=== PATIENT | male | born 1960 | race Caucasian/White ===

== ENCOUNTER 2018-04-21 05:19 | Inpatient (IN) | payer SELFPAY ==
--- OUTSIDE RECORDS SUMMARY | 2018-04-21 05:20 | XMS REPORT | Clinical Summary ---
:1960 Author Organization [facility] Address [address] [place] [id number] Care Team Providers Name Role Phone Asked, No Pcp Primary Care Provider Unavailable Allergies Active Allergy Reactions Severity Noted Date Comments Codeine Rash Low 11/17/2016 Current Medications Prescription Sig. Disp. Refills Start Date End Date Status aspirin (ECOTRIN) 81 MG Take 81 mg by mouth Active enteric coated tablet every morning. multivitamin (THERAGRAN) Take 1 tablet by Active tablet mouth every morning. garlic capsule Take 1 capsule by Active mouth every morning. Active Problems Problem Noted Date Chest pain 11/17/2016 Social History Tobacco Use Types Packs/Day Years Used Date Never Smoker Sex Assigned at Date Recorded Not on file Last Filed Vital Signs Not on file Plan of Treatment Health Maintenance Due Date Last Done Comments COLON CANCER SCREENING 2009 SHINGRIX VACCINE (#1) 2009 INFLUENZA VACCINE 05/31/2018 Results Not on fileafter 04/20/2017
[2018-04-21 06:15] LABS: Absolute Lymphocytes (CBC) 3.3 K/uL (0.7-4.9); Absolute Monocytes 0.7 K/uL (0.1-1.3); Basophils % 0.8 % (0-1.3); Eosinophils % 2.3 % (0-4.4); Lymphocytes % 40.7 % (15.3-44.8); MCH 29.1 pg (27.0-35.0); MCV 87.5 fL (80-100); MPV 8.5 fL (7.6-11.3); Monocytes % 8.1 % (3.3-12.3); RBC Red Blood Cell Count 5.48 M/uL (4.33-5.43)
[2018-04-21 06:31] LABS: Protime INR 0.93
[2018-04-21 06:33] LABS: Bilirubin Direct 0.2 mg/dL (0-0.2); Magnesium 2.2 mg/dL (1.8-2.4); Potassium 3.9 mmol/L (3.5-5.1)
[2018-04-21 09:52] LABS: CKMB Creatine Kinase MB 10.6 ng/mL (0.3-3.6)
--- NOTE | 2018-04-21 10:04 | RAD REPORT ---
EXAM DESCRIPTION: Cinda Single View04/21/2018 5:52 am CLINICAL HISTORY: Chest pain COMPARISON: 2014 FINDINGS: The lungs appear clear of acute infiltrate. The heart is normal size IMPRESSION: No acute abnormalities displayed
--- NOTE | 2018-04-21 10:21 | EDPHYS ---
Physician Documentation [facility] Name: Panchito Ramirez Age: 57 yrs Sex: Male : 1960 Arrival Date: 04/21/2018 Time: 05:22 Bed 14 Private MD: ED Physician Vasquez Farris HPI: 04/21 06:18 This 57 yrs old Male presents to ER via Ambulatory with complaints of Chest jm pain. 06:18 The patient or guardian reports chest pain that is located primarily in the substernal [facility] area. Onset: gradually, at 5 am. The pain radiates to the left shoulder. The chest pain is described as aching. Duration: The patient or guardian reports a single episode, that is still ongoing. This is a 57 year old male whom denies any chronic medical conditions that presents to the ED with chest pain shich radiates across the left side of his chest beginning this morning. Patient states having multiple episodes of chest pain over the past 8 years with negative results. Most recent stress test was 1.5 years ago at [facility]. Patient denies smoking tobacco, denies recreational drug use. Patient states he has been diagnosed with anxiety in previous ED visits. Patient has a family history of CAD at advanced age. . Historical: - Allergies: 05:32 No Known Allergies; bp - Home Meds: 05:32 None [Active]; bp - PMHx: 05:32 Anxiety; bp - Immunization history:: Adult Immunizations up to date. - Social history:: Smoking status: Patient/guardian denies using tobacco. - Ebola Screening: : Patient negative for fever greater than or equal to 101.5 degrees Fahrenheit, and additional compatible Ebola Virus Disease symptoms Patient denies exposure to infectious person Patient denies travel to an Ebola-affected area in the 21 days before illness onset No symptoms or risks identified at this time. ROS: 06:15 Constitutional: Negative for fever, chills, and weight loss. jmm 06:15 Abdomen/GI: Negative for abdominal pain, nausea, vomiting, diarrhea, and constipation, Back: Negative for injury and pain, : Negative for injury, bleeding, discharge, and swelling. 06:15 Neuro: Negative for headache, weakness, numbness, tingling, and seizure, Psych: Negative for depression, anxiety, suicide ideation, homicidal ideation, and hallucinations. 06:15 Cardiovascular: Positive for chest pain. 06:15 Respiratory: Positive for shortness of breath. 06:15 MS/extremity: Positive for pain. 06:15 All other systems are negative. Exam: 06:15 Head/Face: atraumatic. Chest/axilla: Normal chest wall appearance and motion. jmm Nontender with no deformity. No lesions are appreciated. Cardiovascular: Regular rate and rhythm. No gallops, murmurs, or rubs. Full/Equal distal pulses. Respiratory: Lungs have equal breath sounds bilaterally, clear to auscultation. No rales, rhonchi or wheezes noted. No increased work of breathing, no retractions or nasal flaring. 06:15 Constitutional: The patient appears in no acute distress, alert, awake. 06:15 Back: ROM is normal. 06:15 Musculoskeletal/extremity: Extremities: ROM: intact in all extremities. 06:15 Skin: Appearance: Color: normal in color. 06:15 Neuro: Orientation: is normal, Mentation: is normal, Memory: is normal. 06:15 Psych: Behavior/mood is pleasant, cooperative, anxious. Vital Signs: 05:32 BP 150 / 98; Pulse 77; Resp 20; Temp 98; Pulse Ox 100% ; Weight 81.65 kg; Height 5 ft. bp 10 in. (177.80 cm); 05:35 BP 145 / 100; Pulse 79; Resp 15; Pulse Ox 100% ; bp 06:52 BP 139 / 93; Pulse 74; Resp 17; Pulse Ox 98% on R/A; rv 07:17 BP 125 / 95; Pulse 76; Resp 16; Pulse Ox 98% on R/A; em 08:21 BP 117 / 85; Pulse 71; Resp 16; Pulse Ox 100% on R/A; mh5 05:32 Body Mass Index 25.83 (81.65 kg, 177.80 cm) bp MDM: 05:41 Patient medically screened. gs 10:18 The patient was not given aspirin in the Emergency Department. Patient reports taking [facility] aspirin within the past 24 hours. Data reviewed: vital signs, nurses notes, lab test result(s), EKG, radiologic studies, plain films. Physician consultation: Nasir Payton DO. 04/21 05:33 Order name: Basic Metabolic Panel; Complete Time: 06:37 gs 04/21 05:33 Order name: CBC with Diff; Complete Time: 06:37 04/21 05:33 Order name: LFT's; Complete Time: 06:37 04/21 05:33 Order name: Magnesium; Complete Time: 06:37 04/21 05:33 Order name: PT-INR; Complete Time: 06:37 04/21 05:33 Order name: Troponin (emerg Dept Use Only); Complete Time: 06:37 04/21 05:33 Order name: XRAY Chest (1 view); Complete Time: 10:09 04/21 05:33 Order name: EKG; Complete Time: 05:34 04/21 07:27 Order name: D-Dimer; Complete Time: 08:00 [facility] 04/21 08:49 Order name: Ckmb; Complete Time: 09:54 04/21 08:49 Order name: Creatine Phosphokinase; Complete Time: 09:54 04/21 08:49 Order name: Troponin (emerg Dept Use Only); Complete Time: 09:52 04/21 10:32 Order name: Lipid Profile; Complete Time: 11:14 [facility] 04/21 05:33 Order name: Cardiac monitoring; Complete Time: 05:50 04/21 05:33 Order name: EKG - Nurse/Tech; Complete Time: 05:50 04/21 05:33 Order name: IV Saline Lock; Complete Time: 06:32 04/21 05:33 Order name: Labs collected and sent; Complete Time: 06:32 04/21 05:33 Order name: O2 Per Protocol; Complete Time: 05:50 04/21 05:33 Order name: O2 Sat Monitoring; Complete Time: 05:50 04/21 08:49 Order name: EKG; Complete Time: 08:49 em 04/21 08:49 Order name: EKG - Nurse/Tech; Complete Time: 09:30 em Administered Medications: 11:01 Not Given (Physician Discretion): Aspirin Chewable Tablet 324 mg PO once; 81 mg tablets iw x 4 Disposition: 19:07 Co-signature as Attending Physician, Vasquez Farris MD. Disposition: 04/21/18 10:20 Hospitalization ordered by Nasir Payton for Inpatient Admission. Preliminary diagnosis is Non-ST elevation (NSTEMI) myocardial infarction. - Bed requested for Telemetry/MedSurg (Inpatient). - Status is Inpatient Admission. em - Condition is Stable. - Problem is new. - Symptoms have improved. UTI on Admission? No Signatures: Dispatcher [employer] Sandi Garcia, RN RN Landen Chen PA PA [facility] Livan, Dejon, MANUFACTURING PRODUCTION TECHNICIAN MANUFACTURING PRODUCTION TECHNICIAN em Sandip Chen MD MD rn Starr, Gregory, MD MD Maurisio Hathaway RN RN bp Williams, Irene RN iw Corrections: (The following items were deleted from the chart) 08:23 05:33 Urine Dipstick-Ancillary ordered. em 10:50 10:20 Hospitalization Ordered by Nasir Payton DO for Inpatient Admission. Preliminary diagnosis is Non-ST elevation (NSTEMI) myocardial infarction. Bed requested for Telemetry/MedSurg (Inpatient). Status is Inpatient Admission. Condition is Stable. Problem is new. Symptoms have improved. UTI on Admission? No. [facility] 11:56 10:50 04/21/2018 10:20 Hospitalization Ordered by Nasir Payton DO for Inpatient em Admission. Preliminary diagnosis is Non-ST elevation (NSTEMI) myocardial infarction. Bed requested for Telemetry/MedSurg (Inpatient). Status is Inpatient Admission. Condition is Stable. Problem is new. Symptoms have improved. UTI on Admission? No. dw
--- NOTE | 2018-04-21 10:21 | ER ---
Nurse's Notes [facility] Name: Panchito Ramirez Age: 57 yrs Sex: Male : 1960 Arrival Date: 04/21/2018 Time: : Bed 14 Private MD: Diagnosis: Non-ST elevation (NSTEMI) myocardial infarction Presentation: 04/21 05:31 Presenting complaint: Patient states: I'VE GOT THIS PAIN IN MY CHEST THAT FEELS LIKE bp INDIGESTION. Transition of care: patient was not received from another setting of care. Onset of symptoms was April 21, 2018 at 05:00. Risk Assessment: Do you want to hurt yourself or someone else? Patient reports no desire to harm self or others. Initial Sepsis Screen: Does the patient meet any 2 criteria? No. Patient's initial sepsis screen is negative. Does the patient have a suspected source of infection? No. Patient's initial sepsis screen is negative. Care prior to arrival: Medication(s) given: ASA, 325 mg. 05:31 Method Of Arrival: Ambulatory bp 05:31 Acuity: ION 3 bp Triage Assessment: 05:32 General: Appears in no apparent distress. comfortable, Behavior is cooperative, bp appropriate for age, anxious. Pain: Complains of pain in anterior aspect of left upper chest. EENT: No deficits noted. Neuro: Level of Consciousness is awake, alert, obeys commands, Oriented to person, place, time, situation, Appropriate for age. Cardiovascular: Reports chest pain, since 0500 Rhythm is sinus rhythm. Respiratory: Airway is patent Respiratory effort is even, unlabored, Respiratory pattern is regular, symmetrical. GI: No signs and/or symptoms were reported involving the gastrointestinal system. : No signs and/or symptoms were reported regarding the genitourinary system. Derm: No deficits noted. Musculoskeletal: Circulation, motion, and sensation intact. Range of motion: intact in all extremities. Historical: - Allergies: 05:32 No Known Allergies; bp - Home Meds: 05:32 None [Active]; bp - PMHx: 05:32 Anxiety; bp - Immunization history:: Adult Immunizations up to date. - Social history:: Smoking status: Patient/guardian denies using tobacco. - Ebola Screening: : Patient negative for fever greater than or equal to 101.5 degrees Fahrenheit, and additional compatible Ebola Virus Disease symptoms Patient denies exposure to infectious person Patient denies travel to an Ebola-affected area in the 21 days before illness onset No symptoms or risks identified at this time. Screenin:36 Abuse screen: Denies threats or abuse. Denies injuries from another. Nutritional bp screening: No deficits noted. Tuberculosis screening: No symptoms or risk factors identified. Fall Risk None identified. Assessment: 05:35 Reassessment: PT SEEN FOR SAME ON MX PREVIOUS VISITS, STATES CLEAN MX UNREMARKABLE bp STRESS TESTS AND MX DIAGNOSES OF ANXIETY. 06:53 Reassessment: Patient and/or family updated on plan of care and expected duration. Pain rv level reassessed. Patient is alert, oriented x 3, equal unlabored respirations, skin warm/dry/pink. patient comfortable lying on bed. vitals are within normal limits. pain subsided. 07:02 Reassessment: patient's lab results are normal. report given to next shift. rv 07:10 General: Appears in no apparent distress. comfortable, Behavior is calm, cooperative. em Pain: Complains of pain in anterior aspect of left upper chest Quality of pain is described as "aching pressure" Pain began 0500 this morning. Neuro: Level of Consciousness is awake, alert, obeys commands, Oriented to person, place, time, situation. Cardiovascular: Capillary refill < 3 seconds Patient's skin is warm and dry. Respiratory: Airway is patent Respiratory effort is even, unlabored, Respiratory pattern is regular, symmetrical. GI: Abdomen is flat. : No signs and/or symptoms were reported regarding the genitourinary system. EENT: No signs and/or symptoms were reported regarding the EENT system. Derm: Skin is intact, Skin is pink, warm \\T\\ dry. Musculoskeletal: Range of motion: intact in all extremities. 07:30 Reassessment: Patient appears in no apparent distress at this time. I agree with above iw assessment by Dejon Licona LVN. 08:10 Reassessment: Patient appears in no apparent distress at this time. Patient and/or em family updated on plan of care and expected duration. Pain level reassessed. Patient is alert, oriented x 3, equal unlabored respirations, skin warm/dry/pink. reports pressure, rates pain 3/10. 09:15 Reassessment: repeat EKG and cardiac enzymes sent to lab. em 10:00 Reassessment: Patient appears in no apparent distress at this time. Patient and/or em family updated on plan of care and expected duration. Pain level reassessed. Patient is alert, oriented x 3, equal unlabored respirations, skin warm/dry/pink. chest pain described as "achy, pressure". 11:09 Reassessment: Patient appears in no apparent distress at this time. Patient and/or em family updated on plan of care and expected duration. Pain level reassessed. Patient is alert, oriented x 3, equal unlabored respirations, skin warm/dry/pink. Vital Signs: 05:32 BP 150 / 98; Pulse 77; Resp 20; Temp 98; Pulse Ox 100% ; Weight 81.65 kg; Height 5 ft. bp 10 in. (177.80 cm); 05:35 BP 145 / 100; Pulse 79; Resp 15; Pulse Ox 100% ; bp 06:52 BP 139 / 93; Pulse 74; Resp 17; Pulse Ox 98% on R/A; rv 07:17 BP 125 / 95; Pulse 76; Resp 16; Pulse Ox 98% on R/A; em 08:21 BP 117 / 85; Pulse 71; Resp 16; Pulse Ox 100% on R/A; mh5 05:32 Body Mass Index 25.83 (81.65 kg, 177.80 cm) bp ED Course: 05:22 Patient arrived in ED. bb 05:31 Maurisio Hathaway, RN is Primary Nurse. bp 05:32 Triage completed. bp 05:32 Arm band placed on. bp 05:36 Patient has correct armband on for positive identification. Placed in gown. Bed in low bp position. Call light in reach. Side rails up X2. 05:41 Vasquez Farris MD is Attending Physician. gs 05:46 Missed attempt(s): 20 gauge in right antecubital area. ks6 05:46 Missed attempt(s): 22 gauge in left antecubital area. ks6 05:51 X-ray completed. Portable x-ray completed in exam room. Patient tolerated procedure kw well. 05:52 XRAY Chest (1 view) In Process Unspecified. EDMS 06:03 Landen Ruano PA is PHCP. [facility] 06:03 Vasquez Farris MD is Attending Physician. [facility] 06:12 Inserted saline lock: 20 gauge in right forearm, using aseptic technique. rv 09:05 EKG done, by filter changing technician. reviewed by Landen FERRER Repeat EKG. at1 09:15 No provider procedures requiring assistance completed. Repeat lab(s) drawn. by nh, sent em to lab. 10:20 Nasir Payton DO is Hospitalizing Provider. [facility] 11:55 Patient admitted, IV remains in place. em Administered Medications: 11:01 Not Given (Physician Discretion): Aspirin Chewable Tablet 324 mg PO once; 81 mg tablets iw x 4 Outcome: 10:20 Decision to Hospitalize by Provider. m 11:56 Admitted to Tele accompanied by tech, room 425, Report called to DEIDRE Valera em 11:56 Condition: good 11:56 Instructed on the need for admit. 11:56 Patient left the ED. em Signatures: Dispatcher [employer] EDMS Landen Ruano PA PA [facility] Livan, Dejon, PRECISION GRINDER PRECISION GRINDER em Harper Urbina, RN RN Janki Ca RN RN iw Whitley, Kimberlee kw gonzales, Amanda, alarm installation technician EKG Tat1 Katelynn Garcia mh5 Vasquez Farris MD MD gs Peltier, Brian, RN RN bp Vicente, Ronaldo, RN RN Alex Isbell6
[2018-04-21] MEDS ORDERED: NITROGLYCERIN 0.4 MG/TAB SL PRN (10:41)
[2018-04-21] MEDS ORDERED: MORPHINE 4 MG/ML SYR IV PRN (10:41)
[2018-04-21] MEDS ORDERED: ACETAMINOPHEN 500 MG TAB PO PRN (10:41)
[2018-04-21] MEDS ORDERED: ONDANSETRON 4 MG/2 ML VIAL IV PRN (10:41)
--- NOTE | 2018-04-21 11:11 | EKG ---
Test Date: 2018-04-21 Test Time: 09:00:03 Line Construction Supervisor: MAT MEASUREMENT RESULTS: Intervals: Rate: 72 KS: 136 QRSD: 84 QT: 386 QTc: 422 [place]: P: 51 KS: 136 QRS: 53 T: 62 INTERPRETIVE STATEMENTS: Normal sinus rhythm Nonspecific ST abnormality Abnormal ECG Compared to ECG 04/21/2018 05:24:24 ST (T wave) deviation now present Electronically Signed On 04-21-18 11:10:10 CDT by Elias Ochoa
--- NOTE | 2018-04-21 11:11 | P.HP ---
Certification for Inpatient Patient admitted to: Inpatient With expected LOS: >2 Midnights Patient will require the following post-hospital care: None Practitioner: I am a practitioner with admitting privileges, knowledge of patient current condition, hospital course, and medical plan of care. Services: Services provided to patient in accordance with Admission requirements found in Title 42 Section 412.3 of the Code of Federal Regulations Patient History Date of Service: 04/21/18 Primary Care Provider: Dr. Buenrostro Reason for admission: Chest pain History of Present Illness: 57-year-old male presented emergency room with chest pain. Patient reported chest pain to the substernal region and to the left side. He reported the pain, more of a pressure like sensation. He thought that this was more indigestion. Chest pain started about 5:00 a.m. when he woke up. Patient reports a history of chest pain in the past. He has had multiple stress tests done in the past which were unremarkable. His last stress test was done about 1 -1/2 years ago at [facility]. Patient denied any fever, chills, nausea, vomiting , dizziness or palpitations. Patient came to ER for further evaluation. He did take ASA prior to coming to the ER. In the ER he was evaluated. Initial blood pressure was slightly elevated. Initial cardiac enzymes were within normal range. A 2nd set showed a troponin elevated at 0.68. Elevated CKMB was also elevated. No EKG changes of ST elevation was noted. Patient was admitted for further treatment. In the ER when I evaluated the patient he was without any significant chest pain. Patient reports a history of elevated blood pressure in the past but related this more to white coat syndrome. Patient also reports of history of hyperlipidemia. He does not take any medication at this time except aspirin. Patient denies any alcohol or tobacco use. There is a family history of cardiac disease. Allergies codeine Allergy (Mild, Verified 11/21/14 02:16) Rash Home medications list reviewed: Yes Home Medications: Aspirin [Low Dose Aspirin EC] 1 tab PO DAILY 11/21/14 Multivitamin [Daily Multivitamin] 1 tab PO DAILY 11/21/14 Pantoprazole [Protonix Tab*] 40 mg PO DAILY #30 tab 11/21/14 - Past Medical/Surgical History Diabetic: No -: Elevated blood pressure -: Hyperlipidemia Past Surgical History: Patient denies surgical history Psychosocial/ Personal History: The patient is single. He has no children. He is a computer operations technician - Family History Father -: Heart disease ([place] at 65), Stroke, Other (see notes) Notes: [place] - Social History Smoking Status: Never smoker Alcohol use: No CD- Drugs: No Caffeine use: Yes Place of Residence: Home Review of Systems General: As per HPI Eyes: Unremarkable ENT: Unremarkable Respiratory: Unremarkable Cardiovascular: Chest Pain, As per HPI Gastrointestinal: Unremarkable Genitourinary: Unremarkable Musculoskeletal: Unremarkable Integumentary: Unremarkable Neurological: Unremarkable Lymphatics: Unremarkable Physical Examination - Physical Exam General: Alert, In no apparent distress, Oriented x3, Cooperative HEENT: Atraumatic, Normocephalic, PERRLA, Mucous membr. moist/pink Neck: Supple, No Thyromegaly Respiratory: Clear to auscultation bilaterally, Normal air movement Cardiovascular: Normal pulses, Regular rate/rhythm Gastrointestinal: Normal bowel sounds, Soft and benign, Non-distended, No tenderness, No masses, No rebound, No guarding Musculoskeletal: No contractures, No erythema, No tenderness, No warmth Integumentary: No tenderness/swelling, No erythema, No warmth, No cyanosis Neurological: Normal speech, Normal strength at 5/5 x4 extr, Normal tone, Normal affect Lymphatics: No axilla or inguinal lymphadenopathy - Studies Laboratory Data (last 24 hrs) 04/21/18 06:05: PT 11.0, INR 0.93 04/21/18 06:05: WBC 8.2, Hgb 16.0, Hct 48.0, Plt Count 246 04/21/18 06:05: Sodium 141, Potassium 3.9, BUN 12, Creatinine 1.00, Glucose 119 H, Magnesium 2.2, Total Bilirubin 1.0, AST 19, ALT 36, Alkaline Phosphatase 98 Assessment and Plan - Problems (Diagnosis) (1) NSTEMI (non-ST elevated myocardial infarction) Current Visit: Yes Status: Acute Plan: Patient with initial troponin normal now with elevated troponin. Patient with non ST wave [place]. Patient will be admitted for further treatment. Will start Lovenox, aspirin, Lipitor. Provide medication for chest pain. Blood pressure medication-metoprolol has been started. Will discuss case with cardiology. Patient will need cardiac intervention. (2) Hypertension Current Visit: Yes Status: Acute Plan: Will start metoprolol. Qualifiers: Hypertension type: essential hypertension Qualified Code(s): I10 - Essential (primary) hypertension (3) Hyperlipidemia Current Visit: Yes Status: Chronic Plan: Patient reports a history of hyperlipidemia but does not take any medication. Will start Lipitor. Will check fasting lipid panel. Qualifiers: Hyperlipidemia type: unspecified Qualified Code(s): E78.5 - Hyperlipidemia , unspecified (4) Chest pain Onset Date: 11/21/14 Current Visit: No Status: Acute Plan: Secondary to above. Continue as above. Qualifiers: Chest pain type: chest pain due to myocardial ischemia Ischemic chest pain type: unstable angina pectoris Qualified Code(s): I20.0 - Unstable angina (5) GERD (gastroesophageal reflux disease) Current Visit: Yes Status: Suspected Plan: Will start PPI Qualifiers: Esophagitis presence: esophagitis presence not specified Qualified Code(s) : K21.9 - Gastro-esophageal reflux disease without esophagitis Discharge Plan: Home Plan to discharge in: Greater than 2 days - Advance Directives Does patient have a Living Will: No Does patient have a Durable POA for Healthcare: No - Code Status/Comfort Care Code Status Assessed: Yes Time Spent Managing Pts Care (In Minutes): 55
--- NOTE | 2018-04-21 11:11 | EKG ---
Test Date: 2018-04-21 Test Time: 05:24:24 Furniture Sander: ISABEL MEASUREMENT RESULTS: Intervals: Rate: 78 SC: 138 QRSD: 86 QT: 370 QTc: 421 [place]: P: 57 SC: 138 QRS: 63 T: 19 INTERPRETIVE STATEMENTS: Normal sinus rhythm Normal ECG Compared to ECG 11/21/2014 07:00:35 No significant changes Electronically Signed On 04-21-18 11:11:09 CDT by Elias Ochoa
[2018-04-21] MEDS: NA CHLORIDE 0.9% 1,000 ML IV SCH ×2 (12:37→21:53)
[2018-04-21] MEDS: ENOXAPARIN 80 MG/0.8 ML SQ SCH ×2 (13:23→21:51)
[2018-04-21 13:55] VITALS: BMI 27.3
[2018-04-21] MEDS: METOPROLOL TAR 25 MG TAB PO SCH (17:17)
[2018-04-21 17:34] LABS: Urine Appearance CLEAR; Urine Bilirubin NEGATIVE (NEG); Urine Blood NEGATIVE (NEG); Urine Color YELLOW; Urine Glucose NEGATIVE (NEG); Urine Protein NEGATIVE (NEG); Urine Specific Gravity 1.015 (1.005-1.030); Urine Urobilinogen 0.2 mg/dL (0.2-1.0)
[2018-04-21 17:35] LABS: Urine Microscopic Reflex NO UMIC
[2018-04-21 18:42] LABS: CKMB Creatine Kinase MB 101.2 ng/mL (0.3-3.6)
--- NOTE | 2018-04-21 18:55 | ECHO ---
HEIGHT: 5 ft 8 in WEIGHT: 180 lb 0 oz DATE OF STUDY: 04/21/[address]: Nasir Payton DO 2-DIMENSIONAL: YES M.MODE: YES DOPPLER: YES COLOR FLOW: YES TDS: NO PORTABLE: NO DEFINITY: NO BUBBLE STUDY: NO DIAGNOSIS: NON ST ELEVATION MYOCARDIAL INFARCTION CARDIAC HISTORY: CATHERIZATION: NO SURGERY: NO PROSTHETIC VALVE: NO PACEMAKER: NO MEASUREMENTS (cm) DIASTOLIC (NORMALS) SYSTOLIC (NORMALS) IVSd 1.0 (0.6-1.2) LA Diam 3.8 (1.9-4.0) LVEF 54% LVIDd 4.3 (3.5-5.7) LVIDs 3.1 (2.0-3.5) %FS 27% LVPWd 1.0 (0.6-1.2) Ao Diam 3.3 (2.0-3.7) 2 DIMENSIONAL ASSESSMENT: RIGHT ATRIUM: NORMAL LEFT ATRIUM: NORMAL RIGHT VENTRICLE: NORMAL LEFT VENTRICLE: NORMAL TRICUSPID VALVE: NORMAL MITRAL VALVE: NORMAL PULMONIC VALVE: NORMAL AORTIC VALVE: SCLEROSIS PERICARDIAL EFFUSION: NONE AORTIC ROOT: NORMAL LEFT VENTRICULAR WALL MOTION: MILD ANTERIOR HYPOKINESIS. DOPPLER/COLOR FLOW: MILD TRICUSPID REGURGITATION. COMMENTS: MILD TRICUSPID REGURGITATION. NORMAL RIGHT VENTRICULAR SYSTOLIC PRESSURE. MILD ANTERIOR HYPOKINESIS. NORMAL EFFUSION. AORTIC SCLEROSIS. TECHNOLOGIST: NICOLASA STOVALL
[2018-04-21] MEDS ORDERED: POTASSIUM 25 MEQ EFFERV TAB PO ONE (20:00)
[2018-04-21] MEDS ORDERED: ENOXAPARIN 100 MG/ML SYR SQ SCH (21:00)
[2018-04-21] MEDS: ATORVASTATIN 80 MG TAB PO SCH (21:51)
[2018-04-22 03:12] LABS: CKMB Creatine Kinase MB 96.3 ng/mL (0.3-3.6)
[2018-04-22 05:03] LABS: Absolute Lymphocytes (CBC) 2.1 K/uL (0.7-4.9); Absolute Monocytes 0.9 K/uL (0.1-1.3); Absolute Neutrophil 8.3 K/uL (1.8-8.0); Basophils % 0.5 % (0-1.3); Eosinophils % 0.3 % (0-4.4); Hematocrit 45.5 % (39.6-49.0); Lymphocytes % 18.7 % (15.3-44.8); MCH 28.8 pg (27.0-35.0); MCV 87.4 fL (80-100); MPV 8.6 fL (7.6-11.3); Monocytes % 7.6 % (3.3-12.3); RBC Red Blood Cell Count 5.21 M/uL (4.33-5.43)
[2018-04-22 05:08] LABS: BUN Blood Urea Nitrogen 9 mg/dL (7-18); Bicarbonate 27 mmol/L (21-32); Glucose Level 103 mg/dL (74-106); Magnesium 1.9 mg/dL (1.8-2.4); Potassium 4.1 mmol/L (3.5-5.1); Sodium Level 142 mmol/L (136-145)
[2018-04-22] MEDS: PANTOPRAZOLE 40MG TABLET PO SCH (06:18)
[2018-04-22] MEDS: METOPROLOL TAR 25 MG TAB PO SCH ×2 (06:18→17:11)
[2018-04-22] MEDS: NA CHLORIDE 0.9% 1,000 ML IV SCH ×2 (09:08→17:12)
[2018-04-22] MEDS: ENOXAPARIN 80 MG/0.8 ML SQ SCH ×2 (09:09→20:14)
[2018-04-22] MEDS: ASPIRIN EC 81 MG TAB PO SCH (09:09)
--- NOTE | 2018-04-22 13:00 | CON ---
Reason For Consultation: Non ST-elevation myocardial infarction. History Of Present Illness: Mr. Ramirez is a 57-year-old male with history of anxiety, family history of heart disease, came in with classic symptoms of chest pain with exertion, radiating to the both s houlder. Some nausea and diaphoresis, but no shortness of breath. Normal EKG and chest x-ray. He h ad positive CPK and troponin. Was given aspirin, Lovenox, beta-wenceslao. He has been admitted for ob servation. He is pain-free now. Allergies: CODEINE. Review of Systems: Negative. Social History: Negative. Family History: Positive for heart disease. Medications: At home are none. Physical Examination: Vital Signs: Stable. General: He is in no acute distress. HEENT: Negative. Neck: Supple. No bruit. Chest: Clear to auscultation and percussion. Cardiac: Exam revealed a regular rhythm and rate without any murmurs, gallops, or rubs. Abdomen: Benign. Extremities: Revealed no clubbing, cyanosis, or edema. Diagnostic Data: As stated earlier. Impression And Plan: Non-ST elevation myocardial infarction. We will continue aspirin, Lovenox, met oprolol, nitroglycerin as needed or morphine as needed for chest pain. EKG showed an unremarkable. We will set him up for a heart catheterization on Tuesday morning. He understand the risks and the be nefits and agreed to proceed. ROLANDA/JUDIT Voice ID: [id number] Report ID: [id number]
--- NOTE | 2018-04-22 15:24 | PN ---
Subjective: Currently is lying in bed. He looks comfortable. He had no chest pain. No abdominal p ain. No fever, no chills. No nausea, no vomiting. Objective: Vital Signs: Blood pressure is 128/77, respiratory rate 18, pulse 74, temperature 97.8. General: He is fully alert and oriented x3. Does not look in any distress. HEENT: Atraumatic, normocephalic. PERRLA. Oral mucosa is moist. Neck: Supple. No JVD. No carotid bruits. Chest: Clear to auscultation. Good air entry. Heart: Regular rate and rhythm. S1, S2 normal. No gallop or murmur. Abdomen: Soft, nontender. No masses. No hepatosplenomegaly. Positive bowel sounds. Extremities: No clubbing, cyanosis, or edema. No calf tenderness. Neurologic: Grossly intact. Echocardiogram done yesterday showed mild tricuspid regurgitation, normal right ventricular systolic pressure, mild anterior hypokinesis, mild effusion with aortic sclerosis. Laboratory Data: Labs today. CBC was normal except for white blood cells 11.4. Chemistry was ariel l except for chloride of 109, calcium 8.4. D-dimer within normal. Troponin peaked at 31.2. I will recheck in the morning to make sure it is trending down. Assessment And Plan: 1.Non ST-elevation myocardial infarction. We will continue the patient on full dose of Lovenox, sta tin, aspirin, and beta wenceslao. Cardiology consult appreciated. The patient will have cardiac cath on Tuesday. 2.Chest pain, resolved. We will treat symptomatically with morphine. 3.Hyperlipidemia, on statin. Advised the patient about diet. 4.Avoid exertion. MT/MODL Voice ID: [id number] Report ID: [id number]
[2018-04-22] MEDS: ATORVASTATIN 80 MG TAB PO SCH (20:14)
[2018-04-23] MEDS: NA CHLORIDE 0.9% 1,000 ML IV SCH ×2 (04:08→14:26)
[2018-04-23 04:11] LABS: Absolute Lymphocytes (CBC) 2.9 K/uL (0.7-4.9); Absolute Monocytes 0.8 K/uL (0.1-1.3); Basophils % 0.7 % (0-1.3); Eosinophils % 0.7 % (0-4.4); Hematocrit 44.6 % (39.6-49.0); Lymphocytes % 29.9 % (15.3-44.8); MCH 28.9 pg (27.0-35.0); MPV 8.8 fL (7.6-11.3); Monocytes % 7.7 % (3.3-12.3); RBC Red Blood Cell Count 5.07 M/uL (4.33-5.43)
[2018-04-23 04:32] LABS: Magnesium 2.1 mg/dL (1.8-2.4); Potassium 4.5 mmol/L (3.5-5.1)
[2018-04-23] MEDS: PANTOPRAZOLE 40MG TABLET PO SCH (05:35)
[2018-04-23] MEDS: METOPROLOL TAR 25 MG TAB PO SCH ×2 (05:36→17:02)
[2018-04-23] MEDS: ENOXAPARIN 80 MG/0.8 ML SQ SCH ×2 (07:59→21:19)
[2018-04-23] MEDS: ASPIRIN EC 81 MG TAB PO SCH (07:59)
--- NOTE | 2018-04-23 13:49 | PN ---
Subjective: Currently, the patient is lying in bed. He looks comfortable. He reported some chest s queezing. There was mild nausea. No vomiting. No fever. No chills. No shortness of breath. Physical Examination: Vital Signs: Blood pressure 109/64, respiratory rate 16, pulse 66, temperature 97.9. General: The patient is alert and oriented x3. Does not look in any distress. HEENT: Atraumatic, normocephalic. PERRLA. Oral mucosa is moist. Neck: Supple. No JVD. No carotid bruits. Chest: Clear to auscultation. Good air entry. Heart: Regular rate and rhythm. S1, S2 normal. No gallop or murmur. Abdomen: Soft, nontender. No masses. No hepatosplenomegaly. Positive bowel sounds. Extremities: No clubbing, cyanosis, or edema. No calf tenderness. Neurologic: Grossly intact. Cranial nerve exam 2 through 12 intact. Normal sensation. Normal refl exes. Normal muscle strength. Laboratory Data: Today showed CBC within normal including white blood cells 9.8. CMP within normal. Repeat troponin is pending. Assessment And Plan: 1.Non-ST elevation myocardial infarction. We will continue the patient on full dose of Lovenox for anticoagulation, statin, aspirin, and beta-wenceslao. Cardiac cath Tuesday morning. 2.Chest pain, minimal. The patient is on p.r.n. morphine as needed. 3.Hyperlipidemia. The patient is on statin. 4.Discharge plan. Hopefully tomorrow after catheterization is done and this patient need to be love sferred to [facility]. SILVIA/JUDIT Voice ID: [id number] Report ID: [id number]
[2018-04-23] MEDS: ATORVASTATIN 80 MG TAB PO SCH (21:19)
[2018-04-24] MEDS: NA CHLORIDE 0.9% 1,000 ML IV SCH ×3 (00:25→17:46)
[2018-04-24 04:20] LABS: Absolute Monocytes 0.9 K/uL (0.1-1.3); Basophils % 0.7 % (0-1.3); Eosinophils % 0.9 % (0-4.4); Hematocrit 42.8 % (39.6-49.0); Lymphocytes % 29.6 % (15.3-44.8); MCH 29.2 pg (27.0-35.0); MCV 87.6 fL (80-100); MPV 8.6 fL (7.6-11.3); Monocytes % 8.8 % (3.3-12.3); RBC Red Blood Cell Count 4.89 M/uL (4.33-5.43)
[2018-04-24 04:34] LABS: Potassium 3.9 mmol/L (3.5-5.1)
[2018-04-24] MEDS ORDERED: KCL 20 MEQ/100 mL IVPB 20 MEQ/100 ML BAG IV SCH (05:00)
[2018-04-24] MEDS: METOPROLOL TAR 25 MG TAB PO SCH ×3 (05:47→17:47)
[2018-04-24] MEDS: PANTOPRAZOLE 40MG TABLET PO SCH (05:47)
[2018-04-24] MEDS: ASPIRIN EC 81 MG TAB PO SCH (07:09)
[2018-04-24] MEDS: ENOXAPARIN 80 MG/0.8 ML SQ SCH (08:13)
[2018-04-24] MEDS ORDERED: NA CHLORIDE 0.9% 50 ML ONE (09:17)
[2018-04-24] MEDS ORDERED: HEPARIN 5000 UNIT/ML 1 ML VIAL ONE (09:17)
[2018-04-24] MEDS ORDERED: NICARDIPINE HCL 25 MG/10 ML IV ONE (09:17)
[2018-04-24] MEDS ORDERED: ATROPINE SULF 1 MG/10 ML SYR IV ONE (09:17)
[2018-04-24] MEDS ORDERED: HEPA 1000U/500MLS 1,000 UNIT/500 ML BAG IV ONE ×3 (09:37→11:10)
[2018-04-24] MEDS ORDERED: MIDAZOLAM HCL 2 MG/2 ML INJ ONE ×2 (09:40→10:28)
[2018-04-24] MEDS ORDERED: LIDOCAINE 1% 20 ML MDV ONE (09:40)
[2018-04-24] MEDS ORDERED: FENTANYL CITR 100 MCG/2 ML ONE (09:40)
[2018-04-24] MEDS ORDERED: NA CHLORIDE 0.9% 500 ML ONE (10:00)
--- NOTE | 2018-04-24 10:44 | P.PN ---
Subjective Date of Service: 04/24/18 Primary Care Provider: Dr. Buenrostro Chief Complaint: Chest pain Subjective: Doing well Physical Examination - Vital Signs Temperature: 96.6 F Blood Pressure: 122/75 Pulse: 77 Respirations: 18 Pulse Ox (%): 98 - Physical Exam General: Alert, In no apparent distress, Oriented x3, Cooperative HEENT: Atraumatic Neck: Supple Respiratory: Clear to auscultation bilaterally, Normal air movement Cardiovascular: Normal pulses, Regular rate/rhythm Gastrointestinal: Normal bowel sounds, Soft and benign, Non-distended, No tenderness, No masses, No rebound, No guarding Musculoskeletal: No erythema, No tenderness, No warmth Integumentary: No tenderness/swelling, No erythema, No warmth, No cyanosis Neurological: Normal speech, Normal strength at 5/5 x4 extr, Normal tone, Normal affect - Studies Medications List Reviewed: Yes Assessment & Plan - Problems (Diagnosis) (1) NSTEMI (non-ST elevated myocardial infarction) Onset Date: 04/24/18 Current Visit: Yes Status: Acute Plan: Continue with current medication. Patient have heart catheterization today. Await further recommendations from cardiology. (2) Hypertension Onset Date: 04/24/18 Current Visit: Yes Status: Acute Plan: Continue with medication. Blood pressure controlled. Qualifiers: Hypertension type: essential hypertension Qualified Code(s): I10 - Essential (primary) hypertension (3) Hyperlipidemia Onset Date: 04/24/18 Current Visit: Yes Status: Chronic Plan: Continue with medication Qualifiers: Hyperlipidemia type: unspecified Qualified Code(s): E78.5 - Hyperlipidemia , unspecified (4) Chest pain Onset Date: 04/24/18 Current Visit: Yes Status: Acute Plan: Secondary to above. Continue as above. Qualifiers: Chest pain type: chest pain due to myocardial ischemia Ischemic chest pain type: unstable angina pectoris Qualified Code(s): I20.0 - Unstable angina (5) GERD (gastroesophageal reflux disease) Onset Date: 04/24/18 Current Visit: Yes Status: Suspected Plan: Continue with medication. Qualifiers: Esophagitis presence: esophagitis presence not specified Qualified Code(s) : K21.9 - Gastro-esophageal reflux disease without esophagitis Discharge Plan: Home Plan to discharge in: 24 Hours Time Spent Managing Pts Care (In Minutes): 55
[2018-04-24] MEDS ORDERED: PRASUGREL (EFFIENT) 10 MG TAB ONE (10:48)
[2018-04-24] MEDS ORDERED: NA CHLORIDE 0.9% 100 ML ONE (16:02)
[2018-04-24] MEDS ORDERED: ACETAMINOPHEN 325 MG TABLET PO PRN (17:21)
[2018-04-24] MEDS: ATORVASTATIN 80 MG TAB PO SCH (20:56)
--- NOTE | 2018-04-24 22:53 | OP ---
Surgeon: Elias Ochoa MD Procedures: Left heart catheterization, coronary and left ventricular angiography, percutaneous ne nary intervention of the proximal left anterior descending. A stent was placed for a 95% stenosis. Procedure Findings: The patient had a depressed ejection fraction about 35% to 39%. There is akines is of the apex and anterolateral wall, and there was a proximal 95% stenosis thrombosed, long and irr egular. The right coronary and circumflex were free of any significant disease. After the intervent ion, there was no stenosis. There was KAREN grade 2.5 distal flow. During the procedure, there had b een KAREN 1 flow, treated with intracoronary nitroglycerin. Procedure In Detail: The patient had evidence of a non-ST elevation, non-Q-wave AK. He was brought to the cardiac microbiological lab technician in a fasting state, sedated with Versed and fentanyl, prepared and draped in the usual sterile fashion. Right radial approach was used. The tissues over the right radial artery were anesthetized with lidocaine. A needle was used to enter the artery, a 21-gauge needle. A 0.02 1-inch diameter guidewire was used to cannulate the right radial artery, and then, the modified Seldi nger technique was used to place a 6[facility] sheath. The sheath was flushed and a radial cockt ail was given consisting of nicardipine, heparin, and nitroglycerin. We used a TIG catheter by [employer] and were able to engage right and left coronary and left ventricle using this catheter. After a de cision was made to do a stent in the proximal LAD, an exchange length guidewire was used. We exchang ed the TIG catheter out for an [place] left 3.5 with side holes. We gave Angiomax, demonstrated that t he activated clotting time was over 300 seconds, and we gave 60 mg of Effient. The patient had had a spirin today. We crossed the lesion with a [place] 0.014-inch diameter coronary guidewire. We then p rimarily stented the lesion with a 3.0 x 20 stent. We then postdilated the proximal half of the sten t with a 3.5 x 12 Emerge balloon. There was a low reflow phenomenon. There was never the zero reflo w. After about 600 mg of intracoronary nitroglycerin given in stages over about 15 minutes, the KAREN grade flow was almost up to KAREN 3, and I have listed it as KAREN 2.5 distal flow. No residual steno sis. The guide catheter was then withdrawn away from the ostium. A guidewire was used to straighten out the catheter, and then, the wires were all removed, and the Terumo sheath was flushed, removed, and the arteriotomy closed with a TR band. Complications from the procedure, none. Estimated blood loss, 10 cc. ALETHA/JUDIT Voice ID: [id number] Report ID: [id number]
[2018-04-25] MEDS: METOPROLOL TAR 25 MG TAB PO SCH (05:49)
[2018-04-25] MEDS: PANTOPRAZOLE 40MG TABLET PO SCH (05:50)
[2018-04-25 06:02] LABS: Hematocrit 43.5 % (39.6-49.0); MCV 87.3 fL (80-100); MPV 8.8 fL (7.6-11.3); RBC Red Blood Cell Count 4.98 M/uL (4.33-5.43)
[2018-04-25 06:22] LABS: Magnesium 2.2 mg/dL (1.8-2.4); Potassium 4.4 mmol/L (3.5-5.1)
[2018-04-25] MEDS: NA CHLORIDE 0.9% 1,000 ML IV SCH (08:00)
[2018-04-25 08:16] VITALS: BP 111/65; TEMP 97.7
[2018-04-25] MEDS: ASPIRIN EC 81 MG TAB PO SCH (08:30)
[2018-04-25] MEDS ORDERED: CLOPIDOGREL 75 MG TABLET PO SCH (09:00)
--- NOTE | 2018-04-25 09:36 | P.DS ---
Admission Date: 04/21/18 Discharge Date: 04/25/18 Primary Care Provider: Dr. Buenrostro Disposition: ROUTINE DISCHARGE Discharge Condition: GOOD Reason for Admission: Chest pain Consultations: Cardiology-Dr. Ochoa Procedures: ECHO: Fraction 54%. Mild tricuspid regurgitation. Heart catheterization: Surgeon: Elias Ochoa MD Procedures: Left heart catheterization, coronary and left ventricular angiography, percutaneous coronary intervention of the proximal left anterior descending. A stent was placed for a 95% stenosis. Procedure Findings: The patient had a depressed ejection fraction about 35% to 39%. There is akinesis of the apex and anterolateral wall, and there was a proximal 95% stenosis thrombosed, long and irregular. The right coronary and circumflex were free of any significant disease. After the intervention, there was no stenosis. There was KAREN grade 2.5 distal flow. During the procedure, there had been KAREN 1 flow, treated with intracoronary nitroglycerin. - Problems (1) NSTEMI (non-ST elevated myocardial infarction) Onset Date: 04/24/18 Current Visit: Yes Status: Acute (2) Hypertension Onset Date: 04/24/18 Current Visit: Yes Status: Acute Qualifiers: Hypertension type: essential hypertension Qualified Code(s): I10 - Essential (primary) hypertension (3) Hyperlipidemia Onset Date: 04/24/18 Current Visit: Yes Status: Chronic Qualifiers: Hyperlipidemia type: unspecified Qualified Code(s): E78.5 - Hyperlipidemia , unspecified (4) Chest pain Onset Date: 04/24/18 Current Visit: Yes Status: Acute Qualifiers: Chest pain type: chest pain due to myocardial ischemia Ischemic chest pain type: unstable angina pectoris Qualified Code(s): I20.0 - Unstable angina (5) GERD (gastroesophageal reflux disease) Onset Date: 04/24/18 Current Visit: Yes Status: Suspected Qualifiers: Esophagitis presence: esophagitis presence not specified Qualified Code(s) : K21.9 - Gastro-esophageal reflux disease without esophagitis (6) CHF (congestive heart failure) Current Visit: Yes Status: Acute Qualifiers: Heart failure type: systolic Heart failure chronicity: chronic Qualified Code(s): I50.22 - Chronic systolic (congestive) heart failure Brief History of Present Illness: 57-year-old male presented emergency room with chest pain. Patient reported chest pain to the substernal region and to the left side. He reported the pain, more of a pressure like sensation. He thought that this was more indigestion. Chest pain started about 5:00 a.m. when he woke up. Patient reports a history of chest pain in the past. He has had multiple stress tests done in the past which were unremarkable. His last stress test was done about 1 -1/2 years ago at [facility]. Patient denied any fever, chills, nausea, vomiting , dizziness or palpitations. Patient came to ER for further evaluation. He did take ASA prior to coming to the ER. In the ER he was evaluated. Initial blood pressure was slightly elevated. Initial cardiac enzymes were within normal range. A 2nd set showed a troponin elevated at 0.68. Elevated CKMB was also elevated. No EKG changes of ST elevation was noted. Patient was admitted for further treatment. In the ER when I evaluated the patient he was without any significant chest pain. Patient reports a history of elevated blood pressure in the past but related this more to white coat syndrome. Patient also reports of history of hyperlipidemia. He does not take any medication at this time except aspirin. Patient denies any alcohol or tobacco use. There is a family history of cardiac disease. Hospital Course: Patient presented with chest pain. Patient found to have non ST wave CO. Patient was evaluated by cardiology. Echocardiogram showed ejection fraction of 54%. Mild tricuspid regurgitation noted. Heart catheterization was recommended. Heart catheterization showed stenosis to the proximal left anterior descending artery. 95% stenosis noted. Stent was placed. Heart catheterization showed depressed ejection fraction about 35-39%. Patient may have underlying systolic CHF. No edema or shortness of breath was noted No indication for diuretic therapy was needed at this time. Patient tolerated procedure well. At discharge patient will continue with aspirin 81 mg daily, Plavix 75 mg 1 pill daily. Patient also has been started on Lipitor 80 mg at night and metoprolol 12.5 mg 1 pill twice daily. Recommendation is for the patient follow up with cardiology in 1-2 weeks to monitor his progress. Patient will continue with a 1500 cc per day fluid restriction and low-salt diet. Lifestyle modification education has been provided. Patient has hypertension. As stated above the patient continue with metoprolol 12.5 mg 1 pill twice daily. Recommendation is to maintain blood pressures less 150/80. He may have to hold his medication if blood pressure is less than 120 systolic. Further adjustment can be done by his cardiology or his PCP. Patient has hyperlipidemia. Patient will continue with Lipitor 80 mg daily. Patient may have underlying GERD. Patient will continue with Protonix 40 mg 1 pill once daily. Vital Signs/Physical Exam: Temp Pulse Resp BP Pulse Ox 97.7 F 66 20 111/65 95 04/25/18 08:00 04/25/18 08:00 04/25/18 08:00 04/25/18 08:00 04/25/18 08:00 General: Alert, In no apparent distress, Oriented x3, Cooperative HEENT: Atraumatic Neck: Supple Respiratory: Clear to auscultation bilaterally, Normal air movement Cardiovascular: Normal pulses, Regular rate/rhythm Gastrointestinal: Normal bowel sounds, Soft and benign, Non-distended, No tenderness, No masses, No rebound, No guarding Musculoskeletal: No erythema, No tenderness, No warmth Integumentary: No tenderness/swelling, No erythema, No warmth, No cyanosis Neurological: Normal speech, Normal strength at 5/5 x4 extr, Normal tone, Normal affect Laboratory Data at Discharge: WBC 10.5 K/uL (4.3-10.9) 04/25/18 05:28 Hgb 14.4 g/dL (13.6-17.9) 04/25/18 05:28 Hct 43.5 % (39.6-49.0) 04/25/18 05:28 Plt Count 243 K/uL (152-406) 04/25/18 05:28 PT 11.0 SECONDS (9.5-12.5) 04/21/18 06:05 INR 0.93 04/21/18 06:05 Sodium 142 mmol/L (136-145) 04/25/18 05:28 Potassium 4.4 mmol/L (3.5-5.1) 04/25/18 05:28 BUN 7 mg/dL (7-18) 04/25/18 05:28 Creatinine 0.90 mg/dL (0.55-1.3) 04/25/18 05:28 Glucose 98 mg/dL (74-106) 04/25/18 05:28 Magnesium 2.2 mg/dL (1.8-2.4) 04/25/18 05:28 Total Bilirubin 1.0 mg/dL (0.2-1.0) 04/21/18 06:05 AST 19 U/L (15-37) 04/21/18 06:05 ALT 36 U/L (12-78) 04/21/18 06:05 Alkaline Phosphatase 98 U/L (45-117) 04/21/18 06:05 Troponin I 31.20 ng/mL (0.0-0.045) H* 04/22/18 02:14 Triglycerides 217 mg/dL (<150) H 04/21/18 09:20 Cholesterol 199 mg/dL (<200) 04/21/18 09:20 HDL Cholesterol 46 mg/dL (40-60) 04/21/18 09:20 Cholesterol/HDL Ratio 4.33 04/21/18 09:20 Home Medications: Aspirin [Low Dose Aspirin EC] 1 tab PO DAILY 11/21/14 Atorvastatin Calcium [Lipitor] 80 mg PO BEDTIME #30 tab 04/25/18 Clopidogrel Bisulfate [Plavix*] 75 mg PO DAILY #30 tablet 04/25/18 Metoprolol Tartrate [Lopressor*] 12.5 mg PO BID 6AM 6PM #60 tab 04/25/18 Pantoprazole [Protonix Tab*] 40 mg PO DAILYAC #30 tab 04/25/18 New Medications: Atorvastatin Calcium [Lipitor] 80 mg PO BEDTIME #30 tab Clopidogrel Bisulfate [Plavix*] 75 mg PO DAILY #30 tablet Metoprolol Tartrate [Lopressor*] 12.5 mg PO BID 6AM 6PM #60 tab Pantoprazole [Protonix Tab*] 40 mg PO DAILYAC #30 tab Patient Discharge Instructions: 1. Patient will need a follow up with PCP in 1 week to follow up this hospitalization. 2. Patient presented with chest pain. Patient found to have non ST wave CO. Patient was evaluated by cardiology. Echocardiogram showed ejection fraction of 54%. Heart catheterization was recommended. Heart catheterization showed stenosis to the proximal left anterior descending artery. 95% stenosis noted. Stent was placed. Heart catheterization showed depressed ejection fraction about 35-39%. Patient may have underlying systolic CHF. No indication for diuretic therapy was needed at this time. Patient continue with a 1500 cc per day fluid restriction and low- salt diet. At discharge patient will continue with aspirin 81 mg daily, Plavix 75 mg 1 pill daily. Patient also has been started on Lipitor 80 mg at night and metoprolol 12.5 mg 1 pill twice daily. This will be continued at discharge. Recommendation is for the patient follow up with cardiology in 1-2 weeks to monitor his progress. Lifestyle modification education has been provided. 3. Patient has hypertension. As stated above the patient will continue with metoprolol 12.5 mg 1 pill twice daily. Recommendation is to maintain blood pressures less 150/80. He may have to hold his medication if blood pressure is less than 120 systolic. Further adjustment can be done by his cardiology or his PCP. 4. Patient has hyperlipidemia. Patient will continue with Lipitor 80 mg daily. 5. Patient may have underlying GERD. Patient will continue with Protonix 40 mg 1 pill once daily. Diet: AHA Activity: Ad adam Time spent managing pt's care (in minutes): 55
[2018-04-25 09:46] VITALS: O2SAT 96
--- NOTE | 2018-04-25 11:06 | PN ---
The patient was admitted on 04/21/2018 with a non-ST elevation myocardial infarction. On 04/24/2018, he had a heart catheterization with an LAD stent via the right wrist approach by Dr. Ochoa. The catracho altamirano tolerated the procedure well. He had no complications overnight. His right wrist site is inta ct. He has no telemetry issue. No chest pain. He will be going home today on metoprolol, Lipitor, aspirin, and Plavix, and he will see us in the office in 2 weeks. ROLANDA/JUDIT Voice ID: [id number] Report ID: [id number]
== END 2018-04-25 11:47 | disposition home or self-care (01) | DRG 247 ==
LOC: ER 05:19 → ERHOLD 10:23 → 4TH 11:38
PROVIDERS: ADMIT Family Medicine; ATTEND Family Medicine
PROC: 027034Z Dilation of Coronary Artery, One Artery with Drug-eluting Intraluminal Device, Percutaneous Approach (ICD-10-PCS; principal; 2018-04-24)
PROC: 4A023N7 Measurement of Cardiac Sampling and Pressure, Left Heart, Percutaneous Approach (ICD-10-PCS; 2018-04-24)
PROC: B2111ZZ Fluoroscopy of Multiple Coronary Arteries using Low Osmolar Contrast (ICD-10-PCS; 2018-04-24)
PROC: B2151ZZ Fluoroscopy of Left Heart using Low Osmolar Contrast (ICD-10-PCS; 2018-04-24)
DX: I21.4 Non-ST elevation (NSTEMI) myocardial infarction (principal); I50.22 Chronic systolic (congestive) heart failure; I25.10 Atherosclerotic heart disease of native coronary artery without angina pectoris; I11.0 Hypertensive heart disease with heart failure; K21.9 Gastro-esophageal reflux disease without esophagitis; I07.1 Rheumatic tricuspid insufficiency; E78.5 Hyperlipidemia, unspecified; Z88.5 Allergy status to narcotic agent; F41.9 Anxiety disorder, unspecified
CPT/HCPCS: 36415; 71045; 80048; 80061; 80076; 81003; 82550; 82553; 83735; 84484; 85025; 85027; 85347; 85379; 85610; 92928; 93005; 93306; 93458; 99285; C1725; C1893; J0583; J1644; J1650; J2250; J3010; J7030

== ENCOUNTER 2018-04-27 13:54 | Observation (INO) | payer SELFPAY ==
--- OUTSIDE RECORDS SUMMARY | 2018-04-27 13:56 | XMS REPORT | Clinical Summary ---
:1960 Author Organization [facility] Address [address] [place] [id number] Care Team Providers Name Role Phone Asked, [...] INFLUENZA VACCINE 05/31/2018 Results Not on fileafter 04/26/2017
--- NOTE | 2018-04-27 14:23 | RAD REPORT ---
EXAM DESCRIPTION: Cinda Single View04/27/2018 2:17 pm CLINICAL HISTORY: Abnormal EKG COMPARISON: April 21, 2018 FINDINGS: The lungs appear clear of acute infiltrate. The heart is normal size IMPRESSION: No acute abnormalities displayed
[2018-04-27 14:29] LABS: Absolute Lymphocytes (CBC) 1.5 K/uL (0.7-4.9); Absolute Monocytes 0.7 K/uL (0.1-1.3); Absolute Neutrophil 7.6 K/uL (1.8-8.0); Basophils % 0.5 % (0-1.3); Eosinophils % 0.9 % (0-4.4); Hematocrit 47.3 % (39.6-49.0); Lymphocytes % 15.1 % (15.3-44.8); MCH 29.7 pg (27.0-35.0); MCV 86.8 fL (80-100); Monocytes % 7.3 % (3.3-12.3); RBC Red Blood Cell Count 5.45 M/uL (4.33-5.43)
[2018-04-27 14:32] LABS: Protime INR 1.1
[2018-04-27 14:44] LABS: Albumin 4.2 g/dL (3.4-5.0); Bilirubin Direct 0.4 mg/dL (0-0.2); Bilirubin Total 1.7 mg/dL (0.2-1.0); Magnesium 2.3 mg/dL (1.8-2.4); Potassium 4.1 mmol/L (3.5-5.1); Protein, Total 7.9 g/dL (6.4-8.2)
--- NOTE | 2018-04-27 15:20 | ER ---
Nurse's Notes [facility] Name: Panchito Ramirez Age: 57 yrs Sex: Male : 1960 Arrival Date: 04/27/2018 Time: 13:57 Bed 5 Private MD: Diagnosis: Chest pain, unspecified Presentation: 04/27 14:00 Presenting complaint: Patient states: had recent heart cath with stent placement iw earlier this week, had follow up appt with Dr. Ochoa today, pt c/o left arm pain, mild SOB, and felt sweaty last night after taking his metoprolol, was sent to ER for further evaluation, pt denies chest pain. Transition of care: patient was not received from another setting of care. Onset of symptoms was April 26, 2018. Risk Assessment: Do you want to hurt yourself or someone else? Patient reports no desire to harm self or others. Initial Sepsis Screen: Does the patient meet any 2 criteria? No. Patient's initial sepsis screen is negative. Does the patient have a suspected source of infection? No. Patient's initial sepsis screen is negative. Care prior to arrival: None. 14:00 Method Of Arrival: Wheelchair iw 14:00 Acuity: ION 2 iw Historical: - Allergies: 14:04 NKA; iw - Home Meds: 14:09 atorvastatin 80 mg oral tab 1 tab once daily [Active]; clopidogrel 75 mg oral tab 1 tab iw once daily [Active]; Metoprolol Tartrate 12.5 mg Oral 2 times per day [Active]; pantoprazole 40 mg oral TbEC 1 tab once daily [Active]; - PMHx: 14:04 Anxiety; iw 14:09 NSTEMI; iw - PSHx: 14:04 Heart stents; iw - Ebola Screening: : No symptoms or risks identified at this time. Screenin:05 Abuse screen: Denies threats or abuse. Nutritional screening: No deficits noted. aa5 Tuberculosis screening: No symptoms or risk factors identified. Fall Risk None identified. Assessment: 14:05 General: Appears comfortable, Behavior is calm, cooperative. Pain: Complains of pain in aa5 left lateral anterior chest and left arm Pain does not radiate. Pain currently is 0 out of 10 on a pain scale. Quality of pain is described as aching, Pain began 2-3 days ago. Is intermittent, Alleviated by repositioning. Neuro: Level of Consciousness is awake, alert, obeys commands, Oriented to person, place, time, situation. Cardiovascular: Heart tones S1 S2 present Rhythm is regular. Respiratory: Airway is patent Respiratory effort is even, unlabored, Respiratory pattern is regular, symmetrical, Breath sounds are clear bilaterally. GI: Abdomen is round non-distended, Bowel sounds present X 4 quads. Abd is soft and non tender X 4 quads. : No signs and/or symptoms were reported regarding the genitourinary system. EENT: No signs and/or symptoms were reported regarding the EENT system. Derm: Skin is pink, warm \\T\\ dry. Bruising that is dark purple, green, on right arm and left arm Pt states "the bruising is from all the blood draw sticks when I was in the hospital" . Musculoskeletal: Range of motion: intact in all extremities. 15:00 Reassessment: Patient and/or family updated on plan of care and expected duration. Pain aa5 level reassessed. Patient is alert, oriented x 3, equal unlabored respirations, skin warm/dry/pink. Patient denies pain at this time. 16:00 Reassessment: Patient and/or family updated on plan of care and expected duration. Pain aa5 level reassessed. Patient is alert, oriented x 3, equal unlabored respirations, skin warm/dry/pink. Patient denies pain at this time. 17:00 Reassessment: Patient and/or family updated on plan of care and expected duration. Pain aa5 level reassessed. Patient is alert, oriented x 3, equal unlabored respirations, skin warm/dry/pink. Patient denies pain at this time. Awaiting room assingment. 18:00 Reassessment: Patient is alert, oriented x 3, equal unlabored respirations, skin aa5 warm/dry/pink. Patient denies pain at this time. Pt notified of wait time to be transported to admitting floor, pt verbalized understanding . Vital Signs: 14:10 BP 139 / 98; Pulse 80; Resp 16; Temp 98.2; Pulse Ox 100% on R/A; iw 15:00 BP 135 / 91; Pulse 80; Resp 16 S; Pulse Ox 99% on R/A; aa5 16:00 BP 124 / 80; Pulse 79; Resp 18 S; Pulse Ox 98% on R/A; Pain 0/10; aa5 18:00 BP 138 / 84; Pulse 74; Resp 16 S; Temp 98.0(O); Pulse Ox 99% on R/A; Pain 0/10; aa5 ED Course: 13:57 Patient arrived in ED. iw 13:57 Julio Cesar Sellers PA is PHCP. jr8 13:57 Tommie Villareal MD is Attending Physician. jr8 14:04 Triage completed. iw 14:05 Arm band placed on. aa5 14:05 Patient has correct armband on for positive identification. Placed in gown. Bed in low aa5 position. Call light in reach. Side rails up X2. technology engineer on. Pulse ox on. NIBP on. 14:10 Initial lab(s) drawn, by me, sent to lab. Inserted saline lock: 20 gauge in left aa5 forearm, using aseptic technique. Blood collected. 14:13 Bria Lyons, RN is Primary Nurse. aa5 14:15 X-ray completed. Portable x-ray completed in exam room. Patient tolerated procedure jb2 well. 14:17 XRAY Chest (1 view) In Process Unspecified. EDMS 14:34 No provider procedures requiring assistance completed. aa5 15:20 Issac Escobar MD is Hospitalizing Provider. jr8 18:27 Patient admitted, IV remains in place. aa5 Administered Medications: No medications were administered Outcome: 15:20 Decision to Hospitalize by Provider. jr8 18:25 Admitted to Tele accompanied by tech, via wheelchair, with chart, Report called to aa5 DEIDRE Worthy 18:25 Condition: stable 18:25 Instructed on the need for admit, Demonstrated understanding of instructions. 18:27 Patient left the ED. iw Signatures: Dispatcher [employer] EDMS Salvatore Rea jb2 Janki Lomeli RN RN iw Bria Lyons RN RN aa5 Julio Cesar Sellers PA PA jr8 Corrections: (The following items were deleted from the chart) 14:36 14:05 Derm: Skin is pink, warm \\T\\ dry. aa5 aa5
--- NOTE | 2018-04-27 15:20 | EDPHYS ---
Physician Documentation [facility] Name: Panchito Ramirez Age: 57 yrs Sex: Male : 1960 Arrival Date: 04/27/2018 Time: 13:57 Bed 5 Private MD: ED Physician Tommie Villareal HPI: 04/27 15:12 This 57 yrs old Male presents to ER via Wheelchair with complaints of chest jr8 pain,Arm Pain, Shortness Of Breath. 15:12 The patient or guardian reports chest pain that is located primarily in the substernal jr8 area. Onset: gradually, 2 day(s) ago. The pain radiates to the left arm. Associated signs and symptoms: Pertinent positives: shortness of breath. The chest pain is described as aching. Duration: The patient or guardian reports multiple episodes. Modifying factors: The symptoms are alleviated by nothing. the symptoms are aggravated by nothing. Severity of pain: At its worst the pain was mild in the emergency department the pain is unchanged. The patient has experienced a previous episode. The patient has been recently seen by a physician:. Patient originally came to ED on Tuesday of last week and was admitted for NSTEMI. Was cathed this past Tuesday and had 95% proximal LAD occlusion. Was sent home in stable condition. Over the past day or so had mild shortness of breath and arm aching along with chest aching sensation which he had the first time. Saw Dr. Ochoa and was brought over to ED today for enzyme evaluation and admission or stress test and echo . Historical: - Allergies: 14:04 NKA; iw - Home Meds: 14:09 atorvastatin 80 mg oral tab 1 tab once daily [Active]; clopidogrel 75 mg oral tab 1 tab iw once daily [Active]; Metoprolol Tartrate 12.5 mg Oral 2 times per day [Active]; pantoprazole 40 mg oral TbEC 1 tab once daily [Active]; - PMHx: 14:04 Anxiety; iw 14:09 NSTEMI; iw - PSHx: 14:04 Heart stents; iw - Ebola Screening: : No symptoms or risks identified at this time. ROS: 15:12 Eyes: Negative for injury, pain, redness, and discharge, ENT: Negative for injury, jr8 pain, and discharge, Neck: Negative for injury, pain, and swelling, Abdomen/GI: Negative for abdominal pain, nausea, vomiting, diarrhea, and constipation, Back: Negative for injury and pain, MS/Extremity: Negative for injury and deformity, Skin: Negative for injury, rash, and discoloration, Neuro: Negative for headache, weakness, numbness, tingling, and seizure. 15:12 Cardiovascular: Positive for chest pain, Negative for edema, orthopnea, palpitations, paroxysmal nocturnal dyspnea. 15:12 Respiratory: Positive for shortness of breath. Exam: 15:12 Eyes: Pupils equal round and reactive to light, extra-ocular motions intact. Lids and jr8 lashes normal. Conjunctiva and sclera are non-icteric and not injected. Cornea within normal limits. Periorbital areas with no swelling, redness, or edema. ENT: Nares patent. No nasal discharge, no septal abnormalities noted. Tympanic membranes are normal and external auditory canals are clear. Oropharynx with no redness, swelling, or masses, exudates, or evidence of obstruction, uvula midline. Mucous membranes moist. Neck: Trachea midline, no thyromegaly or masses palpated, and no cervical lymphadenopathy. Supple, full range of motion without nuchal rigidity, or vertebral point tenderness. No Meningismus. Cardiovascular: Regular rate and rhythm with a normal S1 and S2. No gallops, murmurs, or rubs. Normal PMI, no JVD. No pulse deficits. Respiratory: Lungs have equal breath sounds bilaterally, clear to auscultation and percussion. No rales, rhonchi or wheezes noted. No increased work of breathing, no retractions or nasal flaring. Abdomen/GI: Soft, non-tender, with normal bowel sounds. No distension or tympany. No guarding or rebound. No evidence of tenderness throughout. Back: No spinal tenderness. No costovertebral tenderness. Full range of motion. Skin: Warm, dry with normal turgor. Normal color with no rashes, no lesions, and no evidence of cellulitis. MS/ Extremity: Pulses equal, no cyanosis. Neurovascular intact. Full, normal range of motion. Neuro: Awake and alert, GCS 15, oriented to person, place, time, and situation. Cranial nerves II-XII grossly intact. Motor strength 5/5 in all extremities. Sensory grossly intact. Cerebellar exam normal. Normal gait. Vital Signs: 14:10 BP 139 / 98; Pulse 80; Resp 16; Temp 98.2; Pulse Ox 100% on R/A; iw 15:00 BP 135 / 91; Pulse 80; Resp 16 S; Pulse Ox 99% on R/A; aa5 16:00 BP 124 / 80; Pulse 79; Resp 18 S; Pulse Ox 98% on R/A; Pain 0/10; aa5 18:00 BP 138 / 84; Pulse 74; Resp 16 S; Temp 98.0(O); Pulse Ox 99% on R/A; Pain 0/10; aa5 MDM: 13:57 Patient medically screened. 8 15:12 Data reviewed: vital signs, nurses notes, lab test result(s), EKG, radiologic studies, jr8 plain films, and as a result, I will admit patient. Data interpreted: Pulse oximetry: on room air is 100 %. Interpretation: normal. Counseling: I had a detailed discussion with the patient and/or guardian regarding: the historical points, exam findings, and any diagnostic results supporting the discharge/admit diagnosis, lab results, radiology results, the need for further work-up and treatment in the hospital. Physician consultation: Issac Escobar MD was called at 15:19, was contacted at 15:19, regarding admission, to the telemetry unit. consult, patient's condition, and will see patient. 04/27 13:58 Order name: Basic Metabolic Panel; Complete Time: 14:04/27 13:58 Order name: CBC with Diff; Complete Time: 14:04/27 13:58 Order name: LFT's; Complete Time: 14:04/27 13:58 Order name: Magnesium; Complete Time: 14:55 04/27 13:58 Order name: NT PRO-BNP; Complete Time: 14:55 04/27 13:58 Order name: PT-INR; Complete Time: 14:55 04/27 13:58 Order name: Ptt, Activated; Complete Time: 14:55 04/27 13:58 Order name: Troponin (emerg Dept Use Only); Complete Time: 14:55 04/27 13:58 Order name: XRAY Chest (1 view); Complete Time: 14:24 04/27 13:58 Order name: EKG; Complete Time: 13:58 [facility] 04/27 15:12 Order name: Echo w/ Doppler [facility] 04/27 15:25 Order name: CONS Physician Consult [facility] 04/27 16:14 Order name: Urine Dipstick--Ancillary (enter results) ag 04/27 16:36 Order name: Urine Dipstick-Ancillary; Complete Time: 16:48 [facility] 04/27 13:58 Order name: Cardiac monitoring; Complete Time: 14:14 [facility] 04/27 13:58 Order name: EKG - Nurse/Tech; Complete Time: 14:14 [facility] 04/27 13:58 Order name: IV Saline Lock; Complete Time: 14:14 [facility] 04/27 13:58 Order name: Labs collected and sent; Complete Time: 14:14 [facility] 04/27 13:58 Order name: O2 Per Protocol; Complete Time: 14:13 [facility] 04/27 13:58 Order name: O2 Sat Monitoring; Complete Time: 14:13 [facility] 04/27 13:58 Order name: Urine Dipstick-Ancillary (obtain specimen); Complete Time: 16:10 [facility] Administered Medications: No medications were administered Disposition: 04/27/18 15:20 Hospitalization ordered by Issac Escobar for Observation. Preliminary diagnosis is Chest pain, unspecified. - Bed requested for Telemetry/MedSurg (observation). - Status is Observation. iw - Condition is Stable. - Problem is new. - Symptoms have improved. UTI on Admission? No Addendum: 05/04/2018 11:27 Co-signature as Attending Physician, Tommie Villareal MD I agree with the assessment and k dr plan of care. Signatures: Dispatcher [employer] [facility] Tommie Villareal MD MD [facility] Janki Lomeli, RN RN iw Bria Lyons, RN RN aa5 Julio Cesar Sellers PA PA jr8 Karime Da Silva Corrections: (The following items were deleted from the chart) 04/27 17:35 15:20 Hospitalization Ordered by Issac Escobar MD for Observation. Preliminary diagnosis ag is Chest pain, unspecified. Bed requested for Telemetry/MedSurg (observation). Status is Observation. Condition is Stable. Problem is new. Symptoms have improved. UTI on Admission? No. jr8 18:27 17:35 04/27/2018 15:20 Hospitalization Ordered by Issac Escobar MD for Observation. iw Preliminary diagnosis is Chest pain, unspecified. Bed requested for Telemetry/MedSurg (observation). Status is Observation. Condition is Stable. Problem is new. Symptoms have improved. UTI on Admission? No. ag
[2018-04-27] MEDS ORDERED: MORPHINE 4 MG/ML SYR IV PRN (15:38)
[2018-04-27] MEDS ORDERED: ACETAMINOPHEN 500 MG TAB PO PRN (15:38)
[2018-04-27] MEDS ORDERED: NITROGLYCERIN 0.4 MG/TAB SL PRN (15:57)
[2018-04-27] MEDS: METOPROLOL TAR 25 MG TAB PO SCH ×2 (16:00→21:00)
[2018-04-27] MEDS ORDERED: ENOXAPARIN 40 MG/0.4 ML SQ SCH (16:00)
[2018-04-27 16:36] LABS: Urine Blood 1+ (NEG); Urine Glucose NEGATIVE (NEG); Urine Protein NEGATIVE (NEG)
[2018-04-27 18:42] VITALS: BMI 25.9
[2018-04-27] MEDS ORDERED: ATORVASTATIN 80 MG TAB PO SCH (21:00)
[2018-04-27] MEDS ORDERED: ENOXAPARIN 100 MG/ML SYR SQ SCH (21:45)
[2018-04-27] MEDS ORDERED: ENOXAPARIN 40 MG/0.4 ML SQ ONE (21:49)
--- NOTE | 2018-04-28 02:41 | HP ---
Date of Admission: 04/27/2018 Chief Complaint: Chest pain and left arm pain. Case Worker: Dr. Ochoa, Cardiology. Primary Care Physician: Dr. Buenrostro. History Of Present Illness: The patient is a 57-year-old male, who was recently discharged from the hospital on 04/25/2018, had come in with chest pain, had NSTEMI and received a stent in the LAD. The patient was doing well since his discharge. He was compliant with his medications including aspirin and Plavix; however, he still continued to have some achiness on his chest, which was substernal and in his left arm, which woke him up this morning. He also developed some diaphoresis and some nausea . The patient therefore became concerned and came into Dr. Ochoa' office for further evaluation. E KG was done and was different than his initial EKG, therefore he was sent to the ER for further evalu ation. Upon arrival, his vital signs showed normal blood pressure. He was afebrile. His workup rev ealed a troponin of 1.71, which is trending down from initial troponin level, which was as high as 31 at previous visit. The patient was then referred for admission. When seen in the ER, he was awake, alert, oriented x3, in some mild distress. Past Medical History: Hypertension, hyperlipidemia, gastroesophageal reflux disease, coronary artery disease status post stent, recently. Past Surgical History: The patient did have cardiac stent placement. Allergies: TO CODEINE, WHICH CAUSES RASH. Medications: Were reviewed. Social History: The patient denies any tobacco use, alcohol use, or illicit drug use. The patient i s currently employed and lives at home, independent in his activities of daily living. Family History: Father had CA at age 65, stroke. Review of Systems: An 11-point system reviewed, negative except as per HPI. Physical Examination: Vital Signs: Blood pressure 139/98, pulse 80, respirations 16, temperature 98.2, O2 100% on room air . General: Awake, alert, oriented x3, in some mild distress due to chest discomfort. HEENT: Normocephalic, atraumatic. PERRLA. EOMI. Moist mucous membranes. Oropharynx is clear. No rmal dentition. Conjunctivae anicteric. Neck: Supple. No JVD. Trachea midline. CV: S1, S2. Regular rate and rhythm. Peripheral pulses present. No murmurs. Gastrointestinal: Abdomen is soft, nontender, nondistended. Positive bowel sounds. No guarding or rigidity. Respiratory: Clear to auscultation bilaterally. No wheezing. No stridor. No use of accessory musc les. Extremities: No clubbing, cyanosis or edema. No calf tenderness. Neurologic: Cranial nerves 2 through 12 intact grossly. No focal neurological deficit. Speech is n ormal. Strength is 5/5 bilateral upper and lower extremities. Skin: No rashes. Normal skin turgor. Psych: Mood is okay. Affect is full. Insight and judgment are good. Laboratory Data: Sodium 139, potassium 4.1, chloride 106, CO2 29, BUN 12, creatinine 1, glucose 102, calcium 9.2, magnesium 2.3, total bilirubin 1.7, AST 51, ALT 89, alkaline phosphatase 104, troponin 1.71. BNP 690, albumin 4.2, INR 1.1. WBC 10, H and H 16.2, 47.3, platelets 284. UA is pending. Chest x-ray shows no acute abnormalities. Assessment: 1.Chest pain, unstable angina. There is a possibility of restenosis of the stent. Dr. Ochoa has b carleen consulted. Troponin level is elevated at 1.7, however, trending down from his previous admission . We will continue his aspirin, Plavix, metoprolol and statin. We will recheck troponin level q.8 h ours x2. EKG p.r.n. Nitroglycerin and morphine for pain. Tentative plan is for stress test in a.m. We will place on cardiac telemetry. 2.Essential hypertension. Resume home medications. 3.Hyperlipidemia. We will continue statin. 4.Gastroesophageal reflux disease. Continue PPI. 5.Gastrointestinal, deep venous thrombosis prophylaxis with PPI and Lovenox. Plan: Admit the patient to Med-Surg. Place as observation. /JUDIT Voice ID: [id number]
[2018-04-28 05:21] VITALS: O2SAT 99
[2018-04-28 06:24] LABS: Absolute Lymphocytes (CBC) 2.4 K/uL (0.7-4.9); Absolute Monocytes 0.7 K/uL (0.1-1.3); Absolute Neutrophil 5.7 K/uL (1.8-8.0); Basophils % 0.7 % (0-1.3); Eosinophils % 1.8 % (0-4.4); Hematocrit 47.6 % (39.6-49.0); Lymphocytes % 26.7 % (15.3-44.8); MCV 87.4 fL (80-100); Monocytes % 7.5 % (3.3-12.3); RBC Red Blood Cell Count 5.44 M/uL (4.33-5.43)
--- NOTE | 2018-04-28 06:26 | EKG ---
Test Date: 2018-04-27 Test Time: 13:57:28 Ribbon Hand: YARI MEASUREMENT RESULTS: Intervals: Rate: 81 MN: 130 QRSD: 84 QT: 392 QTc: 455 Crivitz: P: 55 MN: 130 QRS: 65 T: 99 INTERPRETIVE STATEMENTS: Normal sinus rhythm T wave abnormality, consider anterolateral ischemia Abnormal ECG Compared to ECG 04/21/2018 09:00:03 T-wave abnormality now present Possible ischemia now present ST (T wave) deviation no longer present Electronically Signed On 04-28-18 06:25:24 CDT by Elias Ochoa
[2018-04-28 06:46] LABS: Potassium 4.4 mmol/L (3.5-5.1)
--- NOTE | 2018-04-28 07:37 | ECHO ---
HEIGHT: 5 ft 9 in WEIGHT: 176 lb 0 oz DATE OF STUDY: 04/27/[address]: Aftab Sellers 2-DIMENSIONAL: YES M.MODE: YES DOPPLER: YES COLOR FLOW: YES TDS: NO PORTABLE: NO DEFINITY: NO BUBBLE STUDY: NO DIAGNOSIS: ELEVATED TROPONIN CARDIAC HISTORY: CATHERIZATION: YES SURGERY: NO PROSTHETIC VALVE: NO PACEMAKER: NO MEASUREMENTS (cm) DIASTOLIC (NORMALS) SYSTOLIC (NORMALS) IVSd 1.1 (0.6-1.2) LA Diam 3.3 (1.9-4.0) LVEF 63% LVIDd 3.6 (3.5-5.7) LVIDs 2.4 (2.0-3.5) %FS 33% LVPWd 1.1 (0.6-1.2) Ao Diam 3.7 (2.0-3.7) 2 DIMENSIONAL ASSESSMENT: RIGHT ATRIUM: NORMAL LEFT ATRIUM: NORMAL RIGHT VENTRICLE: NORMAL LEFT VENTRICLE: NORMAL TRICUSPID VALVE: NORMAL MITRAL VALVE: NORMAL PULMONIC VALVE: NORMAL AORTIC VALVE: NORMAL PERICARDIAL EFFUSION: NONE AORTIC ROOT: NORMAL LEFT VENTRICULAR WALL MOTION: MILD APICAL HYPOKINESIS. DOPPLER/COLOR FLOW: NORMAL. COMMENTS: NORMAL LEFT VENTRICULAR EJECTION FRACTION. MILD APICAL HYPOKINESIS. TECHNOLOGIST: NICOLASA ARANGO
[2018-04-28] MEDS ORDERED: ASPIRIN EC 81 MG TAB PO SCH (09:00)
[2018-04-28] MEDS ORDERED: CLOPIDOGREL 75 MG TABLET PO SCH (09:00)
[2018-04-28] MEDS ORDERED: ENOXAPARIN 80 MG/0.8 ML SQ SCH (09:00)
[2018-04-28] MEDS ORDERED: REGADENOSON 0.4 MG/5 ML SYR IV ONE (09:25)
[2018-04-28] MEDS: METOPROLOL TAR 25 MG TAB PO SCH (09:37)
--- NOTE | 2018-04-28 12:46 | RAD REPORT ---
EXAM DESCRIPTION: NM - Rest Stress Cardiac Imaging - 04/28/2018 12:40 pm CLINICAL HISTORY: CHEST PAIN Chest pain. COMPARISON: No comparisons TECHNIQUE: The patient was administered approximately 10mCi of Tc 99m Sestamibi prior to resting SPE CT imaging of the heart. The patient was then administered approximately 30 mCi of Tc 99m Sestamibi f ollowing exercise or pharmacologic stress. Multiplanar SPECT images were reviewed. FINDINGS: No stress induced ischemic defect is seen to suggest stress induced ischemia. Areas of fix ed defects seen in the LV apex as well as the anterior wall most compatible with scarring related to previous infarct. The end diastolic volume is 79 ml, the end systolic volume is 40 ml, and the ejection fraction is 49 %. IMPRESSION: No stress induced ischemia. Areas of scarring are present involving the LV apex and anterior wall.
[2018-04-28 12:59] VITALS: BP 120/80; TEMP 98.6
--- NOTE | 2018-04-28 13:00 | CON ---
History Of Present Illness: Mr. Ramirez came to my office yesterday. He had atypical chest pain and EKG consistent with a recent CT, and I had him come to the ER. He has been here overnight. Mr. Lisseth jnekins last week had a large anterior CT. There was a very large anterolateral, anterior apical wall mot ion abnormality. He had a stent on Tuesday 4 days before his repeat hospitalization. An echocardiogr am done last night shows that wall motion abnormality has almost completely resolved. His troponins are abnormal, but they are low, markedly down from their levels last week. Over the weekend, he had a troponin level of 31.2. It came down to 16 by Tuesday and then was 1.79 yesterday. The patient is not having symptoms like when he came in. It is mostly a pinch or uncomfortable feeling under his le ft pectoral muscle. Outpatient Medications: Aspirin, Plavix, Lipitor, metoprolol, and Protonix. Physical Examination: Vital signs: He is 5 feet 9 inches, 176 pounds. General: Appears to be alert, oriented, pleasant, not in distress. Lungs: Clear. Heart exam: Within normal limits. Extremities: Normal. I think he needs to do a pharmacologic nuclear stress test. I think it will show an area of scar wit hout ischemia. If that looks okay, I will recommend he be discharged. I think looking at the echoca rdiogram and the way his troponins are heading, this is not a stent reocclusion. It is perhaps an at ypical pericarditis, maybe it is the fact that sensory nerves within the myocardium are waking up after being damaged by the heart attack, so I do not think this is an acute stent occlusion. ALETHA/JUDIT Voice ID: [id number] Report ID: [id number]
--- NOTE | 2018-04-28 13:12 | TREADPHA ---
DX: CHEST PAIN Date of Study: 04/28/2018 Ht: 5 9 Wt: 176 lb 0 oz Consulting Physician: IFEOMA MEDICATIONS: TYLENOL, ASPIRIN, LIPITOR, PLAVIX, LOVENOX, LOPRESSOR, NITROSTAT, PROTONIX HISTORY: 57 YEAR OLD MALE WITH COMPLAINTS OF CHEST PAIN. HISTORY OF HYPERTENSION, DYSLIPIDEMIA, CORNARY ARTERY DISEASE AND CARDIAC STENTS. PHYSICIAL EXAMINATION: RESTING B.P.: 125/95 RESTING H.R.: 71 RESTING EKG: ANTERIOR MYOCARDIAL INFARCTION PROTOCOL: LEXISCAN EXERCISE TIME: 3:30 B.P. AT PEAK STRESS: 108/70 IMPRESSION: LEXISCAN INJECTED, CARDIOLITE INJECTED PER PROTOCOL. SEE NUCLEAR MEDICINE REPORT. NO SUPRAVENTRICULAR TACHYCARDIA. NO VENTRICULAR TACHYCARDIA. NO PREMATURE VENTRICULAR COMPLEXES. DENIED CHEST PAIN. NON-DIAGNOSTIC ELECTROCARDIOGRAM WITH LEXISCAN STRESS.
[2018-04-29] MEDS ORDERED: PANTOPRAZOLE 40MG TABLET PO SCH (06:30)
--- NOTE | 2018-04-29 11:16 | DS ---
Date of Discharge: 04/28/2018 Production Metal Sprayer: Dr. Ochoa with Cardiology. Procedures: Cardiac stress test on 04/28/2018. No stress-induced ischemia. Admitting Diagnoses: 1.Chest pain, unstable angina. 2.Essential hypertension. 3.Hyperlipidemia. 4.Gastroesophageal reflux disease without esophagitis. Discharge Diagnoses: 1.Atypical angina. No restenosis of the stent. Cardiac stress test negative. 2.Essential hypertension, stable. 3.Hyperlipidemia. 4.Continue statin. 5.Gastroesophageal reflux disease. Continue PPI. Hospital Course: The patient is a 57-year-old male who recently had a stent placed on 04/26/2018, wa s found to have 95% blockage in the LAD. The patient did well from that hospitalization; however, si nce being discharged home, had some chest tightness and left arm achiness that he describes. The vikki ent went to the drapery and upholstery estimator's office, had some changes on EKG and was referred to the ER. The patie nt was found to have elevated troponin level of 1.71; however, is trending down from his previous tro ponin level on last admission a couple of days ago. The patient was then admitted to the hospital, s tarted on chest pain guidelines, has been on Lovenox. He was seen by Cardiology, Dr. Ochoa. Echoca rdiogram was repeated, which showed EF of 63%, which was significantly improved from his last echocar diogram showed some mild apical hypokinesis. Stress test was then ordered by Dr. Ochoa and did not show any stress-induced ischemia. There are areas of scarring along the LV apex in the anterior wall . The patient was likely felt to have possible pericarditis or pain post CA; however, was not in any acute distress. The patient was not felt to have stent reocclusion. Therefore, the patient was the n cleared for discharge from Cardiology standpoint. The patient then sent home in stable condition. Activity: As tolerated. No strenuous activity. Medications: As per medication reconciliation list. Condition: Fair. Followup: Follow up with primary care physician in 2 to 3 days. Followup with drapery and upholstery estimator, Dr. Mike toledo in 2 weeks. Return to ER for worsening condition. Diet: Heart healthy. Physical Examination: General: Awake, alert, oriented, no acute distress. CV: S1 and S2. No murmurs. Respiratory: Moving air bilaterally. Abdomen: Soft, nontender, nondistended. Positive bowel sounds. Extremities: No clubbing, cyanosis, edema. Neurologic: Nonfocal. SA/MODL Voice ID: [id number] Report ID: [id number]
== END 2018-04-28 16:10 | disposition home or self-care (01) ==
LOC: ER 13:54 → ERHOLD 15:24 → 2ND 18:24
PROVIDERS: ADMIT Family Medicine; ATTEND Family Medicine
DX: I25.118 Atherosclerotic heart disease of native coronary artery with other forms of angina pectoris (principal); Z95.5 Presence of coronary angioplasty implant and graft; I10 Essential (primary) hypertension; E78.5 Hyperlipidemia, unspecified; K21.9 Gastro-esophageal reflux disease without esophagitis; I25.2 Old myocardial infarction; Z79.02 Long term (current) use of antithrombotics/antiplatelets; Z79.82 Long term (current) use of aspirin
CPT/HCPCS: 36415; 71045; 78452; 80048; 80076; 81003; 83735; 83880; 84484; 85025; 85610; 85730; 93005; 93017; 93306; 94760; 99285; A9500; G0378; J1650; J2785

== ENCOUNTER 2020-02-13 12:43 | Emergency (ER) | payer SELFPAY ==
--- OUTSIDE RECORDS SUMMARY | 2020-02-13 12:56 | XMS REPORT ---
:1960 Author Organization [facility] t Address [address] [place] [address] Dr. Flowers [address] [place] [id number] Care Team Providers Name Role Phone Unavailable Unavailable Unavailable Problems This patient has no known problems. Allergies, Adverse Reactions, Alerts This patient has no known allergies or adverse reactions. Medications This patient has no known medications. Encounters Start End Encounter Admission Attending Care Care Encounter Date/Time Date/Time Type Type Clinicians Facility Department ID 2020-01-06 2020-01-06 Outpatient E [facility] CAR [id number] 14:19:00 14:19:00
[2020-02-13] MEDS ORDERED: FENTANYL CITR 100 MCG/2 ML ONE (13:09)
[2020-02-13] MEDS ORDERED: ONDANSETRON 4 MG/2 ML VIAL ONE (13:09)
[2020-02-13 13:12] LABS: Absolute Lymphocytes (CBC) 1.1 K/uL (0.7-4.9); Basophils % 0.3 % (0-1.3); Hematocrit 46.1 % (39.6-49.0); Lymphocytes % 9.8 % (15.3-44.8); MPV 8.3 fL (7.6-11.3); RBC Red Blood Cell Count 5.21 M/uL (4.33-5.43)
[2020-02-13 13:32] LABS: Albumin 4.1 g/dL (3.4-5.0); Bilirubin Direct 0.4 mg/dL (0-0.2); Bilirubin Total 1.9 mg/dL (0.2-1.0); Potassium 3.8 mmol/L (3.5-5.1); Protein, Total 7.2 g/dL (6.4-8.2)
[2020-02-13] MEDS ORDERED: HYDROMORPHONE HCL 0.5 MG/0.5 ML INJ ONE (13:44)
[2020-02-13 13:55] LABS: Urine White Blood Cell Casts OK
[2020-02-13 13:56] LABS: Blood Morphology Comment NOT SEEN (NOT SEEN); Platelet Estimate ADEQ
[2020-02-13 14:27] LABS: Urine Blood 3+ (NEG); Urine Glucose NEGATIVE (NEG); Urine Protein 2+ (NEG); Urine Specific Gravity >1.030 (1.005-1.030); Urine pH 5.5 (5.0-7.0)
--- NOTE | 2020-02-13 14:59 | RAD REPORT ---
EXAM DESCRIPTION: CTAbdomen Pelvis W Contrast - 02/13/2020 1:57 pm CLINICAL HISTORY: Abdominal pain. left sided abdominal pain COMPARISON: No comparisons TECHNIQUE: Biphasic CT imaging of the abdomen and pelvis was performed with 100 ml non-ionic IV cont rast. All CT scans are performed using dose optimization technique as appropriate and may include automated exposure control or mA/KV adjustment according to patient size. FINDINGS: The lung bases are clear. The liver, spleen, pancreas, adrenal glands and right kidney are within normal limits. Punctate 1 mm calculus is present at the left UVJ resulting mild left hydronephrosis and hydroureter. No bowel obstruction, free air, free fluid or abscess. The appendix is normal. No evidence of signi ficant lymphadenopathy. No suspicious bony findings. IMPRESSION: 1 mm calculus left UVJ resulting mild left hydronephrosis and hydroureter.
[2020-02-13] MEDS ORDERED: TAMSULOSIN 0.4 MG SR CAP ONE (15:15)
[2020-02-13] MEDS ORDERED: KETOROLAC 30 MG/ML INJ ONE (15:15)
[2020-02-13] MEDS ORDERED: NA CHLORIDE 0.9% 1,000 ML ONE (15:37)
--- NOTE | 2020-02-13 16:41 | EDPHYS ---
Physician Documentation [facility] Name: Panchito Ramirez Age: 59 yrs Sex: Male : 1960 Arrival Date: 02/13/2020 Time: 12:46 Bed 5 Private MD: ED Physician Koby Flores HPI: 02/12 12:59 This 59 yrs old Male presents to ER via Ambulatory with complaints of jmm Abdominal Pain. 12:59 The patient presents with abdominal pain in the left lower quadrant. Onset: The jmm symptoms/episode began/occurred gradually, this morning. The symptoms do not radiate. Associated signs and symptoms: Pertinent positives: nausea and vomiting, Pertinent negatives: diarrhea. The symptoms are described as achy, sharp. Modifying factors: The symptoms are alleviated by nothing, the symptoms are aggravated by nothing. This is a 59 year old male with a history of anxiety, CAD, HLP that presents to the ED with complaints of left lower abdominal pain beginning this morning. Denies diarrhea but states having one episode of vomiting. . Historical: - Allergies: 12:56 NKA; ll1 - PMHx: 12:56 Anxiety; NSTEMI; Hypertension; High Cholesterol; ll1 - PSHx: 12:56 Heart stents; ll1 - Immunization history:: Flu vaccine is not up to date. - Social history:: Patient/guardian denies using alcohol, street drugs, tobacco products. ROS: 12:59 Constitutional: Negative for fever, chills, and weight loss. jmm 12:59 Cardiovascular: Negative for chest pain, palpitations, and edema, Respiratory: Negative for shortness of breath, cough, wheezing, and pleuritic chest pain. 12:59 Cardiovascular: 12:59 Abdomen/GI: Positive for abdominal pain. 12:59 All other systems are negative. Exam: 12:59 Constitutional: This is a well developed, well nourished patient who is awake, alert, jmm and in no acute distress. Head/Face: atraumatic. Eyes: EOMI, no conjunctival erythema appreciated ENT: Moist Mucus Membranes Neck: Trachea midline, Supple Chest/axilla: Normal chest wall appearance and motion. Cardiovascular: Regular rate and rhythm. No edema appreciated Respiratory: Normal respirations, no respiratory distress appreciated 12:59 Back: Normal ROM Skin: General appearance color normal MS/ Extremity: Moves all extremities, no obvious deformities appreciated, no edema noted to the lower extremities Neuro: Awake and alert, normal gait Psych: Behavior is normal, Mood is normal, Patient is cooperative and pleasant 12:59 Abdomen/GI: Inspection: abdomen appears normal, Bowel sounds: normal, Palpation: soft, mild abdominal tenderness, in the left lower quadrant. Vital Signs: 12:54 BP 161 / 93; Pulse 65; Resp 17; Temp 97.8; Pulse Ox 99% ; Pain 9/10; ll1 14:07 BP 154 / 102; Pulse 80; Resp 18; Pulse Ox 98% on R/A; Pain 8/10; em 14:49 BP 148 / 83; Pulse 62; Resp 16; Pulse Ox 94% on R/A; Pain 3/10; em 17:18 BP 116 / 73; Pulse 75; Resp 18; Pulse Ox 96% on R/A; Pain 3/10; em MDM: 12:59 Patient medically screened. [facility] 16:35 Data reviewed: vital signs, nurses notes. Counseling: I had a detailed discussion with alida the patient and/or guardian regarding: the historical points, exam findings, and any diagnostic results supporting the discharge/admit diagnosis, lab results, radiology results, the need for outpatient follow up, to return to the emergency department if symptoms worsen or persist or if there are any questions or concerns that arise at home. ED course: Decreased pain in the ED. Patient advised to follow up with urology for further evaluation. Patient understood and agrees with the plan of care. . 02/12 13:00 Order name: Basic Metabolic Panel; Complete Time: 13:37 [facility] 02/12 13:00 Order name: CBC with Diff; Complete Time: 13:58 [facility] 02/12 13:00 Order name: Creatinine for Radiology; Complete Time: 13:37 [facility] 02/12 13:00 Order name: Hepatic Function; Complete Time: 13:37 [facility] 02/12 13:00 Order name: Lipase; Complete Time: 13:37 [facility] 02/12 13:55 Order name: CBC Smear Scan; Complete Time: 13:58 [facility] 02/12 13:00 Order name: CT Abd/Pelvis - IV Contrast Only; Complete Time: 15:03 [facility] 02/12 14:04 Order name: Urine Dipstick--Ancillary (enter results); Complete Time: 14:33 em1 02/12 13:00 Order name: IV Saline Lock; Complete Time: 13:10 [facility] 02/12 13:00 Order name: Labs collected and sent; Complete Time: 13:10 [facility] Administered Medications: 13:07 Drug: Zofran (Ondansetron) 4 mg Route: IVP; Site: right antecubital; em 13:23 Follow up: Response: No adverse reaction; Marked relief of symptoms; Nausea is decreasedem 13:09 Drug: fentaNYL (PF) 50 mcg Route: IVP; Site: right antecubital; em 13:23 Follow up: Response: No adverse reaction; Pain is unchanged, physician notified em 14:06 Drug: Dilaudid 0.5 mg Route: IVP; Site: right antecubital; em 14:21 Follow up: Response: No adverse reaction; Marked relief of symptoms; Pain is decreased em 15:15 Drug: Ketorolac 30 mg Route: IVP; Site: right antecubital; em 17:17 Follow up: Response: No adverse reaction; Marked relief of symptoms em 15:15 Drug: Flomax 0.4 mg Route: PO; em 17:17 Follow up: Response: No adverse reaction em 15:34 Drug: NS 0.9% 1000 ml Route: IV; Rate: 1 bolus; Site: right antecubital; em 17:17 Follow up: IV Status: Completed infusion; IV Intake: 1000ml em Disposition: 02/13 07:18 Co-signature as Attending Physician, Koby Flores MD Available for consultation . ps1 Disposition: 02/13/20 16:40 Discharged to Home. Impression: Calculus of ureter. - Condition is Stable. - Discharge Instructions: Kidney Stones. - Prescriptions for Zofran ODT 4 mg Oral tablet,disintegrating - place 1 tablet by TRANSLINGUAL route every 4-6 hours; 20 tablet. Flomax 0.4 mg Oral Capsule, Sust. Release 24 hr - take 1 capsule by ORAL route once daily 1/2 hour following the same meal each day; 30 capsule. Ultracet 37.5- 325 mg Oral Tablet - take 1 tablet by ORAL route every 6 hours - for up to 5 days; do not exceed 8 tablets per day.; 12 tablet. - Medication Reconciliation Form, Thank You Letter, Antibiotic Education, Prescription Opioid Use form. - Follow up: Private Physician; When: 2 - 3 days; Reason: Recheck today's complaints, Continuance of care, Re-evaluation by your physician. Signatures: Dispatcher [employer] Landen Dorsey PA PA jmm Munoz, Edgar, RN RN Koby Whelan MD MD ps1 Lisa Fletcher RN RN ll1 Corrections: (The following items were deleted from the chart) 02/12 17:19 16:40 02/13/2020 16:40 Discharged to Home. Impression: Calculus of ureter. Condition is em Stable. Forms are Medication Reconciliation Form, Thank You Letter, Antibiotic Education, Prescription Opioid Use. Follow up: Private Physician; When: 2 - 3 days; Reason: Recheck today's complaints, Continuance of care, Re-evaluation by your physician. alida
--- NOTE | 2020-02-13 16:41 | ER ---
Nurse's Notes [facility] Name: Panchito Ramirez Age: 59 yrs Sex: Male : 1960 Arrival Date: 02/13/2020 Time: 12:46 Bed 5 Private MD: Diagnosis: Calculus of ureter Presentation: 02/12 12:54 Chief complaint: Patient states: Left sided abd pain with N/V and constipation since ll1 0900 today. No fever. Coronavirus screen: Proceed with normal triage. Patient denies a cough. Patient denies shortness of breath or difficulty breathing. Patient denies measured and/or subjective temperature greater than 100.4F prior to today's visit. Patient denies travel on a cruise ship or to a country the [facility] currently lists as an affected area. Patient denies contact with known and/or suspected case of COVID-19. Ebola Screen: Patient denies travel to an Ebola-affected area in the 21 days before illness onset. Initial Sepsis Screen: Does the patient meet any 2 criteria? No. Patient's initial sepsis screen is negative. Risk Assessment: Do you want to hurt yourself or someone else? Patient reports no desire to harm self or others. Onset of symptoms was February 13, 2020. 12:54 Method Of Arrival: Ambulatory ll1 12:54 Acuity: ION 3 ll1 Historical: - Allergies: 12:56 NKA; ll1 - PMHx: 12:56 Anxiety; NSTEMI; Hypertension; High Cholesterol; ll1 - PSHx: 12:56 Heart stents; ll1 - Immunization history:: Flu vaccine is not up to date. - Social history:: Patient/guardian denies using alcohol, street drugs, tobacco products. Screenin:57 Abuse screen: Denies threats or abuse. Nutritional screening: No deficits noted. em Tuberculosis screening: No symptoms or risk factors identified. Fall Risk None identified. Assessment: 13:05 General: Appears in no apparent distress. uncomfortable, well groomed, well developed, em well nourished, Behavior is calm, cooperative, appropriate for age, Denies fever. Pain: Complains of pain in left lower quadrant Pain currently is 9 out of 10 on a pain scale. Pain began 0900 today. Neuro: Level of Consciousness is awake, alert, obeys commands, Oriented to person, place, time, situation, Appropriate for age. Cardiovascular: Denies chest pain, Capillary refill < 3 seconds Patient's skin is warm and dry. Respiratory: Airway is patent Respiratory effort is even, unlabored, Respiratory pattern is regular, symmetrical, Denies cough. GI: Abdomen is flat, Bowel sounds present X 4 quads. Abd is soft X 4 quads Abdomen is tender to palpation in left lower quadrant Reports constipation, nausea, Patient currently denies diarrhea. Derm: Skin is intact, is healthy with good turgor, Skin is pink, warm \\T\\ dry. Musculoskeletal: Capillary refill < 3 seconds, Range of motion: intact in all extremities. 13:23 Reassessment: reports pain 8/10, reports slight relief from pain medication, provider em notified. 13:50 Reassessment: pt wheeled to CT. em 14:22 Reassessment: Patient appears in no apparent distress at this time. Patient and/or em family updated on plan of care and expected duration. Pain level reassessed. Patient is alert, oriented x 3, equal unlabored respirations, skin warm/dry/pink. rates pain "tolerable" rates pain 7/10 Patient states feeling better. 15:00 Reassessment: Patient appears in no apparent distress at this time. Patient and/or em family updated on plan of care and expected duration. Pain level reassessed. Patient is alert, oriented x 3, equal unlabored respirations, skin warm/dry/pink. Patient states feeling better. Patient states symptoms have improved. 17:18 Reassessment: Patient appears in no apparent distress at this time. Patient and/or em family updated on plan of care and expected duration. Pain level reassessed. Patient is alert, oriented x 3, equal unlabored respirations, skin warm/dry/pink. rates pain 3/10 Patient states feeling better. Patient states symptoms have improved. Vital Signs: 12:54 BP 161 / 93; Pulse 65; Resp 17; Temp 97.8; Pulse Ox 99% ; Pain 9/10; ll1 14:07 BP 154 / 102; Pulse 80; Resp 18; Pulse Ox 98% on R/A; Pain 8/10; em 14:49 BP 148 / 83; Pulse 62; Resp 16; Pulse Ox 94% on R/A; Pain 3/10; em 17:18 BP 116 / 73; Pulse 75; Resp 18; Pulse Ox 96% on R/A; Pain 3/10; em ED Course: 12:46 Patient arrived in ED. mr 12:54 Dejon Licona, RN is Primary Nurse. em 12:55 Landen Ruano PA is PHCP. m 12:55 Koby Flores MD is Attending Physician. m 12:55 Triage completed. ll1 12:56 Arm band placed on Patient placed in an exam room, on a stretcher. ll1 12:57 Patient has correct armband on for positive identification. Bed in low position. Call em light in reach. Side rails up X2. Pulse ox on. NIBP on. 13:04 Initial lab(s) drawn, by me, sent to lab. Inserted saline lock: 20 gauge in right jp3 antecubital area, using aseptic technique. Blood collected. Patient maintains SpO2 saturation greater than 95% on room air. 13:08 Placed in gown. Warm blanket given. Verbal reassurance given. jp3 13:57 CT Abd/Pelvis - IV Contrast Only In Process Unspecified. EDMS 17:10 No provider procedures requiring assistance completed. IV discontinued, intact, em bleeding controlled, No redness/swelling at site. Pressure dressing applied. Administered Medications: 13:07 Drug: Zofran (Ondansetron) 4 mg Route: IVP; Site: right antecubital; em 13:23 Follow up: Response: No adverse reaction; Marked relief of symptoms; Nausea is decreasedem 13:09 Drug: fentaNYL (PF) 50 mcg Route: IVP; Site: right antecubital; em 13:23 Follow up: Response: No adverse reaction; Pain is unchanged, physician notified em 14:06 Drug: Dilaudid 0.5 mg Route: IVP; Site: right antecubital; em 14:21 Follow up: Response: No adverse reaction; Marked relief of symptoms; Pain is decreased em 15:15 Drug: Ketorolac 30 mg Route: IVP; Site: right antecubital; em 17:17 Follow up: Response: No adverse reaction; Marked relief of symptoms em 15:15 Drug: Flomax 0.4 mg Route: PO; em 17:17 Follow up: Response: No adverse reaction em 15:34 Drug: NS 0.9% 1000 ml Route: IV; Rate: 1 bolus; Site: right antecubital; em 17:17 Follow up: IV Status: Completed infusion; IV Intake: 1000ml em Intake: 17:17 IV: 1000ml; Total: 1000ml. em Outcome: 16:40 Discharge ordered by . alida 17:16 Discharged to home ambulatory. em 17:16 Condition: good 17:16 Discharge instructions given to patient, Instructed on discharge instructions, follow up and referral plans. medication usage, Demonstrated understanding of instructions, follow-up care, medications, Prescriptions given X 3. 17:19 Patient left the ED. em Signatures: Dispatcher [employer] EDLanden Blair PA PA jmm Rivera, Mary mr Munoz, Edgar, RN RN em Kojo Frost Lynsay, RN RN ll1
[2020-02-13 17:26] VITALS: TEMP 97.8
[2020-02-13 17:30] VITALS: BP 116/73; O2SAT 96
== END 2020-02-13 17:19 | disposition home or self-care (01) ==
LOC: ER 12:43
DX: N13.2 Hydronephrosis with renal and ureteral calculous obstruction (principal); N13.4 Hydroureter; I25.2 Old myocardial infarction; I25.10 Atherosclerotic heart disease of native coronary artery without angina pectoris; E78.5 Hyperlipidemia, unspecified; F41.9 Anxiety disorder, unspecified; Z95.5 Presence of coronary angioplasty implant and graft
CPT/HCPCS: 36415; 74177; 80048; 80076; 81003; 83690; 85025; 96361; 96374; 96375; 99284; J1170; J2405; J3010; J7030; Q9967

== ENCOUNTER 2022-07-13 00:14 | Emergency (ER) | payer SELFPAY ==
--- OUTSIDE RECORDS SUMMARY | 2022-07-13 00:17 | XMS REPORT | Continuity of Care Document ---
:1960 Author Organization [facility] t Address [address] [place] [address] Care Team Providers Name Role Phone Asked, No Pcp Primary Care Physician Unavailable KELSEY SAALZAR Attending Clinician Unavailable NATA BRUMFIELD Attending Clinician Unavailable ANAMARIA CORDERO Attending Clinician Unavailable NENITA OWENS Attending Clinician Unavailable NATA BRUMFIELD Admitting Clinician Unavailable ANAMARIA CORDERO Admitting Clinician Unavailable NENITA OWENS Admitting Clinician Unavailable Problems Condition Condition Condition Status Onset Resolution Last Treating Co mments Source Name Details Category Date Date Treatment Clinician Date Exertional Exertional Disease Active M ethodi chest pain chest pain [facility] 00[facility]: [facility] l Chest pain Chest pain Disease Active [address] 00:00: [facility]ospita 00 l Allergies, Adverse Reactions, Alerts Allergy Allergy Status Severity Reaction(s) Onset Inactive Treating Comm ents Source Name Type Date Date Clinician Codeine Propensi Active Rash 0 Methodi ty to [address] adverse 00:00: Hospita reaction 00 l s to drug Social History Social Habit Start Date Stop Date Quantity Comments Source History [facility] Drinks History [facility] Alcohol intake 2019-06-20 2019-06-20 Lifetime [facility] 00:00:00 00:00:00 non-drinker Hospital (finding) History [facility] 2019-06-20 2019-06-20 1 [facility] Alcohol Frequency 00:00:00 00:00:00 Hospita l Tobacco use and 2019-06-19 2019-06-19 Smokeless tobacco [facility] exposure 00:00:00 00:00:00 non-user Hospital Sex Assigned At [birth year] [facility] 00:00:00 00:00:00 Hospital Smoking Status Start Date Stop Date Source Never smoked tobacco [facility] Medications Ordered Filled Start Stop Current Ordering Indication Dosage Frequency Signature Comments Components Source Medication Medication Date Date Medication? Clinician (SIG) Name Name aspirin Yes 81mg QD Take 81 mg Meth irina (ECOTRIN) 06-[address] 81 MG 16:11: every Hospita enteric 02 morning. l coated tablet multivitami Yes 1{tbl} QD Take 1 Me thodi n - tablet by st (THERAGRAN) 16:11: mouth Hospi ta tablet 02 every l morning. garlic Yes 1{capsu QD Take 1 Method i capsule 06-21 le} capsule by st 16:11: mouth Hospita 02 every l morning. metoprolol Yes 25mg Q.5D Take 25 mg M ethodi tartrate 06-[address] (LOPRESSOR) 16:11: (two) Hospi ta 25 mg 02 times a l tablet day. Take 1/2 table 2 times daily Procedures This patient has no known procedures. Plan of Care Planned Activity Planned Date Details Comments Source Future Scheduled 2022-07-08 HEPATITIS B VACCINES Met [facility] Test 08:08:31 (1 of 3 - 3-dose series) [code = HEPATITIS B VACCINES (1 of 3 - 3-dose series)] Future Scheduled 2022-07-08 COVID-19 VACCINE (#1) [facility] Test 08:08:31 [code = COVID-19 VACCINE (#1)] Future Scheduled 2022-07-08 COLONOSCOPY SCREENING [facility] Test 08:08:31 [code = COLONOSCOPY SCREENING] Future Scheduled 2022-07-08 SHINGLES VACCINES (1 Met [facility] Test 08:08:31 of 2) [code = SHINGLES VACCINES (1 of 2)] Future Scheduled 2022-07-08 INFLUENZA VACCINE Method [facility] Test 08:08:31 [code = INFLUENZA VACCINE] Encounters Start End Encounter Admission Attending Care Care Encounter Source Date/Time Date/Time Type Type Clinicians Facility Department ID 2022-06-07 Outpatient [facility] [id number] [place] 12:25:14 [id number] [facility] 2022-10-05 2022-10-05 Outpatient MARIE, [facility] [id number] [place] 13:00:00 13:00:00 [facility] 2020-07-21 2020-07-22 Outpatient E BRISSA, [facility] MED [id number] [facility] 16:47:00 17:14:00 NATA 2020-03-12 2020-03-12 Outpatient E CONSUELO, [facility] CAR [id number] [facility] 04:22:00 16:15:00 ANAMARIA 2020-01-06 2020-01-07 Outpatient E ROMAN, [facility] CAR [id number] [facility] 14:19:00 20:05:00 NENITA Results This patient has no known results.
[2022-07-13 01:07] LABS: Absolute Lymphocytes (CBC) 2.3 K/uL (0.7-4.9); Hematocrit 46.4 % (39.6-49.0); Lymphocytes % 27.9 % (15.3-44.8); MCV 86.7 fL (80-100); RBC Red Blood Cell Count 5.35 M/uL (4.33-5.43)
[2022-07-13 01:15] LABS: Potassium 3.7 mmol/L (3.5-5.1); Troponin High Sensitivity 5.3 pg/mL (<58.9)
--- NOTE | 2022-07-13 05:06 | ER ---
Nurse's Notes [facility] Name: Panchito Ramirez Age: 61 yrs Sex: Male : 1960 Arrival Date: 07/13/2022 Time: 00:17 Bed 14 Private MD: Diagnosis: Chest pain on breathing Presentation: 07/13 00:22 Chief complaint: Patient states: I usually have a bp of 120's over 70's. Maybe high aa9 130/80. My latest bp was I have been having aches in my left arm and right arm. I just my metoprolol an hour ago. Coronavirus screen: Vaccine status: Patient reports being unvaccinated. Ebola Screen: No symptoms or risks identified at this time. Initial Sepsis Screen: Does the patient meet any 2 criteria? No. Patient's initial sepsis screen is negative. Does the patient have a suspected source of infection? No. Patient's initial sepsis screen is negative. Risk Assessment: Do you want to hurt yourself or someone else? Patient reports no desire to harm self or others. Onset of symptoms was July 12, 2022 at 12:00. 00:22 Method Of Arrival: Ambulatory aa9 00:22 Acuity: ION 3 aa9 00:28 Care prior to arrival: Medication(s) given: metoprolol. aa9 Triage Assessment: 00:26 General: Appears uncomfortable, Behavior is cooperative, anxious. Pain: Denies pain. aa9 Cardiovascular: Reports shortness of breath, since all day. Respiratory: Airway is patent Respiratory effort is even, unlabored. Historical: - Allergies: 00:25 Codeine; aa9 - Home Meds: 00:25 atorvastatin 80 mg Oral tab 1 tab once daily [Active]; clopidogrel 75 mg Oral tab 1 tab aa9 once daily [Active]; Metoprolol Tartrate 12.5 MG Oral 2 times per day [Active]; pantoprazole 40 mg Oral TbEC 1 tab once daily [Active]; - PMHx: 00:25 High Cholesterol; Hypertension; Anxiety; NSTEMI; aa9 - Immunization history:: Client reports having NOT received the Covid vaccine. - Social history:: Smoking status: Patient denies any tobacco usage or history of. Screenin:27 Abuse screen: Denies threats or abuse. Denies injuries from another. Nutritional aa9 screening: No deficits noted. Tuberculosis screening: No symptoms or risk factors identified. Fall Risk None identified. Assessment: 01:00 General: Appears uncomfortable. Pain: Denies pain. Pain Pain began suddenly. ja4 Cardiovascular: Reports chest pain, pt report shooting pain that happened 4 yrs ago and had to get a stent. wanted to make sure it wasn't the same thing. Respiratory: No deficits noted. Vital Signs: 00:22 BP 179 / 106; Pulse 65; Resp 19 S; Temp 97.0(O); Pulse Ox 100% on R/A; Weight 88.45 kg aa9 (R); Height 5 ft. 10 in. (177.80 cm) (R); Pain 0/10; 01:27 BP 129 / 80; Pulse 66; Resp 20; Pulse Ox 99% on R/A; ja4 02:20 BP 126 / 75; Pulse 60; Resp 18; Pulse Ox 98% on R/A; ja4 04:56 BP 133 / 83; Pulse 62; Resp 13; Pulse Ox 100% on R/A; ja4 00:22 Body Mass Index 27.98 (88.45 kg, 177.80 cm) aa9 ED Course: 00:17 Patient arrived in ED. bp1 00:19 Tommie Villareal MD is Attending Physician. kdr 00:25 Triage completed. aa9 00:27 Arm band placed on. aa9 00:27 Patient has correct armband on for positive identification. aa9 00:38 Inserted saline lock: 20 gauge in right antecubital area, using aseptic technique. aa9 Blood collected. 00:40 Basic Metabolic Panel Sent. aa9 00:40 CBC with Diff Sent. aa9 00:40 Troponin HS Sent. aa9 00:48 XRAY Chest (1 view) In Process Unspecified. EDMS 00:52 Kingsley Fry, DEIDRE is Primary Nurse. ja4 01:00 Client placed on continuous cardiac and pulse oximetry monitoring. NIBP monitoring ja4 applied. 01:00 No provider procedures requiring assistance completed. ja4 05:13 IV discontinued, intact, bleeding controlled, No redness/swelling at site. Pressure ja4 dressing applied. Administered Medications: No medications were administered Outcome: 05:05 Discharge ordered by . kdr 05:13 Discharged to home ambulatory. ja4 05:13 Condition: good 05:13 Discharge instructions given to patient, Instructed on discharge instructions, follow up and referral plans. Demonstrated understanding of instructions, follow-up care. 05:14 Patient left the ED. ja4 Signatures: Dispatcher [employer] EDTommie Ley MD MD kdr Paniauga, Brittany bp1 Avalos, Aylin RN RN aa9 Kingsley Fry RN RN ja4 Corrections: (The following items were deleted from the chart) 00:26 00:25 Allergies: NKA; aa9 aa9
--- NOTE | 2022-07-13 05:06 | EDPHYS ---
Physician Documentation [facility] Name: Panchito Ramirez Age: 61 yrs Sex: Male : 1960 Arrival Date: 07/13/2022 Time: 00:17 Bed 14 Private MD: ED Physician Tommie Villareal HPI: 07/13 03:09 This 61 yrs old Male presents to ER via Ambulatory with complaints of High Blood kdr Pressure, Chest Pain > 30 y/o. 03:11 Patient states that earlier today, he felt chest pain lateral thorax pain shoulder pain kdr and upper extremity pain. He also just had a general uneasy feeling. All of the symptoms are constellation of similar symptoms to when he had prior heart cath and stenting. He states that initially the testing did not reveal any abnormality or need for intervention but after 4 or 5 presentations to the ED. Onset: The symptoms/episode began/occurred this morning. Severity of symptoms: At their worst the symptoms were mild moderate just prior to arrival, in the emergency department the symptoms are unchanged. The patient has experienced similar episodes in the past, a few times. The patient has not recently seen a physician. Historical: - Allergies: 00:25 Codeine; aa9 - Home Meds: 00:25 atorvastatin 80 mg Oral tab 1 tab once daily [Active]; clopidogrel 75 mg Oral tab 1 tab aa9 once daily [Active]; Metoprolol Tartrate 12.5 MG Oral 2 times per day [Active]; pantoprazole 40 mg Oral TbEC 1 tab once daily [Active]; - PMHx: 00:25 High Cholesterol; Hypertension; Anxiety; NSTEMI; aa9 - Immunization history:: Client reports having NOT received the Covid vaccine. - Social history:: Smoking status: Patient denies any tobacco usage or history of. ROS: 03:11 Constitutional: Negative for fever, chills, and weight loss, Eyes: Negative for injury, kdr pain, redness, and discharge, ENT: Negative for injury, pain, and discharge, Neck: Negative for injury, pain, and swelling, Respiratory: Negative for shortness of breath, cough, wheezing, and pleuritic chest pain, Abdomen/GI: Negative for abdominal pain, nausea, vomiting, diarrhea, and constipation, Back: Negative for injury and pain, : Negative for injury, bleeding, discharge, and swelling, MS/Extremity: Negative for injury and deformity, Skin: Negative for injury, rash, and discoloration, Neuro: Negative for headache, weakness, numbness, tingling, and seizure activity. Psych: Negative for depression, anxiety, suicide ideation, homicidal ideation, and hallucinations, Allergy/Immunology: Negative for hives, rash, and allergies, Endocrine: Negative for neck swelling, polydipsia, polyuria, polyphagia, and marked weight changes, Hematologic/Lymphatic: Negative for swollen nodes, abnormal bleeding, and unusual bruising. 03:11 Cardiovascular: Positive for chest pain, Negative for edema, orthopnea, palpitations, paroxysmal nocturnal dyspnea, acute changes. Exam: 03:11 Constitutional: This is a well developed, well nourished patient who is awake, alert, kdr and in no acute distress. Head/Face: Normocephalic, atraumatic. Eyes: Pupils equal round and reactive to light, extra-ocular motions intact. Lids and lashes normal. Conjunctiva and sclera are non-icteric and not injected. Cornea within normal limits. Periorbital areas with no swelling, redness, or edema. Neck: Trachea midline, no thyromegaly or masses palpated, and no cervical lymphadenopathy. Supple, full range of motion without nuchal rigidity, or vertebral point tenderness. No Meningismus. Chest/axilla: Normal chest wall appearance and motion. Nontender with no deformity. No lesions are appreciated. Cardiovascular: Regular rate and rhythm with a normal S1 and S2. No gallops, murmurs, or rubs. Normal PMI, no JVD. No pulse deficits. Respiratory: Lungs have equal breath sounds bilaterally, clear to auscultation and percussion. No rales, rhonchi or wheezes noted. No increased work of breathing, no retractions or nasal flaring. Abdomen/GI: Soft, non-tender, with normal bowel sounds. No distension or tympany. No guarding or rebound. No evidence of tenderness throughout. Back: No spinal tenderness. No costovertebral tenderness. Full range of motion. Skin: Warm, dry with normal turgor. Normal color with no rashes, no lesions, and no evidence of cellulitis. MS/ Extremity: Pulses equal, no cyanosis. Neurovascular intact. Full, normal range of motion. Neuro: Awake and alert, GCS 15, oriented to person, place, time, and situation. Cranial nerves II-XII grossly intact. Motor strength 5/5 in all extremities. Sensory grossly intact. Cerebellar exam normal. Normal gait. Psych: Awake, alert, with orientation to person, place and time. Behavior, mood, and affect are within normal limits. 04:45 ECG was reviewed by the Attending Physician. kdr Vital Signs: 00:22 BP 179 / 106; Pulse 65; Resp 19 S; Temp 97.0(O); Pulse Ox 100% on R/A; Weight 88.45 kg aa9 (R); Height 5 ft. 10 in. (177.80 cm) (R); Pain 0/10; 01:27 BP 129 / 80; Pulse 66; Resp 20; Pulse Ox 99% on R/A; ja4 02:20 BP 126 / 75; Pulse 60; Resp 18; Pulse Ox 98% on R/A; ja4 04:56 BP 133 / 83; Pulse 62; Resp 13; Pulse Ox 100% on R/A; ja4 00:22 Body Mass Index 27.98 (88.45 kg, 177.80 cm) aa9 MDM: 05:05 Patient medically screened. kdr 05:53 Data reviewed: vital signs, nurses notes, lab test result(s). Counseling: I had a kdr detailed discussion with the patient and/or guardian regarding: the historical points, exam findings, and any diagnostic results supporting the discharge/admit diagnosis, lab results, radiology results, the need for outpatient follow up. 07/13 00:24 Order name: Basic Metabolic Panel; Complete Time: 02:43 [facility] 07/13 00:24 Order name: CBC with Diff; Complete Time: 02:43 [facility] 07/13 00:24 Order name: Troponin HS; Complete Time: 02:43 [facility] 07/13 00:24 Order name: XRAY Chest (1 view) [facility] 07/13 00:24 Order name: EKG; Complete Time: 00:31 kdr 07/13 02:44 Order name: Troponin High Sensitivity; Complete Time: 04:36 kdr 07/13 00:24 Order name: Cardiac monitoring; Complete Time: 00:40 [facility] 07/13 00:24 Order name: EKG - Nurse/Tech; Complete Time: 00:39 kdr 07/13 00:24 Order name: IV Saline Lock; Complete Time: 00:39 [facility] 07/13 00:24 Order name: Labs collected and sent; Complete Time: 00:39 kdr 07/13 00:24 Order name: O2 Per Protocol; Complete Time: 00:40 kdr 07/13 00:24 Order name: O2 Sat Monitoring; Complete Time: 00:40 kdr EC:45 Rate is 81 beats/min. Rhythm is regular, Sinus Rhythm with No ectopy. QRS [place] is kdr Normal. [place] interval is normal. QRS interval is normal. QT interval is normal. Clinical impression: NSR w/ Non-specific ST/T Changes. Administered Medications: No medications were administered Disposition Summary: 07/13/22 05:05 Discharge Ordered Location: Home kdr Problem: an acute exacerbation kdr Symptoms: are resolved kdr Condition: Stable kdr Diagnosis - Chest pain on breathing kdr Followup: kdr - With: Private Physician - When: 2 - 3 days - Reason: If symptoms return, Further diagnostic work-up, Recheck today's complaints, Continuance of care, Re-evaluation by your physician Discharge Instructions: - Discharge Summary Sheet kdr - Chest Wall Pain kdr - Nonspecific Chest Pain, Adult, [id number] kdr Forms: - Medication Reconciliation Form kdr - Thank You Letter kdr Signatures: Dispatcher [employer] Tommie Celeste MD MD kdr Qing Garcia RN RN aa9 Corrections: (The following items were deleted from the chart) 00:26 00:25 Allergies: NKA; aa9 aa9
[2022-07-13 05:27] VITALS: TEMP 97
[2022-07-13 05:57] VITALS: BP 133/83; O2SAT 100
--- NOTE | 2022-07-13 16:21 | RAD REPORT ---
EXAM DESCRIPTION: RAD - Chest Single View - 07/13/2022 12:47 am CLINICAL HISTORY: 1 years Male, CHEST PAIN COMPARISON: None IMPRESSION: Chronic lung changes. No focal consolidation. No pleural effusion. No pneumothorax. Cardiomediastinal silhouette is within normal limits. No acute osseous abnormality. Electronically signed by: Partha Mackey DO 07/13/2022 1:03 AM CDT Due to temporary technical issues with the PACS/Fluency reporting system, reports are being signed by the in house radiologists without review as a courtesy to insure prompt reporting. The interpreting radiologist is fully responsible for the content of the report.
--- NOTE | 2022-07-14 17:14 | EKG ---
Test Date: 2022-07-13 Test Time: 00:32:28 [employer]earoom Hostess: JENNIFER MEASUREMENT RESULTS: Intervals: Rate: 61 WI: 144 QRSD: 88 QT: 398 QTc: 400 [place]: P: 46 WI: 144 QRS: 52 T: 40 INTERPRETIVE STATEMENTS: Normal sinus rhythm Possible Left atrial enlargement Possible Anterior infarct, age undetermined Abnormal ECG Compared to ECG 04/27/2018 13:57:28 Myocardial infarct finding now present T-wave abnormality no longer present Possible ischemia no longer present Electronically Signed On 07-14-22 17:07:14 CDT by Elie Judge
== END 2022-07-13 05:14 | disposition home or self-care (01) ==
LOC: ER 00:14
DX: R07.1 Chest pain on breathing (principal); I10 Essential (primary) hypertension; I25.2 Old myocardial infarction; Z88.5 Allergy status to narcotic agent
CPT/HCPCS: 36415; 71045; 80048; 84484; 85025; 93005; 99284

== ENCOUNTER 2023-02-24 22:05 | Observation (INO) | payer SELFPAY ==
--- OUTSIDE RECORDS SUMMARY | 2023-02-24 22:08 | XMS REPORT | Continuity of Care Document ---
:[address] [facility] t Address [address] [place] [address] Care Team Providers Name Role Phone BebeCelio wilkersonlacy Davis Primary Care Physician Anibal Huynh MD Attending Clinician NATA BRUMFIELD Attending Clinician Unavailable ANAMARIA CORDERO Attending Clinician Unavailable NENITA OWENS Attending Clinician Unavailable NATA BRUMFIELD Admitting Clinician Unavailable ANAMARIA CORDERO Admitting Clinician Unavailable NENITA OWENS Admitting Clinician Unavailable Problems Condition Condition Condition Status Onset Resolution Last Treating Co mments Source Name Details Category Date Date Treatment Clinician Date Essential Essential Disease Active 2021-10 [facility] hypertensi hypertensi 2-06 He alth on on 00:00: 00 Coronary Coronary Disease Active 2021-10 [facility] artery artery 206 Health disease disease 00:00: involving involving 00 [facility] heart without without angina angina pectoris pectoris Mixed Mixed Disease Active 2021-10 [facility] hyperlipid hyperlipid 206 He alth emia emia 00:00: 00 Exertional Exertional Disease Active 0 M ethodi chest pain chest pain 8 st 00:00: Hospita 00 l Chest pain Chest pain Disease Active M ethodi [facility] 00:00: Hospita 00 l Allergies, Adverse Reactions, Alerts Allergy Allergy Status Severity Reaction(s) Onset Inactive Treating Comm ents Source Name Type Date Date Clinician Codeine Propensi Active Rash Methodi ty to 11-17 st adverse 00:00: Hospita reaction 00 l s to drug Codeine Allergy Active Rash 2016- [facility] to 11-17 Health substanc 00:00: e 00 Social History Social Habit Start Date Stop Date Quantity Comments Source [facility] Std Dr[facility] Hospit al History [facility] Exposure to 2022-09-25 2022-10-05 Not sure [facility] SARS-CoV-2 (event) 00:00:00 12:32:00 History SDOH 2019-06-20 2019-06-20 1 [facility] Frequency 00:00:00 00:00:00 Hospita l Alcohol intake 2019-06-20 2019-06-20 Lifetime [facility] 00:00:00 00:00:00 non-drinker Hospital (finding) Tobacco use and 2019-06-19 2019-06-19 Smokeless [facility] exposure 00:00:00 00:00:00 tobacco non-user Hospital Sex Assigned At [birth year] [facility] 00[facility]00 [facility] Smoking Status Start Date Stop Date Source Tobacco smoking consumption unknown [facility] Never smoked tobacco [facility] Medications Ordered Filled Start Stop Current Ordering Indication Dosage Frequency Signature Comments Components Source Medication Medication Date Date Medication? Clinician (SIG) Name Name aspirin 81 2021-10 Yes [id number] 81mg QD Take 81 mg [facility] MG EC 12-06 by mouth 1 Health tablet 12:53: (one) time 18 each day. amLODIPine 2021-10- No [id number] 5mg QD Take 1 [facility] (Norvasc) 5 12-06 tablet (5 He alth MG tablet 00:00: 05:59 mg total) 00 :00 by mouth 1 (one) time each day. losartan 2021-10- No [id number] 25mg QD Take 1 [facility] (Cozaar) 25 12-06 tablet (25 H ealth MG tablet 00:00: 05:59 mg total) 00 :00 by mouth 1 (one) time each day. atorvastati 2021-10- No [id number] 80mg QD Take 1 UT n (Lipitor) 12-06 tablet (80 H ealth 80 MG 00:00: 05:59 mg total) tablet 00 :00 by mouth 1 (one) time each day. atorvastati 2021-10- No [id number] TAKE 1 UT n (Lipitor) - 12-06 TABLET BY He alth 80 MG 00:00: 00:00 MOUTH 1 tablet 00 :00 TIME EACH DAY. metoprolol Yes [id number] TAKE 1/2 UT tartrate 2-07 TABLET BY Health (Lopressor) 00:00: MOUTH 25 MG 00 TWICE A tablet DAY clopidogrel Yes [id number] TAKE 1 UT (Plavix) 75 2-07 TABLET BY Hea lth MG tablet 00:00: MOUTH 00 EVERY DAY metoprolol Yes 25mg Q.5D Take 25 mg M ethodi tartrate 8-[address] (LOPRESSOR) 16:11: (two) Hospi ta 25 mg 02 times a l tablet day. Take 1/2 table 2 times daily aspirin Yes 81mg QD Take 81 mg Meth irina (ECOTRIN) 8-[address] 81 MG 16:11: every Hospita enteric 02 morning. l coated tablet multivitami Yes 1{tbl} QD Take 1 Me thodi n 8-[address] (THERAGRAN) 16:11: mouth Hospi ta tablet 02 every l morning. garlic Yes 1{capsu QD Take 1 Method i capsule 8-22 le} capsule by st 16:11: mouth Hospita 02 every l morning. metoprolol Yes 25mg Q.5D Take 25 mg M ethodi tartrate 8-[address] (LOPRESSOR) 16:11: (two) Hospi ta 25 mg 02 times a l tablet day. Take 1/2 table 2 times daily aspirin Yes 81mg QD Take 81 mg Meth irina (ECOTRIN) 8-[address] 81 MG 16:11: every Hospita enteric 02 morning. l coated tablet multivitami 2018-0 Yes 1{tbl} QD Take 1 Me thodi n 8-[address] (THERAGRAN) 16:11: mouth Hospi ta tablet 02 every l morning. garlic 2018- Yes 1{capsu QD Take 1 Method i capsule 8-22 le} capsule by st 16:11: mouth Hospita 02 every l morning. metoprolol 2019 Yes 25mg Q.5D Take 25 mg M ethodi tartrate 8-[address] (LOPRESSOR) 16:11: (two) Hospi ta 25 mg 02 times a l tablet day. Take 1/2 table 2 times daily aspirin Yes 81mg QD Take 81 mg Meth irina (ECOTRIN) 8-[address] 81 MG 16:11: every Hospita enteric 02 morning. l coated tablet multivitami Yes 1{tbl} QD Take 1 Me thodi n 8-[address] (THERAGRAN) 16:11: mouth Hospi ta tablet 02 every l morning. garlic Yes 1{capsu QD Take 1 Method i capsule 8-22 le} capsule by st 16:11: mouth Hospita 02 every l morning. metoprolol Yes 25mg Q.5D Take 25 mg M ethodi tartrate 8-[address] (LOPRESSOR) 16:11: (two) Hospi ta 25 mg 02 times a l tablet day. Take 1/2 table 2 times daily aspirin Yes 81mg QD Take 81 mg Meth irina (ECOTRIN) 8-[address] 81 MG 16:11: every Hospita enteric 02 morning. l coated tablet multivitami 0 Yes 1{tbl} QD Take 1 Me thodi n 8-[address] (THERAGRAN) 16:11: mouth Hospi ta tablet 02 every l morning. garlic Yes 1{capsu QD Take 1 Method i capsule 8-22 le} capsule by st 16:11: mouth Hospita 02 every l morning. Vital Signs Vital Name Observation Time Observation Value Comments Source BMI 2022-10-05 18:53:00 29.89 kg/m2 [facility] Oxygen saturation in 2022-10-05 18:53:00 98 /min [facility] Arterial blood by Pulse oximetry Systolic blood pressure 2022-10-05 18:53:00 134 mm[Hg] [facility] Diastolic blood pressure 2022-10-05 18:53:00 85 mm[Hg] [facility] Heart rate 2022-10-05 18:53:00 69 /min [facility] Respiratory rate 2022-10-05 18:53:00 16 /min [facility] Body height 2022-10-05 18:53:00 175.3 cm [facility] Body weight 2022-10-05 18:53:00 91.808 kg [facility] Procedures Procedure Date / Time Performed Performing Clinician [facility] e ECG 12-LEAD 2022-10-05 21:17:38 [facility] Planned Activity Planned Date Details Comments Source Future Scheduled 2023-02-03 COVID-19 VACCINE (#1) [facility] Test 17:52:15 [code = COVID-19 VACCINE (#1)] Future Scheduled 2023-02-03 COLONOSCOPY SCREENING [facility] Test 17:52:15 [code = COLONOSCOPY SCREENING] Future Scheduled 2023-02-03 SHINGLES VACCINES (1 Met [facility] Test 17:52:15 of 2) [code = SHINGLES VACCINES (1 of 2)] Future Scheduled 2023-02-03 INFLUENZA VACCINE [facility] Test 17:52:15 [code = INFLUENZA VACCINE] Future Scheduled 2022-09-02 HEPATITIS B VACCINES Met [facility] Test 17:55:15 (1 of 3 - 3-dose series) [code = HEPATITIS B VACCINES (1 of 3 - 3-dose series)] Future Scheduled 2022-09-02 COVID-19 VACCINE (#1) [facility] Test 17:55:15 [code = COVID-19 VACCINE (#1)] Future Scheduled 2022-09-02 COLONOSCOPY SCREENING [facility] Test 17:55:15 [code = COLONOSCOPY SCREENING] Future Scheduled 2022-09-02 SHINGLES VACCINES (1 Met [facility] Test 17:55:15 of 2) [code = SHINGLES VACCINES (1 of 2)] Future Scheduled 2022-09-02 INFLUENZA VACCINE [facility] Test 17:55:15 [code = INFLUENZA VACCINE] Future Scheduled 2022-09-02 HEPATITIS B VACCINES Met [facility] Test 17:55:15 (1 of 3 - 3-dose series) [code = HEPATITIS B VACCINES (1 of 3 - 3-dose series)] Future Scheduled 2022-09-02 COVID-19 VACCINE (#1) [facility] Test 17:55:15 [code = COVID-19 VACCINE (#1)] Future Scheduled 2022-09-02 COLONOSCOPY SCREENING [facility] Test 17:55:15 [code = COLONOSCOPY SCREENING] Future Scheduled 2022-09-02 SHINGLES VACCINES (1 Met [facility] Test 17:55:15 of 2) [code = SHINGLES VACCINES (1 of 2)] Future Scheduled 2022-09-02 INFLUENZA VACCINE Method [facility] Test 17:55:15 [code = INFLUENZA VACCINE] Future Scheduled 2022-07-08 HEPATITIS B VACCINES Met [facility] Test 08:08:31 (1 of 3 - 3-dose series) [code = HEPATITIS B VACCINES (1 of 3 - 3-dose series)] Future Scheduled 2022-07-08 COVID-19 VACCINE (#1) [facility] Test 08:08:31 [code = COVID-19 VACCINE (#1)] Future Scheduled 2022-07-08 COLONOSCOPY SCREENING [facility] Test 08:08:31 [code = COLONOSCOPY SCREENING] Future Scheduled 2022-07-08 SHINGLES VACCINES (1 Met [facility] Test 08:08:31 of 2) [code = SHINGLES VACCINES (1 of 2)] Future Scheduled 2022-07-08 INFLUENZA VACCINE Method [facility] Test 08:08:31 [code = INFLUENZA VACCINE] Encounters Start End Encounter Admission Attending Care Care Encounter Source Date/Time Date/Time Type Type Clinicians Facility Department ID 2022-10-05 Outpatient [facility] [id number] [place] 12:57:23 [id number] [facility] 2022-10-04 Outpatient [facility] [id number] [place] 14:25:53 [id number] [facility] 2022-09-21 Outpatient [facility] [id number] [place] 08:45:43 [id number] [facility] 2022-06-07 Outpatient [facility] [id number] [place] 12:25:14 [id number] [facility] 2022-10-05 2022-10-05 Office KEYLA Huynh 6410 [id number] [facility] 13:00:00 15:24:41 Visit Anibal WARREN [id number] [facility] [id number] 2020-07-21 2020-07-22 Outpatient Amber BRUMFIELD [facility] [id number] [facility] 16:47:00 17:14:00 NATA 2020-03-12 2020-03-12 Outpatient E CONSUELO, [facility] [id number] [facility] 04:22:00 16:15:00 ANAMARIA 2020-01-06 2020-01-07 Outpatient E ROMAN, [facility] [id number] [facility] 14:19:00 20:05:00 [facility] Results This patient has no known results.
[2023-02-24] MEDS ORDERED: ASPIRIN 81 MG CHEWABLE TABLET ONE (22:41)
[2023-02-24 22:53] LABS: Absolute Lymphocytes (CBC) 1.9 K/uL (0.7-4.9); Hematocrit 46.3 % (39.6-49.0); Lymphocytes % 24.6 % (15.3-44.8); MCV 87.5 fL (80-100); MPV 8.3 fL (7.6-11.3); RBC Red Blood Cell Count 5.29 M/uL (4.33-5.43)
[2023-02-24 22:54] LABS: Protime INR 0.99
[2023-02-24 23:04] LABS: Potassium 3.6 mEq/L (3.5-5.1); Troponin High Sensitivity 6.6 pg/mL (<58.9)
[2023-02-24 23:09] LABS: Albumin 4.2 g/dL (3.4-5.0); Bilirubin Direct 0.4 mg/dL (0-0.2); Bilirubin Total 2.1 mg/dL (0.2-1.0); Protein, Total 7.2 g/dL (6.4-8.2)
--- NOTE | 2023-02-24 23:59 | EDPHYS ---
Physician Documentation [facility] Name: Panchito Ramirez Age: 62 yrs Sex: Male : 1960 Arrival Date: 02/24/2023 Time: 22:05 Bed 15 Private MD: ED Physician Kev Cat HPI: 02/24 23:53 This 62 yrs old Male presents to ER via Ambulatory with complaints of High zaria Blood Pressure, Chest Pain, Arm Pain, Itching, Eye Problem, Leg Pain. 23:53 The patient has elevated blood pressure and discovered this at home, with a home zaria device. Onset: The symptoms/episode began/occurred 3 day(s) ago. Modifying factors: The symptoms are aggravated by activity, The symptoms are alleviated by remaining still. Associated signs and symptoms: The patient has no apparent associated signs or symptoms. Severity of symptoms: At its worst the blood pressure was mild, in the emergency department the blood pressure is unchanged. The patient has not experienced similar symptoms in the past. The patient has experienced similar episodes in the past, multiple times. Historical: - Allergies: 22:16 Codeine; mb9 - Home Meds: 22:16 atorvastatin 80 mg Oral tab 1 tab once daily [Active]; clopidogrel 75 mg Oral tab 1 tab mb9 once daily [Active]; Metoprolol Tartrate 12.5 MG Oral 2 times per day [Active]; losartan 25 mg oral tablet once [Active]; - PMHx: 22:16 Anxiety; High Cholesterol; Hypertension; NSTEMI; mb9 - PSHx: 22:16 Stented artery; mb9 - Immunization history:: Adult Immunizations up to date. - Social history:: Smoking status: Patient denies any tobacco usage or history of. ROS: 23:55 Constitutional: Negative for fever, chills, and weight loss, Eyes: Negative for injury, zaria pain, redness, and discharge, ENT: Negative for injury, pain, and discharge, Neck: Negative for injury, pain, and swelling, Respiratory: Negative for shortness of breath, cough, wheezing, and pleuritic chest pain, Abdomen/GI: Negative for abdominal pain, nausea, vomiting, diarrhea, and constipation, Back: Negative for injury and pain, : Negative for injury, bleeding, discharge, and swelling, MS/Extremity: Negative for injury and deformity, Skin: Negative for injury, rash, and discoloration, Neuro: Negative for headache, weakness, numbness, tingling, and seizure, Psych: Negative for depression, anxiety, suicide ideation, homicidal ideation, and hallucinations, Allergy/Immunology: Negative for hives, rash, and allergies, Endocrine: Negative for neck swelling, polydipsia, polyuria, polyphagia, and marked weight changes, Hematologic/Lymphatic: Negative for swollen nodes, abnormal bleeding, and unusual bruising. 23:55 Cardiovascular: Positive for chest pain, of the chest. Exam: 23:55 Constitutional: This is a well developed, well nourished patient who is awake, alert, zaria and in no acute distress. Head/Face: Normocephalic, atraumatic. Eyes: Pupils equal round and reactive to light, extra-ocular motions intact. Lids and lashes normal. Conjunctiva and sclera are non-icteric and not injected. Cornea within normal limits. Periorbital areas with no swelling, redness, or edema. ENT: Nares patent. No nasal discharge, no septal abnormalities noted. Tympanic membranes are normal and external auditory canals are clear. Oropharynx with no redness, swelling, or masses, exudates, or evidence of obstruction, uvula midline. Mucous membranes moist. Neck: Trachea midline, no thyromegaly or masses palpated, and no cervical lymphadenopathy. Supple, full range of motion without nuchal rigidity, or vertebral point tenderness. No Meningismus. Chest/axilla: Normal chest wall appearance and motion. Nontender with no deformity. No lesions are appreciated. Cardiovascular: Regular rate and rhythm with a normal S1 and S2. No gallops, murmurs, or rubs. Normal PMI, no JVD. No pulse deficits. Respiratory: Lungs have equal breath sounds bilaterally, clear to auscultation and percussion. No rales, rhonchi or wheezes noted. No increased work of breathing, no retractions or nasal flaring. Abdomen/GI: Soft, non-tender, with normal bowel sounds. No distension or tympany. No guarding or rebound. No evidence of tenderness throughout. Back: No spinal tenderness. No costovertebral tenderness. Full range of motion. Male : Normal genitalia with no discharge or lesions. Skin: Warm, dry with normal turgor. Normal color with no rashes, no lesions, and no evidence of cellulitis. MS/ Extremity: Pulses equal, no cyanosis. Neurovascular intact. Full, normal range of motion. Neuro: Awake and alert, GCS 15, oriented to person, place, time, and situation. Cranial nerves II-XII grossly intact. Motor strength 5/5 in all extremities. Sensory grossly intact. Cerebellar exam normal. Normal gait. Psych: Awake, alert, with orientation to person, place and time. Behavior, mood, and affect are within normal limits. 23:55 ECG was reviewed by the Attending Physician. Vital Signs: 22:11 Pulse 92; Resp 18; Temp 98.1; Pulse Ox 100% on R/A; Weight 88.45 kg; Height 5 ft. 10 mb9 in. ; 22:11 BP 175 / 97; mb9 22:24 BP 139 / 98; Pulse 79; Resp 16; Temp 98.5(O); Pulse Ox 98% on R/A; aa9 02/25 00:46 BP 143 / 86; Pulse 72; Resp 17; Pulse Ox 98% on R/A; aa9 02/24 22:11 Body Mass Index 27.98 (88.45 kg, 177.8 cm) mb9 MDM: 02/24 22:27 Patient medically screened. zaria 23:56 Differential diagnosis: abnormal EKG, acute myocardial infarction, acute pericarditis, zaria anxiety, coronary artery disease chest wall pain, congestive heart failure hypertensive crisis, Malignant HTN. HEART Score: History: Slightly Suspicious (0), ECG: Non specific repolarization disturbance / LBTB / PM (1), Age: > 45 and < 65 years (1), Risk Factors: > or = 3 Risk factors for atherosclerotic disease (2), [Hypercholesterolemia] [Hypertension] [+ Family HX] Troponin: < or = 1 x Normal Limit (0). The patient was given aspirin in the Emergency Department. KAREN Risk Score: 1 - Three or more CAD risk factors, 1- Known CAD, 1 - ASA use in past 7 days. Data reviewed: vital signs, nurses notes, lab test result(s), EKG, radiologic studies, plain films. Consideration of Admission/Observation Escalation of care including admission/observation considered. Test considered but Not performed: CT: CT CHEST. 02/24 22:20 Order name: Basic Metabolic Panel; Complete Time: 23:52 kl 02/24 22:20 Order name: CBC with Diff; Complete Time: 23:52 02/24 22:20 Order name: Troponin HS; Complete Time: 23:52 02/24 22:21 Order name: LFT's; Complete Time: 23:52 [facility] 02/24 22:21 Order name: BNP; Complete Time: 23:52 [facility] 02/24 22:21 Order name: Lipase; Complete Time: 23:52 [facility] 02/24 22:21 Order name: PT-INR; Complete Time: 23:52 [facility] 02/24 22:21 Order name: Ptt, Activated; Complete Time: 23:52 [facility] 02/25 03:45 Order name: CBC with Automated Diff; Complete Time: 05:14 [facility] 02/25 03:57 Order name: Basic Metabolic Panel; Complete Time: 05:14 [facility] 02/25 03:57 Order name: Troponin High Sensitivity; Complete Time: 05:14 [facility] 02/25 04:04 Order name: Lipid Profile; Complete Time: 05:14 [facility] 02/25 08:57 Order name: Troponin High Sensitivity [facility] 02/24 22:20 Order name: XRAY Chest (1 view) 02/25 07:57 Order name: US [facility] 02/25 12:55 Order name: [facility] 02/24 22:20 Order name: EKG; Complete Time: 22: 02/24 22:20 Order name: Cardiac monitoring; Complete Time: : 02/24 22:20 Order name: EKG - Nurse/Tech; Complete Time: :34 02/24 22:20 Order name: IV Saline Lock; Complete Time: : 02/24 22:20 Order name: Labs collected and sent; Complete Time: : 02/24 22:20 Order name: O2 Per Protocol; Complete Time: : 02/24 22:20 Order name: O2 Sat Monitoring; Complete Time: :34 EC:55 Rate is 72 beats/min. Rhythm is regular. QRS [place] is Normal. RI interval is normal. QRS zaria interval is normal. QT interval is normal. No Q waves. T waves are Normal. No ST changes noted. Clinical impression: NSR w/ Non-specific ST/T Changes and No evidence of ischemia. Interpreted by me. Reviewed by me. Administered Medications: 22:37 Drug: Aspirin PO Chewable Tablet 162 mg Route: PO; 23:04 Follow up: Response: No adverse reaction 02/25 00:40 Drug: Metoprolol PO 50 mg Route: PO; 00:40 Drug: LORazepam PO 1 mg Route: PO; 00:40 Not Given (Patient Refused): Enoxaparin Sub-Q 1 mg/kg Sub-Q once aa9 Disposition Summary: 02/24/23 23:59 Hospitalization Ordered Hospitalization Status: Observation zaria Condition: Stable zaria Problem: new zaria Symptoms: have improved zaria Bed/Room Type: Standard zaria Provider: Abdi Chen(02/25/23 00:01) alfredo Location: [facility] ER HOLD(02/25/23 00:05) Room Assignment: ERHOLD-(02/25/23 00:05) Diagnosis - Essential (primary) hypertension zaria - Chest pain, unspecified zaria - Anxiety disorder, unspecified zaria Forms: - Medication Reconciliation Form zaria - SBAR form zaria Signatures: Dispatcher [employer] EDAndressa Edward RN RN kl Anderson, Corey, MD MD cha Attema, Lee, PHLEBOTOMIST LAB ASSISTANT-C PHLEBOTOMIST LAB ASSISTANT-Cla1 Xenia Smith RN RN cg Avalos, Aylin, RN RN [email or web address] Jessica Vincent RN RN mb9 Corrections: (The following items were deleted from the chart) 00:01 02/24 23:59 Panchito Neff cha la1 02/25 00:05 02/24 23:59 Telemetry/MedSurg (observation) [facility] 02/25 00:05 02/24 23:59 [facility]
--- NOTE | 2023-02-24 23:59 | ER ---
Nurse's Notes [facility] Name: Panchito Ramirez Age: 62 yrs Sex: Male : 1960 Arrival Date: 02/24/2023 Time: 22:05 Bed 15 Private MD: Diagnosis: Essential (primary) hypertension;Chest pain, unspecified;Anxiety disorder, unspecified Presentation: 02/24 22:11 Chief complaint: Patient states: "I had a heart attack 3-4 years ago and I'm edwardo mb9 having symptoms similar to when I had one. 4 days ago I started getting numb/tingling in the head, my ears hot, chest pain on the left side, and SOB. I took my BP medicine, Losartan 25mg, 45 minutes ago.". Coronavirus screen: At this time, the client does not indicate any symptoms associated with coronavirus-19. Ebola Screen: No symptoms or risks identified at this time. Initial Sepsis Screen: Does the patient meet any 2 criteria? No. Patient's initial sepsis screen is negative. Does the patient have a suspected source of infection? No. Patient's initial sepsis screen is negative. Risk Assessment: Do you want to hurt yourself or someone else? Patient reports no desire to harm self or others. Onset of symptoms was February 21, 2023. 22:11 Method Of Arrival: Ambulatory 9 22:11 Acuity: ION 3 mb9 Triage Assessment: 22:17 General: Appears in no apparent distress. Behavior is cooperative. General: Appears mb9 Behavior is anxious. Pain:. Neuro: Level of Consciousness is awake, alert, obeys commands, Oriented to person, place, time, situation, Appropriate for age. Cardiovascular: Reports chest pain, shortness of breath. Respiratory: Airway is patent Respiratory effort is even, unlabored, Respiratory pattern is regular, symmetrical. Derm: Skin is pink, warm \\T\\ dry. Musculoskeletal: Range of motion: intact in all extremities. Historical: - Allergies: 22:16 Codeine; mb9 - Home Meds: 22:16 atorvastatin 80 mg Oral tab 1 tab once daily [Active]; clopidogrel 75 mg Oral tab 1 tab mb9 once daily [Active]; Metoprolol Tartrate 12.5 MG Oral 2 times per day [Active]; losartan 25 mg oral tablet once [Active]; - PMHx: 22:16 Anxiety; High Cholesterol; Hypertension; NSTEMI; mb9 - PSHx: 22:16 Stented artery; mb9 - Immunization history:: Adult Immunizations up to date. - Social history:: Smoking status: Patient denies any tobacco usage or history of. Screenin/28 00:44 [facility] ED Fall Risk Assessment (Adult) History of falling in the last 3 months, aa9 including since admission No falls in past 3 months (0 pts) Confusion or Disorientation No (0 pts) Intoxicated or Sedated No (0 pts) Impaired Gait No (0 pts) Mobility Assist Device Used No (0 pt) Altered Elimination No (0 pt) Score/Fall Risk Level 0 - 2 = Low Risk Oriented to surroundings, Maintained a safe environment, Educated pt \\T\\ family on fall prevention, incl call for assistance when getting out of bed. Abuse screen: Denies threats or abuse. Denies injuries from another. Nutritional screening: No deficits noted. Tuberculosis screening: No symptoms or risk factors identified. Assessment: 02/24 22:25 General: Appears comfortable, well groomed, Behavior is cooperative, anxious. Pain: aa9 Denies pain. Neuro: Level of Consciousness is awake, alert, obeys commands, Oriented to person, place, time, situation. Respiratory: Airway is patent Respiratory effort is even, unlabored. 02/25 00:46 Pain: Pain does not radiate. aa9 00:46 Pain: Pain began 1 day ago. aa9 00:49 Reassessment: Patient appears in no apparent distress at this time. Patient and/or aa9 family updated on plan of care and expected duration. Pain level reassessed. Patient is alert, oriented x 3, equal unlabored respirations, skin warm/dry/pink. Vital Signs: 02/24 22:11 Pulse 92; Resp 18; Temp 98.1; Pulse Ox 100% on R/A; Weight 88.45 kg; Height 5 ft. 10 mb9 in. ; 22:11 BP 175 / 97; mb9 22:24 BP 139 / 98; Pulse 79; Resp 16; Temp 98.5(O); Pulse Ox 98% on R/A; aa9 02/25 00:46 BP 143 / 86; Pulse 72; Resp 17; Pulse Ox 98% on R/A; aa9 02/24 22:11 Body Mass Index 27.98 (88.45 kg, 177.8 cm) mb9 ED Course: 02/24 22:08 Patient arrived in ED. ja2 22:11 Arm band placed on. mb9 22:16 Triage completed. mb9 22:20 EKG done, by ED staff, reviewed by Kev Cat MD. Inserted saline lock: 20 gauge in mb9 left antecubital area, using aseptic technique. 22:24 Qing Garcia, DEIDRE is Primary Nurse. aa9 22:27 Kev Cat MD is Attending Physician. zraia 22:34 Ptt, Activated Sent. mb9 22:34 Basic Metabolic Panel Sent. mb9 22:34 CBC with Diff Sent. mb9 22:34 Troponin HS Sent. mb9 22:34 LFT's Sent. mb9 22:34 PT-INR Sent. mb9 22:34 Lipase Sent. mb9 22:34 BNP Sent. mb9 22:51 XRAY Chest (1 view) In Process Unspecified. EDNE 23:58 Panchito Neff MD is Hospitalizing Provider. [facility] 02/25 00:01 Abdi Chen MD is Hospitalizing Provider. la1 00:45 Patient has correct armband on for positive identification. Bed in low position. Side aa9 rails up X2. Pulse ox on. NIBP on. 00:45 No provider procedures requiring assistance completed. Patient maintains SpO2 aa9 saturation greater than 95% on room air. 00:46 Patient admitted, IV remains in place. aa9 Administered Medications: 02/24 22:37 Drug: Aspirin PO Chewable Tablet 162 mg Route: PO; mb9 23:04 Follow up: Response: No adverse reaction 9 02/25 00:40 Drug: Metoprolol PO 50 mg Route: PO; aa9 00:40 Drug: LORazepam PO 1 mg Route: PO; aa9 00:40 Not Given (Patient Refused): Enoxaparin Sub-Q 1 mg/kg Sub-Q once aa9 Medication: 02/24 22:17 VIS not applicable for this client. mb9 Outcome: 23:59 Decision to Hospitalize by Provider. [facility] 02/25 00:45 Admitted to ER Hold. Please see [facility] for further documentation. aa9 Condition: stable Instructed on the need for admit. 14:58 Patient left the ED. hb Signatures: Dispatcher [employer] EDMS Kev Cat MD MD zaria Attema, Elliott, PROPERTY APPRAISER-C PROPERTY APPRAISER-Cla1 June Crawford, RN RN Amy Roberson Aylin, RN RN aa9 Jessica Vincent RN RN mb9 Corrections: (The following items were deleted from the chart) 02/24 23:30 22:11 Acuity: ION 2 mb9 mb9
[2023-02-25] MEDS ORDERED: METOPROLOL TAR 50 MG TAB ONE (00:34)
[2023-02-25] MEDS ORDERED: ENOXAPARIN 80 MG/0.8 ML SQ ONE (00:35)
[2023-02-25] MEDS ORDERED: LORAZEPAM 1 MG TABLET ONE (00:35)
--- NOTE | 2023-02-25 00:52 | P.HP ---
Certification for Inpatient Patient admitted to: Observation With expected LOS: <2 Midnights Patient will require the following post-hospital care: None Practitioner: I am a practitioner with admitting privileges, knowledge of patient current condition, hospital course, and medical plan of care. Services: Services provided to patient in accordance with Admission requirements found in Title 42 Section 412.3 of the Code of Federal Regulations Patient History Date of Service: 02/25/23 Reason for admission: Chest pain History of Present Illness: 62-year-old male with history of hypertension, hyperlipidemia, CAD, anxiety presents to the emergency department with chief complaint of chest pain, hypertension. He reports over the course last 2 days he has had intermittent chest pain described as tightness radiating to the left arm/left neck not exacerbated or relieved by anything particular. He had a heart catheterization with stent placement in 2018, has had multiple stress test since the last one about a year ago. Initial high-sensitivity troponin negative EKG without STEMI criteria present chest x-ray unremarkable, ED provider wishes to admit under observation for ACS rule out. Allergies No Known Allergies Allergy (Unverified 04/28/18 08:49) Home Medications: Atorvastatin Calcium [Lipitor] 80 mg PO BEDTIME #30 tab 04/25/18 Clopidogrel Bisulfate [Plavix*] 75 mg PO DAILY #30 tablet 04/25/18 Metoprolol Tartrate [Lopressor*] 12.5 mg PO BID 6AM 6PM #60 tab 04/25/18 Pantoprazole [Protonix Tab*] 40 mg PO DAILYAC #30 tab 04/25/18 Aspirin [Aspirin EC 81 MG] 81 mg PO DAILY #30 tablet.dr 04/28/18 Nitroglycerin 0.4 mg SL Q5MX3, Q15MX1, Q30M PRN #30 tab.subl 04/28/18 - Past Medical/Surgical History Diabetic: No -: Hypertension -: Hyperlipidemia -: CAD -: Anxiety -: None Psychosocial/ Personal History: The patient is single. He has no children. He currently is self-employed, cares for his mother at home. - Family History Brother -: Heart disease, Hypertension Father -: Heart disease, Stroke, Other (see notes) Notes: [place] - Social History Smoking Status: Never smoker Alcohol use: No CD- Drugs: No Caffeine use: No Place of Residence: Home Review of Systems 10-point ROS is otherwise unremarkable Cardiovascular: Chest Pain Physical Examination - Physical Exam General: Alert, In no apparent distress, Oriented x3 HEENT: Atraumatic, PERRLA, Mucous membr. moist/pink, EOMI, Sclerae nonicteric Neck: Supple, 2+ carotid pulse no bruit, No LAD, Without JVD or thyroid a bnormality Respiratory: Clear to auscultation bilaterally, Normal air movement Cardiovascular: Regular rate/rhythm, Normal S1 S2 Gastrointestinal: Normal bowel sounds, No tenderness Musculoskeletal: No tenderness Integumentary: No rashes Neurological: Normal gait, Normal speech, Normal strength at 5/5 x4 extr, Normal tone, Normal affect Lymphatics: No axilla or inguinal lymphadenopathy - Studies Laboratory Data (last 24 hrs) 02/24/23 22:32: PT 10.9, INR 0.99, APTT 31.6 02/24/23 22:32: Total Bilirubin 2.1 H, AST 41 H, ALT 61, Alkaline Phosphatase 117, Lipase 36 02/24/23 22:32: WBC 7.80, Hgb 15.3, Hct 46.3, Plt Count 249 02/24/23 22:32: Sodium 137, Potassium 3.6, BUN 10, Creatinine 0.94, Glucose 106 Assessment and Plan - Plan Assessment: Chest pain rule out ACShistory of CAD Hypertension Hyperlipidemia Plan: Chest pain rule out ACShistory of CAD Trend troponin, monitor on telemetry, cardiology consult. Continue aspirin, Plavix, statin, beta-wenceslao. As needed nitro/morphine. Hypertension Continue metoprolol Hyperlipidemia Continue atorvastatin. DVT PPX: Lovenox Code status: Full Discharge Plan: Home Plan to discharge in: 24 Hours - Advance Directives Does patient have a Living Will: No Does patient have a Durable POA for Healthcare: No - Code Status/Comfort Care Code Status Assessed: Yes (Full code) Critical Care: No Time Spent Managing Pts Care (In Minutes): 55
[2023-02-25] MEDS ORDERED: ONDANSETRON 4 MG/2 ML VIAL IV PRN (01:01)
[2023-02-25] MEDS ORDERED: MORPHINE 2 MG/ML SYR IV PRN (01:01)
[2023-02-25] MEDS ORDERED: NITROGLYCERIN 0.4 MG/TAB SL PRN (01:01)
[2023-02-25 01:11] VITALS: BMI 27.8
[2023-02-25 03:39] LABS: Absolute Lymphocytes (CBC) 2.1 K/uL (0.7-4.9); Hematocrit 46.9 % (39.6-49.0); MCV 87.1 fL (80-100); MPV 8.5 fL (7.6-11.3); RBC Red Blood Cell Count 5.38 M/uL (4.33-5.43)
[2023-02-25 03:57] LABS: Potassium 3.6 mEq/L (3.5-5.1); Troponin High Sensitivity 6.5 pg/mL (<58.9)
[2023-02-25] MEDS ORDERED: METOPROLOL TAR 25 MG TAB PO SCH (06:00)
[2023-02-25] MEDS ORDERED: METOPROLOL TAR 25 MG TAB ONE ×2 (06:43→08:48)
--- NOTE | 2023-02-25 07:00 | EKG ---
Test Date: 2023-02-24 Test Time: 22:33:14 Plasma Processor: LOUIE MEASUREMENT RESULTS: Intervals: Rate: 72 ME: 136 QRSD: 90 QT: 396 QTc: 433 [place]: P: 56 ME: 136 QRS: 64 T: 26 INTERPRETIVE STATEMENTS: Normal sinus rhythm ST abnormality, possible digitalis effect Abnormal ECG Compared to ECG 07/13/2022 00:32:28 ST (T wave) deviation now present Myocardial infarct finding no longer present Electronically Signed On 02-25-23 06:59:41 CDT by Elie Judge
--- NOTE | 2023-02-25 07:57 | RAD REPORT ---
EXAM DESCRIPTION: US - Liver Only - 02/25/2023 1:51 am CLINICAL HISTORY: Elevated LFT COMPARISON: No comparisons TECHNIQUE: Sonographic grayscale and color flow images of the liver and spleen were obtained. FINDINGS: The gallbladder demonstrates no gallstones. No pericholecystic fluid or gallbladder wall t hickening. The common bile duct is normal measuring 4 mm. The liver demonstrates diffuse increased parenchymal echogenicity, with slightly heterogeneous parenc hyma. No surface nodularity. No appreciable focal lesions although evaluation is limited by poor pene tration. No findings of intrahepatic biliary dilatation. Visualization of the midline structures including the pancreas is limited by over shadowing bowel gas . Spleen is normal in appearance, measuring 10 centimeter in long axis. No focal lesions. IMPRESSION: Diffuse hepatic parenchymal hyperechogenicity suggesting steatosis nor medical hepatocel lular disease. No other acute findings.
[2023-02-25] MEDS ORDERED: ASPIRIN EC 81 MG TAB PO ONE (08:48)
[2023-02-25] MEDS ORDERED: ENOXAPARIN 40 MG/0.4 ML SQ ONE (08:48)
[2023-02-25] MEDS ORDERED: CLOPIDOGREL 75 MG TABLET ONE (08:48)
[2023-02-25] MEDS ORDERED: ENOXAPARIN 40 MG/0.4 ML SQ SCH (09:00)
[2023-02-25] MEDS ORDERED: ASPIRIN EC 81 MG TAB PO SCH (09:00)
[2023-02-25] MEDS ORDERED: CLOPIDOGREL 75 MG TABLET PO SCH (09:00)
[2023-02-25] MEDS ORDERED: REGADENOSON 0.4 MG/5 ML SYR IV ONE (09:40)
[2023-02-25 12:31] VITALS: BP 124/78; TEMP 98.1
--- NOTE | 2023-02-25 12:55 | RAD REPORT ---
EXAM DESCRIPTION: NM - Rest Stress Cardiac Imaging - 02/25/2023 12:40 pm CLINICAL HISTORY: CP Chest pain. COMPARISON: Rest Stress Cardiac Imaging dated 04/28/2018 TECHNIQUE: The patient was administered approximately 10.4 mCi of Tc 99m Sestamibi prior to resting SPECT imaging of the heart. The patient was then administered approximately 29.7 mCi of Tc 99m Sestam ibi following exercise or pharmacologic stress. Multiplanar SPECT images were reviewed. FINDINGS: No stress induced ischemic defect is seen to suggest stress induced ischemia. Moderate fix ed defect involving the anterior wall mid to apical segments, extending along the junction with the s eptum, more pronounced on the rest compared to the stress images, could be artifactual or related to a region of prior infarct. The end diastolic volume is 56 ml, the end systolic volume is 20 ml, and the ejection fraction is 64 %. IMPRESSION: No scintigraphic evidence of stress induced ischemia. Moderate fixed defect of the anterior wall as above, could be artifactual given reduced end-diastolic and end systolic volumes, alternatively this could be related to a region of prior infarct. Normal left ventricular ejection fraction.
[2023-02-25 15:08] VITALS: O2SAT 98
[2023-02-25] MEDS ORDERED: ATORVASTATIN 40 MG TAB PO SCH (21:00)
[2023-02-25] MEDS ORDERED: ATORVASTATIN 80 MG TAB PO SCH (21:00)
--- NOTE | 2023-02-25 23:46 | CON ---
Date of Consultation: 02/25/2023 Reason For Consultation: Atypical chest pain. History Of Present Illness: Mr. Ramirez is a patient of Dr. Adeel Huynh in [place]. Has a strong f amily history of heart disease. Has a history of CAD, status post PCIs in the past. He has a histor y of hypertension, dyslipidemia. Came in with basically left arm pain, atypical pain, severe hyperte nsion, diaphoresis. No nausea or vomiting. Denied PND, orthopnea, or pedal edema. He denied any pa lpitations or syncope. Denied any fever or chills. [place] has been ruled out. He is asymptomatic now. Allergies: NONE. Review of Systems: Negative. Social History: Negative. Family History: Positive for heart disease in his brother. Medications: Include metoprolol, Protonix, aspirin, Lipitor, Plavix. Physical Examination: Vital Signs: Stable. Afebrile. HEENT: Negative. Neck: Supple with no bruit. Chest: Clear to auscultation and percussion. Cardiac: Revealed a regular rhythm and rate. No murmurs, gallops, or rubs. Abdomen: Benign. Extremities: Revealed no clubbing, cyanosis, or edema. Diagnostic Data: Normal. Impression And Plan: Patient with the history of coronary artery disease, ruled out for myocardial i nfarction. EKG is unremarkable. Asymptomatic now. Negative troponin. Negative BNP. Has a family history of heart disease, hypertension, dyslipidemia. He had coronary artery disease. He has had st ents before. I think Mr. Ramirez needs to have a stress test done today before we decide his course. He understands the plan. We will continue to follow him. No change in medical therapy for now. Wh en he goes home, we may have to go up on his beta-wenceslao dose because his blood pressure was very po surinder controlled. NB/MODL Voice ID: [id number] Report ID: [id number]
--- NOTE | 2023-02-26 07:00 | P.DS ---
Admission Date: 02/25/23 Discharge Date: 02/25/23 Disposition: ROUTINE DISCHARGE Discharge Condition: GOOD Reason for Admission: Chest pain Consultations: Cardiology - Dr. Judge Brief History of Present Illness: 62-year-old male with history of hypertension, hyperlipidemia, CAD, anxiety presents to the emergency department with chief complaint of chest pain, hypertension. He reports over the course last 2 days he has had intermittent chest pain described as tightness radiating to the left arm/left neck not exacerbated or relieved by anything particular. He had a heart catheterization with stent placement in 2018, has had multiple stress test since the last one about a year ago. Initial high-sensitivity troponin negative EKG without STEMI criteria present chest x-ray unremarkable, ED provider wishes to admit under observation for ACS rule out. Hospital Course: Problem List: Chest pain rule out ACShistory of CAD Hypertension Hyperlipidemia Patient presented with chest pain and reported episodes of hypertension at home. EKG, troponins were negative. Dr. Judge recommended stress testing which was negative for stress induced ischemia. Blood pressure remained normal 110s-130/60-70s throughout hospitalization. Follow up with PCP within 1 week Cardiology in a few weeks Continue home meds as prescribed, no changes. Physical Exam General: Alert, In no apparent distress, Oriented x3 HEENT: Atraumatic, PERRLA, Mucous membr. moist/pink, EOMI, Sclerae nonicteric Neck: Supple, 2+ carotid pulse no bruit, No LAD, Without JVD or thyroid abnormality Respiratory: Clear to auscultation bilaterally, Normal air movement Cardiovascular: Regular rate/rhythm, Normal S1 S2 Gastrointestinal: Normal bowel sounds, No tenderness Musculoskeletal: No tenderness Integumentary: No rashes Neurological: Normal gait, Normal speech, Normal strength at 5/5 x4 extr, Normal tone, Normal affect Lymphatics: No axilla or inguinal lymphadenopathy Vital Signs/Physical Exam: Temp Pulse Resp BP Pulse Ox 98.1 F 62 16 124/78 98 02/25/23 12:00 02/25/23 12:00 02/25/23 12:00 02/25/23 12:00 02/25/23 12:00 Laboratory Data at Discharge: WBC 8.90 thou/uL (4.3-10.9) 02/25/23 01:51 Hgb 15.7 g/dL (13.6-17.9) 02/25/23 01:51 Hct 46.9 % (39.6-49.0) 02/25/23 01:51 Plt Count 259 thou/uL (152-406) 02/25/23 01:51 PT 10.9 SECONDS (9.5-12.5) 02/24/23 22:32 INR 0.99 02/24/23 22:32 APTT 31.6 SECONDS (24.3-36.9) 02/24/23 22:32 Sodium 139 mEq/L (136-145) 02/25/23 01:51 Potassium 3.6 mEq/L (3.5-5.1) 02/25/23 01:51 BUN 9 mg/dL (7-18) 02/25/23 01:51 Creatinine 0.82 mg/dL (0.70-1.30) 02/25/23 01:51 Glucose 96 mg/dL (74-106) 02/25/23 01:51 Total Bilirubin 2.1 mg/dL (0.2-1.0) H 02/24/23 22:32 AST 41 U/L (15-37) H 02/24/23 22:32 ALT 61 U/L (16-61) 02/24/23 22:32 Alkaline Phosphatase 117 U/L (45-117) 02/24/23 22:32 Triglycerides 97 mg/dL (<150) 02/25/23 01:51 Cholesterol 103 mg/dL (<200) 02/25/23 01:51 HDL Cholesterol 50 mg/dL (40-60) 02/25/23 01:51 Cholesterol/HDL Ratio 2.06 02/25/23 01:51 Lipase 36 U/L (13-75) 02/24/23 22:32 Home Medications: Atorvastatin Calcium [Lipitor] 80 mg PO BEDTIME #30 tab 04/25/18 Clopidogrel Bisulfate [Plavix*] 75 mg PO DAILY #30 tablet 04/25/18 Metoprolol Tartrate [Lopressor*] 12.5 mg PO BID 6AM 6PM #60 tab 04/25/18 Pantoprazole [Protonix Tab*] 40 mg PO DAILYAC #30 tab 04/25/18 Aspirin [Aspirin EC 81 MG] 81 mg PO DAILY #30 tablet. 04/28/18 Nitroglycerin 0.4 mg SL Q5MX3, Q15MX1, Q30M PRN #30 tab.subl 04/28/18 Physician Discharge Instructions: Patient presented with chest pain and reported episodes of hypertension at home. EKG, troponins were negative. Dr. Judge recommended stress testing which was negative for stress induced ischemia. Blood pressure remained normal 110s-130/60-70s throughout hospitalization. Follow up with PCP within 1 week Cardiology in a few weeks Continue home meds as prescribed, no changes. Followup: NONE,NONE [Primary Care Provider] -
--- NOTE | 2023-02-26 14:21 | RAD REPORT ---
EXAM DESCRIPTION: RAD - Chest Single View - 02/24/2023 10:49 pm CLINICAL HISTORY: CHEST PAIN. COMPARISON: Chest radiograph from July 13, 2022. TECHNIQUE: Single view AP chest radiograph(s). FINDINGS: No pulmonary infiltrate identified. No pleural effusion. No pneumothorax. Nonenlarged card iomediastinal silhouette. No significant osseous abnormality. IMPRESSION: No acute cardiopulmonary abnormality identified by radiograph. Electronically signed by: Bea Turner MD 02/24/2023 11:06 PM CDT Due to temporary technical issues with the PACS/Fluency reporting system, reports are being signed by the in house radiologists without review as a courtesy to insure prompt reporting. The interpreting radiologist is fully responsible for the content of the report.
--- NOTE | 2023-02-28 07:20 | TREADPHA ---
DX: CHEST PAIN Date of Study: 02/25/2023 Ht: 5' 10 " Wt: 195 lb 0 oz Consulting Physician: RAVI MEDICATIONS: ASPIRIN, LIPITOR, PLAVIX, LOVENOX, LOPRESSOR, NITROSTAT HISTORY: 62 YEAR OLD MALE WITH COMPLAINTS OF CHEST PAIN AND HYPERTENSION. HISTORY OF CONGESTIVE HEART FAILURE, HYPERTENSION, CORONARY ARTERY DISEASE AND ANXIETY. PATIENT DENIES ALLERGIES. PHYSICIAL EXAMINATION: RESTING B.P.: 143/91 RESTING H.R.: 70 RESTING EKG: NORMAL SINUS RHYTHM WITH ST DEPRESSION, INFERIOR LEAD. PROTOCOL: LEXISCAN EXERCISE TIME: 3:30 B.P. AT PEAK STRESS: 116/72 IMPRESSION: LEXISCAN INJECTED. CARDIOLITE INJECTED. SEE NUCLEAR MEDICINE REPORT. NO SUPRAVENTRICULAR OF VENTRICULAR TACHYCARDIA. NO PREMATURE VENTRICULAR COMPLEXES. NO PREMATURE ATRIAL COMPLEXES. PATIENT DENIES CHEST PAIN. PATIENT STATES SLIGHT HEADACHE. NO EKG CHANGES OF ISCHEMIA WITH LEXISCAN.
== END 2023-02-25 14:58 | disposition home or self-care (01) ==
LOC: ER 22:05 → ERHOLD 02-25 00:03
PROVIDERS: ADMIT Hospitalist; ATTEND Hospitalist
DX: R07.9 Chest pain, unspecified (principal); I25.10 Atherosclerotic heart disease of native coronary artery without angina pectoris; I10 Essential (primary) hypertension; E78.5 Hyperlipidemia, unspecified; F41.9 Anxiety disorder, unspecified; Z82.49 Family history of ischemic heart disease and other diseases of the circulatory system
CPT/HCPCS: 36415; 71045; 76705; 78452; 80048; 80061; 80076; 83690; 83880; 84484; 85025; 85610; 85730; 93005; 93017; A9500; G0378; J1650; J2785

== ENCOUNTER 2024-02-20 18:36 | Emergency (ER) | payer SELFPAY ==
--- NOTE | 2024-02-20 19:21 | EDPHYS ---
Physician Documentation [facility] Name: Panchito Ramirez Age: 63 yrs Sex: Male : 1960 Arrival Date: 02/20/2024 Time: 18:36 Bed IW1 Private MD: ED Physician Sandip Chen HPI: 02/19 19:13 This 63 yrs old Male presents to ER via Ambulatory with complaints of Chest pain. rn 19:13 The patient or guardian reports chest pain that is located primarily in the anterior rn chest wall, left. Onset: 3 day(s) ago. The pain does not radiate. The chest pain is described as aching. Duration: The patient or guardian reports multiple episodes, that are intermittent. Modifying factors: The symptoms are alleviated by nothing. the symptoms are aggravated by nothing. Severity of pain: At its worst the pain was mild in the emergency department the pain has improved. The patient has experienced a previous episode. Patient reports 2 to 3 days of intermittent left-sided chest pain, nonradiating, not associated with diaphoresis or nausea. Patient reports associated with left eye twitching, tingling of the lower extremities, aching of bilateral upper extremities. Denies trauma. Patient reports this feels different from a few years ago when needed a cardiac stent. He has had multiple cardiac workups including stress tests and heart cath in the past. [facility] sees computer systems design analyst at [facility].. Historical: - Allergies: 18:49 Codeine; ko1 - Home Meds: 18:49 atorvastatin 80 mg Oral tab 1 tab once daily [Active]; clopidogrel 75 mg Oral tab 1 tab ko1 once daily [Active]; Metoprolol Tartrate 12.5 MG Oral 2 times per day [Active]; - PMHx: 18:49 Anxiety; High Cholesterol; Hypertension; NSTEMI; ko1 - PSHx: 18:49 Stented artery; ko1 - Immunization history:: Adult Immunizations up to date. - Infectious Disease History:: Denies. - Social history:: Smoking status: Patient denies any tobacco usage or history of. - Family history:: not pertinent. - Hospitalizations: : No recent hospitalization is reported. ROS: 19:13 Constitutional: Negative for fever, chills, and weight loss, Cardiovascular: Positive rn for chest pain Respiratory: Positive for intermittent shortness of breath Abdomen/GI: Negative for abdominal pain, nausea, vomiting, diarrhea, and constipation, MS/Extremity: Negative for injury and deformity, Skin: Negative for injury, rash, and discoloration, Neuro: Positive for tingling to all extremities. Exam: 19:13 Constitutional: This is a well developed, well nourished patient who is awake, alert, rn and in no acute distress. Cardiovascular: Regular rate and rhythm. No pulse deficits. Respiratory: Speaking full sentences, unlabored. No increased work of breathing, no retractions or nasal flaring. Abdomen/GI: Soft, non-tender MS/ Extremity: Pulses equal, no cyanosis. Neurovascular intact. Full, normal range of motion. Equal circumference. Neuro: Awake and alert, GCS 15, oriented to person, place, time, and situation. Vital Signs: 18:45 BP 158 / 90; Pulse 78; Resp 18; Temp 97.7; Pulse Ox 100% on R/A; ko1 MDM: 18:43 Patient medically screened. rn 19:13 ED course: After evaluating patient I recommended cardiac workup including EKG, chest rn x-ray, blood work and possible admission. Did speak to patient regarding our [employer] being down and inability to do stress tests without nuclear medicine available at this time. Also told him that at the end of the evaluation if we feel like this is cardiac in nature, due to inability to perform interventional catheterization at this hospital at this time, may require transfer. Patient states needs a moment to discuss all of this with family. He returned and notified triage nurse that he does not want to be seen and will wait to see if symptoms change or worsen. He did not notify whether he is going somewhere else or coming back later. Patient understands risks of not undergoing further evaluation here especially with cardiac history. Patient chose to leave on his own free will.. Administered Medications: No medications were administered Disposition Summary: 02/20/24 19:21 Eloped Notes: Disposition: after being seen by provider rn Problem: new rn Symptoms: have improved rn Reason: unknown rn Condition: Stable rn Diagnosis - Chest pain, unspecified rn Followup: rn - With: Gordon Reed MD - When: As needed - Reason: Recheck today's complaints, Re-evaluation by your physician Signatures: Chen, Sandip, MD MD rn Luis, Rakel, RN RN ko1
--- NOTE | 2024-02-20 19:21 | ER ---
Nurse's Notes [facility] Name: Panchito Ramirez Age: 63 yrs Sex: Male : 1960 Arrival Date: 02/20/2024 Time: 18:36 Bed IW1 Private MD: Diagnosis: Chest pain, unspecified Presentation: 02/19 18:45 Chief complaint: Patient states: chest tightness started a few days ago, comes and ko1 goes, bp has been up and down today, left jaw and arm feel "numby". Coronavirus screen: At this time, the client does not indicate any symptoms associated with coronavirus-19. Ebola Screen: No symptoms or risks identified at this time. Initial Sepsis Screen: Does the patient meet any 2 criteria? No. Patient's initial sepsis screen is negative. Does the patient have a suspected source of infection? No. Patient's initial sepsis screen is negative. Risk Assessment: Do you want to hurt yourself or someone else? Patient reports no desire to harm self or others. Onset of symptoms was February 20, 2024. 18:45 Method Of Arrival: Ambulatory ko1 18:45 Acuity: ION 3 ko1 Triage Assessment: 18:49 General: Appears in no apparent distress. Behavior is calm, cooperative, appropriate ko1 for age. Pain: Complains of pain in anterior aspect of left upper chest. Cardiovascular: Reports chest pain, shortness of breath. Historical: - Allergies: 18:49 Codeine; ko1 - Home Meds: 18:49 atorvastatin 80 mg Oral tab 1 tab once daily [Active]; clopidogrel 75 mg Oral tab 1 tab ko1 once daily [Active]; Metoprolol Tartrate 12.5 MG Oral 2 times per day [Active]; - PMHx: 18:49 Anxiety; High Cholesterol; Hypertension; NSTEMI; ko1 - PSHx: 18:49 Stented artery; ko1 - Immunization history:: Adult Immunizations up to date. - Infectious Disease History:: Denies. - Social history:: Smoking status: Patient denies any tobacco usage or history of. - Family history:: not pertinent. - Hospitalizations: : No recent hospitalization is reported. Screenin:55 [facility] ED Fall Risk Assessment (Adult) History of falling in the last 3 months, mb9 including since admission No falls in past 3 months (0 pts) Confusion or Disorientation No (0 pts) Intoxicated or Sedated No (0 pts) Impaired Gait No (0 pts) Mobility Assist Device Used No (0 pt) Altered Elimination No (0 pt) Score/Fall Risk Level 0 - 2 = Low Risk Oriented to surroundings, Maintained a safe environment, Educated pt \\T\\ family on fall prevention, incl call for assistance when getting out of bed. Abuse screen: Denies threats or abuse. Nutritional screening: No deficits noted. Tuberculosis screening: No symptoms or risk factors identified. Vital Signs: 18:45 BP 158 / 90; Pulse 78; Resp 18; Temp 97.7; Pulse Ox 100% on R/A; ko1 ED Course: 18:38 Patient arrived in ED. im 18:43 Sandip Chen MD is Attending Physician. rn 18:49 Triage completed. ko1 18:49 Arm band placed on right wrist. Patient placed in an exam room, on a stretcher, on ko1 hog stomach preparer, on pulse oximetry, Patient notified of wait time. 18:54 Placed in gown. Bed in low position. Call light in reach. Side rails up X 1. Provided mb9 Education on: press call light if needing anything. Client placed on continuous cardiac and pulse oximetry monitoring. NIBP monitoring applied. student career development specialist on. Door closed. Noise minimized. Warm blanket given. 18:58 No provider procedures requiring assistance completed. mb9 19:21 Gordon Reed MD is Referral Physician. rn Administered Medications: No medications were administered Medication: 18:55 VIS not applicable for this client. mb9 Outcome: 19:05 Eloped after seeing physician Time discovered patient gone: February 20, 2024 at 19:05 km8 19:22 Patient left the ED. km8 Signatures: Sandip Chen MD MD rn Oliver, Kathy RN RN ko1 Jessica Vincent RN RN mb9 Kerline Bernardo Annette Brown RN RN km8 Corrections: (The following items were deleted from the chart) 19:23 19:05 Eloped Time discovered patient gone: February 20, 2024 at 19:05 km8 km8
[2024-02-20 19:56] VITALS: BP 158/90; TEMP 97.7; O2SAT 100
== END 2024-02-20 19:22 | disposition left against medical advice (07) ==
LOC: ER 18:36
DX: R07.9 Chest pain, unspecified (principal); I10 Essential (primary) hypertension; I25.2 Old myocardial infarction; Z88.5 Allergy status to narcotic agent
CPT/HCPCS: 99284

== ENCOUNTER 2024-02-21 00:27 | Emergency (ER) | payer SELFPAY ==
[2024-02-21] MEDS ORDERED: ASPIRIN 81 MG CHEWABLE TABLET ONE (00:57)
[2024-02-21 01:35] LABS: Absolute Basophils 0.1 K/uL (0-0.5); Absolute Eosinophils 0.1 K/uL (0-0.5); Absolute Lymphocytes (CBC) 2.1 K/uL (0.7-4.9); Absolute Monocytes 0.5 K/uL (0.1-1.3); Absolute Neutrophil 5.5 K/uL (1.8-8.0); Basophils % 0.7 % (0-1.3); Eosinophils % 1.4 % (0-4.4); Hemoglobin 15.5 g/dL (13.6-17.9); Lymphocytes % 24.8 % (15.3-44.8); MCH 29.5 pg (27.0-35.0); MCHC 33.7 g/dL (32.0-36.0); MCV 87.6 fL (80-100); MPV 8.5 fL (7.6-11.3); Monocytes % 6.6 % (3.3-12.3); Neutrophils % 66.5 % (41.7-73.7); Nucleated Red Blood Cells % 0.2 % (0-0); Platelets 241 thou/uL (152-406); RBC Red Blood Cell Count 5.25 M/uL (4.33-5.43); Red Cell Distribution Width 13.7 % (12.1-15.2)
[2024-02-21 01:49] LABS: Albumin 4.1 g/dL (3.4-5.0); Albumin/Globulin Ratio 1.4 (1.1-1.8); Anion Gap 6.8 mEq/L (5.0-15.0); Bilirubin Direct 0.5 mg/dL (0-0.2); Bilirubin Indirect, Calculated 1.8 mg/dL (0.2-0.8); Bilirubin Total 2.3 mg/dL (0.2-1.0); Globulin 2.9 g/dL (2.3-3.5); Magnesium 2.1 mg/dL (1.6-2.4); Potassium 3.8 mEq/L (3.5-5.1); Troponin High Sensitivity 4.1 pg/mL (<58.9)
--- NOTE | 2024-02-21 03:36 | EDPHYS ---
Physician Documentation [facility] Name: Panchito Ramirez Age: 63 yrs Sex: Male : 1960 Arrival Date: 02/21/2024 Time: 00:27 Bed 15 Private MD: ED Physician Gricelda Montiel HPI: 02/20 00:50 This 63 yrs old Male presents to ER via Ambulatory with complaints of Chest Pain, Arm cp Pain, High Blood Pressure - was here prior and er dr requested blood work. 00:50 The patient or guardian reports chest pain that is located primarily in the anterior cp chest wall, left. 00:50 Onset: 3 day(s) ago. The pain does not radiate. cp 00:50 Duration: The patient or guardian reports multiple episodes, that wax and wane. cp Historical: - Allergies: 00:39 Codeine; jb4 - PMHx: 00:39 Anxiety; High Cholesterol; Hypertension; NSTEMI; jb4 - PSHx: 00:39 Stented artery; jb4 - Immunization history:: Adult Immunizations not up to date. - Infectious Disease History:: Denies. - Social history:: Smoking status: Patient denies any tobacco usage or history of. ROS: 00:52 Constitutional: Negative for body aches, chills, fever, poor PO intake, cp 00:52 Eyes: Negative for injury, pain, redness, and discharge, cp 00:52 Cardiovascular: Positive for chest pain, Negative for edema, palpitations, 00:52 Respiratory: Negative for cough, shortness of breath, wheezing, 00:52 Abdomen/GI: Negative for vomiting, diarrhea, constipation, Exam: 00:53 ECG was reviewed by the Attending Physician. cp 00:55 Constitutional: The patient appears in no acute distress, alert, awake, cp non-diaphoretic, non-toxic, well developed, well nourished, anxious, 00:55 Head/Face: Normocephalic, atraumatic. cp 00:55 Eyes: Periorbital structures: appear normal, Conjunctiva: normal, no exudate, no injection, Sclera: no appreciated abnormality, Lids and lashes: appear normal, bilaterally, 00:55 ENT: External ear(s): are unremarkable, Nose: is normal, Mouth: Lips: moist, Oral mucosa: pink and intact, moist, Posterior pharynx: Airway: no evidence of obstruction, patent, 00:55 Chest/axilla: Inspection: normal, 00:55 Cardiovascular: Rate: normal, Rhythm: regular, Edema: is not appreciated, JVD: is not appreciated, 00:55 Respiratory: the patient does not display signs of respiratory distress, Respirations: normal, no use of accessory muscles, no retractions, labored breathing, is not present, Breath sounds: are clear throughout, no decreased breath sounds, no stridor, no wheezing, 00:55 Abdomen/GI: Inspection: abdomen appears normal, Palpation: abdomen is soft and non-tender, in all quadrants, Vital Signs: 00:36 Resp 16; Weight 88.45 kg (R); Height 5 ft. 10 in. ; Pain 2/10; jb4 01:05 BP 143 / 86 LA Sitting (auto/reg); bm8 01:05 BP 149 / 95 RA Sitting (auto/reg); bm8 02:00 BP 131 / 80; Pulse 59; Resp 16; Pulse Ox 95% ; jj7 03:00 BP 134 / 79; Pulse 59; Resp 16; Pulse Ox 99% ; jj7 03:45 BP 128 / 80; Pulse 61; Resp 17; Temp 97.6; Pulse Ox 100% ; Pain 0/10; jj7 00:36 Body Mass Index 27.98 (88.45 kg, 177.8 cm) jb4 00:36 Pain Scale: Adult jb4 03:45 Pain Scale: Adult jj7 [place] Coma Score: 01:05 Eye Response: spontaneous(4). Motor Response: obeys commands(6). Verbal Response: bm8 oriented(5). Total: 15. MDM: 00:37 Patient medically screened. cp 01:00 Differential diagnosis: acute myocardial infarction, acute pericarditis, pneumonia, cp pneumothorax, pulmonary embolus, stable angina, thoracic aortic disection, unstable angina. 01:15 The patient was given aspirin in the Emergency Department. cp 04:39 Data reviewed: vital signs, nurses notes. ci 02/20 00:49 Order name: Basic Metabolic Panel; Complete Time: 01:54 cp 02/20 01:55 Interpretation: Normal except: GLUC 122; GFR 89. cp 02/20 00:49 Order name: CBC with Diff; Complete Time: 01:54 cp 02/20 00:49 Order name: LFT's; Complete Time: 01:54 cp 02/20 01:55 Interpretation: Normal except: BILIT 2.3; BILID 0.5; IBILI, CALC 1.8. cp 02/20 00:49 Order name: Magnesium; Complete Time: 01:54 cp 02/20 00:49 Order name: NT PRO-BNP; Complete Time: 01:54 cp 02/20 00:49 Order name: Troponin HS; Complete Time: 01:54 cp 02/20 01:55 Interpretation: Reviewed. cp 02/20 02:08 Order name: Troponin High Sensitivity; Complete Time: 03:35 cp 02/20 00:49 Order name: XRAY Chest (1 view) cp 02/20 00:49 Order name: EKG; Complete Time: 00:50 cp 02/20 00:49 Order name: Cardiac monitoring; Complete Time: 01:04 cp 02/20 00:49 Order name: EKG - Nurse/Tech; Complete Time: 01:04 cp 02/20 00:49 Order name: IV Saline Lock; Complete Time: 01:04 cp 02/20 00:49 Order name: Labs collected and sent; Complete Time: 01:04 cp 02/20 00:49 Order name: O2 Per Protocol; Complete Time: 01:04 cp 02/20 00:49 Order name: O2 Sat Monitoring; Complete Time: 01:04 cp 02/20 00:55 Order name: Blood Pressure Recheck: bilateral upper extremity; Complete Time: 01:04 cp EC:53 Rate is 66 beats/min. Rhythm is regular. VA interval is normal. QRS interval is normal. cp QT interval is normal. T waves are Inverted in lead aVR. Interpreted by me. Reviewed by me. Administered Medications: 00:59 Drug: Aspirin PO Chewable Tablet 324 mg PO once; 81 mg tablets x 4 Route: PO; bm8 02:00 Follow up: Response: No adverse reaction jj7 Disposition: 04:40 Co-signature as Attending Physician, Gricelda Montiel I agree with the assessment ci and plan of care. I reviewed the patient's care provided by the Advanced Practice Provider and agree with the diagnosis and treatment plan. Disposition Summary: 02/21/24 03:36 Discharge Ordered Notes: Location: Home ci Problem: new ci Symptoms: have improved ci Condition: Stable ci Diagnosis - Chest pain, unspecified ci Followup: cp - With: Private Physician - When: 1 - 2 days - Reason: Recheck today's complaints Discharge Instructions: - Discharge Summary Sheet cp - Nonspecific Chest Pain, Adult cp - Aspirin and Your Heart cp Forms: - Medication Reconciliation Form ci - Antibiotic Education ci - Prescription Opioid Use ci - Patient Portal Instructions ci - Leadership Thank You Letter ci Signatures: Dispatcher [employer] EDMT Kev Vick PA PA cp Shady Galindo, RN RN jb4 IhGricelda benz Chris Patterson RN RN bm8 Flory Huynh RN jj7 Corrections: (The following items were deleted from the chart) 00:50 00:50 BASIC METABOLIC PANEL+C.LAB.BRZ ordered. EDMS EDMS 00:50 00:50 CBC+H.LAB.BRZ ordered. EDMS EDMS 00:50 00:50 HEPATIC FUNCTION+C.LAB.BRZ ordered. EDMS EDMS 00:50 00:50 MAGNESIUM+C.LAB.BRZ ordered. EDMS EDMS 00:50 00:50 PROBNP+C.LAB.BRZ ordered. EDMS EDMS 00:50 00:50 PROTIME (+INR)+COAG.LAB.BRZ ordered. EDMS EDMS 00:50 00:50 Troponin High Sensitivity+C.LAB.BRZ ordered. EDMS EDMS 22:23 00:50 The pain radiates to right side of chest, cp cp
--- NOTE | 2024-02-21 03:36 | ER ---
Nurse's Notes [facility] Name: Panchito Ramirez Age: 63 yrs Sex: Male : 1960 Arrival Date: 02/21/2024 Time: 00:27 Bed 15 Private MD: Diagnosis: Chest pain, unspecified Presentation: 02/20 00:36 Chief complaint: Patient states: I was at 1999 for chest pain, I decided not to stay at [facility] that time and I was going to go to [place]. I could not get a ride and would just like some piece of mind, the pain is much better than earlier. Coronavirus screen: At this time, the client does not indicate any symptoms associated with coronavirus-19. Ebola Screen: No symptoms or risks identified at this time. Initial Sepsis Screen: Does the patient meet any 2 criteria? No. Patient's initial sepsis screen is negative. Initial Sepsis Screen: Does the patient have a suspected source of infection? No. Patient's initial sepsis screen is negative. Risk Assessment: Do you want to hurt yourself or someone else? Patient reports no desire to harm self or others. Onset of symptoms was February 21, 2024. Transition of care: patient was not received from another setting of care. 00:36 Method Of Arrival: Ambulatory jb4 00:36 Acuity: ION 2 jb4 Triage Assessment: 00:39 General: Appears in no apparent distress. comfortable, Behavior is calm, cooperative, jb4 appropriate for age. Pain: Complains of pain in chest Pain does not radiate. Pain currently is 2 out of 10 on a pain scale. Pain began 199902/20/24 Is intermittent. Neuro: No deficits noted. Level of Consciousness is awake, alert, obeys commands, Oriented to person, place, time, situation. Cardiovascular: Patient's skin is warm and dry. Respiratory: Airway is patent Respiratory effort is even, unlabored, Respiratory pattern is regular, symmetrical. Derm: Skin is intact, Skin is pink, warm \T\ dry. Musculoskeletal: Circulation, motion, and sensation intact. Range of motion: intact in all extremities. Historical: - Allergies: 00:39 Codeine; jb4 - PMHx: 00:39 Anxiety; High Cholesterol; Hypertension; NSTEMI; jb4 - PSHx: 00:39 Stented artery; jb4 - Immunization history:: Adult Immunizations not up to date. - Infectious Disease History:: Denies. - Social history:: Smoking status: Patient denies any tobacco usage or history of. Screenin:05 [facility] ED Fall Risk Assessment (Adult) History of falling in the last 3 months, bm8 including since admission No falls in past 3 months (0 pts) Confusion or Disorientation No (0 pts) Intoxicated or Sedated No (0 pts) Impaired Gait No (0 pts) Mobility Assist Device Used No (0 pt) Altered Elimination No (0 pt) Score/Fall Risk Level 0 - 2 = Low Risk Oriented to surroundings, Maintained a safe environment, Educated pt \T\ family on fall prevention, incl call for assistance when getting out of bed. Abuse screen: Denies threats or abuse. Nutritional screening: No deficits noted. Tuberculosis screening: No symptoms or risk factors identified. Assessment: 01:05 General: Appears in no apparent distress. comfortable, Behavior is calm, cooperative, bm8 appropriate for age. Pain: Complains of pain in chest Pain radiates to back Pain currently is 2 out of 10 on a pain scale. Neuro: No deficits noted. Level of Consciousness is awake, alert, obeys commands, Oriented to person, place, time, situation, Appropriate for age. Cardiovascular: Reports chest pain, Heart tones S1 S2 present Capillary refill < 3 seconds Patient's skin is warm and dry. Rhythm is regular. Respiratory: No deficits noted. Airway is patent Respiratory effort is even, unlabored, Respiratory pattern is regular, symmetrical. GI: No deficits noted. No signs and/or symptoms were reported involving the gastrointestinal system. : No deficits noted. No signs and/or symptoms were reported regarding the genitourinary system. EENT: No deficits noted. No signs and/or symptoms were reported regarding the EENT system. Derm: No deficits noted. No signs and/or symptoms reported regarding the dermatologic system. Musculoskeletal: No deficits noted. No signs and/or symptoms reported regarding the musculoskeletal system. 02:30 Reassessment: ASSUMED CARE OF PT. PT LYING IN BED. NO PAIN OR DISTRESS NOTED. VS jj7 STABLE. CALL HAWKINS IN REACH. General: Appears in no apparent distress. comfortable, Behavior is calm, cooperative, appropriate for age. Vital Signs: 00:36 Resp 16; Weight 88.45 kg (R); Height 5 ft. 10 in. ; Pain 2/10; jb4 01:05 BP 143 / 86 LA Sitting (auto/reg); bm8 01:05 BP 149 / 95 RA Sitting (auto/reg); bm8 02:00 BP 131 / 80; Pulse 59; Resp 16; Pulse Ox 95% ; jj7 03:00 BP 134 / 79; Pulse 59; Resp 16; Pulse Ox 99% ; jj7 03:45 BP 128 / 80; Pulse 61; Resp 17; Temp 97.6; Pulse Ox 100% ; Pain 0/10; jj7 00:36 Body Mass Index 27.98 (88.45 kg, 177.8 cm) jb4 00:36 Pain Scale: Adult jb4 03:45 Pain Scale: Adult jj7 Jacob Coma Score: 01:05 Eye Response: spontaneous(4). Motor Response: obeys commands(6). Verbal Response: bm8 oriented(5). Total: 15. ED Course: 00:29 Patient arrived in ED. ra3 00:30 Kev Vick PA is PHCP. cp 00:30 Gricelda Montiel is Attending Physician. cp 00:39 Triage completed. jb4 00:39 Arm band placed on right wrist. EKG completed in triage. Results shown to MD. jb4 00:58 Chris Patterson, RN is Primary Nurse. bm8 01:05 Patient has correct armband on for positive identification. Placed in gown. Bed in low bm8 position. Call light in reach. Side rails up X 1. Client placed on continuous cardiac and pulse oximetry monitoring. NIBP monitoring applied. unit secy on. Pulse ox on. NIBP on. Door closed. Noise minimized. Visitors limited. Lights dimmed. Verbal reassurance given. 01:05 No provider procedures requiring assistance completed. Initial lab(s) drawn, by carina cardoso sent to lab. EKG done, by ED staff, reviewed by Kev FERRER X-ray(s) taken. Inserted saline lock: 20 gauge in right antecubital area, using aseptic technique. Blood collected. O2 via room air. 01:35 XRAY Chest (1 view) In Process Unspecified. EDMS 02:14 Report given to rickey Pickens. bm8 02:38 Troponin High Sensitivity Sent. jj7 03:45 IV discontinued, intact, bleeding controlled, No redness/swelling at site. Pressure jj7 dressing applied. Administered Medications: 00:59 Drug: Aspirin PO Chewable Tablet 324 mg PO once; 81 mg tablets x 4 Route: PO; bm8 02:00 Follow up: Response: No adverse reaction jj7 Medication: 01:05 VIS not applicable for this client. bm8 Outcome: 03:36 Discharge ordered by . chelsy 03:45 Discharged to home ambulatory, jj7 03:45 Condition: improved 03:45 Discharge instructions given to patient, Instructed on discharge instructions, follow up and referral plans. Demonstrated understanding of instructions, follow-up care, 03:46 Patient left the ED. jj7 Signatures: Dispatcher [employer] EDMS Kev Vick PA PA cp Bryson, James, RN RN jb4 Flory Huynh RN RN jj7 Gricelda Montiel Ruby ra3 Chris Patterson, RN RN bm8
[2024-02-21 04:20] VITALS: BP 128/80; TEMP 97.6; O2SAT 100
--- NOTE | 2024-02-21 14:28 | RAD REPORT ---
EXAM DESCRIPTION: RAD - Chest Single View - 02/21/2024 1:33 am CLINICAL HISTORY: CHEST PAIN COMPARISON: None TECHNIQUE: Single AP view of the chest. FINDINGS: Lung volumes adequate. Cardiac silhouette is normal in size. No pneumothorax. No large pleural effusion. No focal consolidation. No acute bony finding. IMPRESSION: No evidence of acute cardiopulmonary disease. Electronically signed by: Abbie Patel MD 02/21/2024 01:42 AM CDT Due to temporary technical issues with the PACS/Fluency reporting system, reports are being signed by the in house radiologists without review as a courtesy to insure prompt reporting. The interpreting radiologist is fully responsible for the content of the report
== END 2024-02-21 03:46 | disposition home or self-care (01) ==
LOC: ER 00:27
DX: R07.9 Chest pain, unspecified (principal); I10 Essential (primary) hypertension; Z88.5 Allergy status to narcotic agent
CPT/HCPCS: 36415; 71045; 80048; 80076; 83735; 83880; 84484; 85025; 93005

== ENCOUNTER 2024-10-22 17:41 | Emergency (ER) | payer OTHER, SELFPAY ==
[2024-10-22 18:29] LABS: Absolute Lymphocytes (CBC) 1.3 K/uL (0.7-4.9); Absolute Monocytes 0.5 K/uL (0.1-1.3); Basophils % 0.3 % (0-1.3); Eosinophils % 0.4 % (0-4.4); Hematocrit 46.6 % (39.6-49.0); Hemoglobin 15.5 g/dL (13.6-17.9); Lymphocytes % 14.5 % (15.3-44.8); MCH 29.4 pg (27.0-35.0); MCHC 33.3 g/dL (32.0-36.0); MCV 88.4 fL (80-100); MPV 7.9 fL (7.6-11.3); Neutrophils % 78.8 % (41.7-73.7); Nucleated Red Blood Cells % 0.1 % (0-0); Platelets 261 thou/uL (152-406); RBC Red Blood Cell Count 5.27 M/uL (4.33-5.43); Red Cell Distribution Width 13.3 % (12.1-15.2)
[2024-10-22 18:31] LABS: PT Prothrombin Time 12.4 SECONDS (9.4-12.5); Protime INR 1.11
--- NOTE | 2024-10-22 18:35 | RAD REPORT ---
Procedure: Chest Single View HISTORY: Chest pain COMPARISON: April 2024 FINDINGS: The lungs appear clear of acute infiltrate. No significant pleural effusion noted. The heart is normal size. IMPRESSION: No acute abnormality is displayed.
[2024-10-22 18:48] LABS: Albumin 3.9 g/dL (3.4-5.0); Albumin/Globulin Ratio 1.3 (1.1-1.8); Anion Gap 7.8 mEq/L (5.0-15.0); Bilirubin Direct 0.3 mg/dL (0-0.2); Bilirubin Indirect, Calculated 2.1 mg/dL (0.2-0.8); Bilirubin Total 2.4 mg/dL (0.2-1.0); Globulin 3.1 g/dL (2.3-3.5); Magnesium 2.1 mg/dL (1.6-2.4); Potassium 3.8 mEq/L (3.5-5.1); Troponin High Sensitivity 4.5 pg/mL (<58.9)
--- NOTE | 2024-10-22 19:55 | RAD REPORT ---
EXAMINATION: CT HEAD WITHOUT CONTRAST CT CERVICAL SPINE WITHOUT CONTRAST CLINICAL INDICATION: Visual disturbance. Numbness TECHNIQUE: Axial CT images from the skull base to the vertex without intravenous contrast. Axial CT i mages through the cervical spine were obtained without intravenous contrast. Sagittal and coronal reformatted images were created from the data set. Coronal and sagittal reformatted images were creat ed from the data set. One or more of the following dose reduction techniques were used: Automated exposure control, adjustment of the mA and/or kV according to patient size, and/or iterative reconstr uction. Unless otherwise specified, incidental findings do not require dedicated imaging follow-up. [id number]. Comparison: April 2024 FINDINGS: An intracranial bleed is not seen. Ventricles are normal in caliber. No significant hypodensity within the brain No extra-axial fluid collection. No fluid within the sinuses/mastoids No fracture or dislocation is seen involving the cervical spine. Mild anterior subluxation C4 on C5. Uncal vertebral hypertrophy and left facet hypertrophy L4-5. Mode rate narrowing of the left neural foramina. Uncal vertebral and facet hypertrophy C5-6 results in mild to moderate narrowing left neural foramina . Mild anterior subluxation C5 on C6. IMPRESSION: No acute intracranial abnormality noted A cervical fracture is not seen. Spondylosis C4-5 results in moderate left foraminal stenosis If the patient continues to have symptoms to suggest significant [employer] SUPERVISOR/spinal pathology then MRI would be recommended
--- NOTE | 2024-10-22 20:02 | RAD REPORT ---
EXAMINATION: CTA HEAD CLINICAL INDICATION: Numbness TECHNIQUE: Axial CT images were obtained through the head after 100 cc Isovue-370 intravenous contras t utilizing angiographic protocol with 3D post-processing (maximum intensity projection images, volume rendered images and/or shaded surface rendered images). One or more of the following dose red uction techniques were used: Automated exposure control, adjustment of the mA and/or kV according to patient size, and/or iterative reconstruction. Unless otherwise specified, incidental findings do not require dedicated imaging follow-up. COMPARISON: None FINDINGS: Distal internal carotid, basilar, anterior cerebral, middle cerebral and posterior cerebral arteries do not demonstrate a significant stenosis An aneurysm not noted. No large vessel occlusion IMPRESSION: No acute vascular abnormality displayed
--- NOTE | 2024-10-22 20:03 | RAD REPORT ---
EXAMINATION: Neck Angio CLINICAL INDICATION: Numbness TECHNIQUE: Axial CT images were obtained from the aortic arch to the skull base after intravenous adm inistration of 100 cc Isovue-370 utilizing angiographic protocol. Multiplanar reformats, as well as 3D post-processing (maximum intensity projection images, volume rendered images and/or shaded surface rendered images) were generated and reviewed. One or more of the following dose reduction techniques were used: Automated exposure control, adjustment of the mA and/or kV according to patient size, and/or iterative reconstruction. Unless otherwise specified, incidental findings do not require dedicated imaging follow-up. COMPARISON: No prior exam. FINDINGS: The visualized aortic arch and great vessels do not demonstrate a significant abnormality Mild plaque within the common carotid, internal carotid, external carotid and vertebral arteries bila terally No significant stenosis noted. A dissection is not seen. Methods for NASCET criteria: Mild stenosis, 0% to 49%; Moderate stenosis 50% to 69%; Severe stenosis, 70% to 99% IMPRESSION: No acute vascular abnormality displayed
--- NOTE | 2024-10-22 20:24 | EDPHYS ---
Physician Documentation [facility] Name: Panchito Ramirez Age: 63 yrs Sex: Male : 1960 Arrival Date: 10/22/2024 Time: 17:41 Bed 8 Private MD: ED Physician Kev Cat HPI: 10/22 18:38 This 63 yrs old Male presents to ER via Ambulatory with complaints of Neck Problem - sb4 tingling, Head tingling. 18:46 Patient with history of hypertension and coronary artery disease on amlodipine and sb4 plavix presents with tingling in his posterior neck that radiates up his head. States that it has been associated with some headaches and dizziness. Additionally, he has some episodes of shortness of breath. He states that his blood pressure has been running higher than usual as well. He denies any chest pain and states that he did have a negative cardiac catheterization recently. Historical: - Allergies: 17:57 Codeine; hb - PMHx: 17:57 High Cholesterol; Hypertension; NSTEMI; Anxiety; hb - PSHx: 17:57 Stented artery; hb - Immunization history:: Adult Immunizations up to date. - Infectious Disease History:: Denies. - Social history:: Smoking status: Patient denies any tobacco usage or history of. ROS: 18:46 Constitutional: Negative for fever, chills, and weight loss, sb4 18:46 Neuro: Positive for dizziness, per HPI, 18:46 All other systems are negative, Exam: 18:46 Constitutional: This is a well developed, well nourished patient who is awake, alert, sb4 and in no acute distress. Head/Face: Normocephalic, atraumatic. Eyes: Extra-ocular motions intact. Periorbital areas with no swelling, redness, or edema. ENT: Mucous membranes moist. Cardiovascular: Regular rate and rhythm with a normal S1 and S2. Respiratory: No increased work of breathing, no retractions or nasal flaring. Abdomen/GI: Soft, non-tender, no distension. Skin: Warm, dry with normal turgor. Normal color with no rashes, no lesions, and no evidence of cellulitis. MS/ Extremity: Pulses equal, no cyanosis. Neurovascular intact. Full, normal range of motion. Neuro: Awake and alert, GCS 15, oriented to person, place, time, and situation. Motor strength 5/5 in all extremities. Sensory grossly intact. Vital Signs: 17:57 BP 172 / 104; Pulse 87; Resp 16; Temp 98.3(TE); Pulse Ox 99% on R/A; hb 19:00 BP 125 / 82; Pulse 71; Resp 17; Pulse Ox 97% on R/A; al5 19:51 BP 145 / 94; sb4 20:30 BP 135 / 83; Pulse 69; Resp 17; Pulse Ox 100% on R/A; al5 MDM: 17:59 Medical Screening Exam initiated sb4 20:23 Data reviewed: vital signs, nurses notes, lab test result(s), EKG, radiologic studies, sb4 and as a result, I will discharge patient. Counseling: I had a detailed discussion with the patient and/or guardian regarding the historical points, exam findings, and any diagnostic results supporting the discharge/admit diagnosis, the presence of at least one elevated blood pressure reading (>120/80) during this emergency department visit, lab results, radiology results, the need for outpatient follow up, a neurologist, to return to the emergency department if symptoms worsen or persist or if there are any questions or concerns that arise at home. 10/22 18:16 Order name: Basic Metabolic Panel; Complete Time: 18:48 sb4 10/22 18:16 Order name: CBC with Diff; Complete Time: 18:32 sb4 10/22 18:16 Order name: LFT's; Complete Time: 18:48 sb4 10/22 18:16 Order name: Magnesium; Complete Time: 18:48 sb4 10/22 18:16 Order name: NT PRO-BNP; Complete Time: 18:48 sb4 10/22 18:16 Order name: PT-INR; Complete Time: 18:32 sb4 10/22 18:16 Order name: Troponin HS; Complete Time: 18:48 sb4 10/22 18:16 Order name: XRAY Chest (1 view); Complete Time: 18:35 sb4 10/22 18:16 Order name: Head C Spine MPR Wo Con CT; Complete Time: 19:56 sb4 10/22 18:16 Order name: Head Angio CT; Complete Time: 20:03 sb4 10/22 18:16 Order name: Neck Angio CT; Complete Time: 20:03 sb4 10/22 18:16 Order name: Cardiac monitoring; Complete Time: 18:20 sb4 10/22 18:16 Order name: EKG - Nurse/Tech; Complete Time: 18:39 sb4 10/22 18:16 Order name: IV Saline Lock; Complete Time: 18:20 sb4 10/22 18:16 Order name: Labs collected and sent; Complete Time: 18:20 sb4 10/22 18:16 Order name: O2 Per Protocol; Complete Time: 18:20 sb4 10/22 18:16 Order name: O2 Sat Monitoring; Complete Time: 18:20 sb4 EC:36 Rate is 70 beats/min. Rhythm is regular, Normal Sinus Rhythm. MI interval is normal at sb4 136 msec. QRS interval is normal at 88 msec. QT interval is normal at 380 msec. No Q waves. T waves are Normal. No ST changes noted. Clinical impression: No evidence of ischemia. Interpreted by me. Reviewed by me. Administered Medications: No medications were administered Disposition Summary: 10/22/24 20:23 Discharge Ordered Notes: Location: Home sb4 Problem: an ongoing problem sb4 Symptoms: are unchanged sb4 Condition: Stable sb4 Diagnosis - Essential (primary) hypertension sb4 - Paresthesia of skin sb4 Followup: sb4 - With: Bhavik Pak MD - When: As needed - Reason: Recheck today's complaints, Re-evaluation by your physician Discharge Instructions: - Discharge Summary Sheet sb4 - Paresthesia sb4 - Hypertension, Adult, [id number] sb4 - How to Take Your Blood Pressure, [id number] sb4 Forms: - Patient Portal Instructions sb4 - Leadership Thank You Letter sb4 Addendum: 10/25/2024 12:41 Co-signature as Attending Physician, Kev Cat MD I agree with the assessment and c wilcox plan of care. Signatures: Dispatcher [employer] Kev Martin MD MD cha Baxter, Heather, Rama Diggs RN, PA-C PAGen sb4 Corrections: (The following items were deleted from the chart) 10/22 18:17 18:17 BASIC METABOLIC PANEL+C.LAB.BRZ ordered. EDMS EDMS 18:17 18:17 CBC+H.LAB.BRZ ordered. EDMS EDMS 18:17 18:17 HEPATIC FUNCTION+C.LAB.BRZ ordered. EDMS EDMS 18:17 18:17 MAGNESIUM+C.LAB.BRZ ordered. EDMS EDMS 18:17 18:17 PROBNP+C.LAB.BRZ ordered. EDMS EDMS 18:17 18:17 PROTIME (+INR)+COAG.LAB.BRZ ordered. EDMS EDMS 18:17 18:17 Troponin High Sensitivity+C.LAB.BRZ ordered. EDMS EDMS 18:17 18:17 Chest Single View+RAD.RAD.BRZ ordered. EDMS EDMS 18:17 18:17 Head C Spine MPR Wo Con+CT.RAD.BRZ ordered. EDMS EDMS 18:17 18:17 Head Angio+CT.RAD.BRZ ordered. EDMS EDMS 18:17 18:17 Neck Angio+CT.RAD.BRZ ordered. EDMS EDMS
--- NOTE | 2024-10-22 20:24 | ER ---
Nurse's Notes [facility] Name: Panchito Ramirez Age: 63 yrs Sex: Male : 1960 Arrival Date: 10/22/2024 Time: 17:41 Bed 8 Private MD: Diagnosis: Essential (primary) hypertension;Paresthesia of skin Presentation: 10/22 17:57 Chief complaint: SOB, headache, tingling in back of neck and head x 2 days. Coronavirus hb screen: At this time, the client does not indicate any symptoms associated with coronavirus-19. Ebola Screen: No symptoms or risks identified at this time. Initial Sepsis Screen: Does the patient meet any 2 criteria? No. Patient's initial sepsis screen is negative. Does the patient have a suspected source of infection? No. Patient's initial sepsis screen is negative. Risk Assessment: Do you want to hurt yourself or someone else? Patient reports no desire to harm self or others. Onset of symptoms was October 20, 2024. 17:57 Method Of Arrival: Ambulatory hb 17:57 Acuity: ION 3 hb Historical: - Allergies: 17:57 Codeine; hb - PMHx: 17:57 High Cholesterol; Hypertension; NSTEMI; Anxiety; hb - PSHx: 17:57 Stented artery; hb - Immunization history:: Adult Immunizations up to date. - Infectious Disease History:: Denies. - Social history:: Smoking status: Patient denies any tobacco usage or history of. Screenin:52 [facility] ED Fall Risk Assessment (Adult) History of falling in the last 3 months, al5 including since admission No falls in past 3 months (0 pts) Confusion or Disorientation No (0 pts) Intoxicated or Sedated No (0 pts) Impaired Gait No (0 pts) Mobility Assist Device Used No (0 pt) Altered Elimination No (0 pt) Score/Fall Risk Level 0 - 2 = Low Risk Oriented to surroundings, Maintained a safe environment, Hourly rounding (assess needs \T\ fall precautionary measures) done. Abuse screen: Denies threats or abuse. Denies injuries from another. Nutritional screening: No deficits noted. Tuberculosis screening: No symptoms or risk factors identified. Assessment: 19:50 General: Appears in no apparent distress. Behavior is calm, cooperative, anxious. Pain: al5 Denies pain. Neuro: Level of Consciousness is awake, alert, obeys commands, Oriented to person, place, time, situation, Truck Washer are equal bilaterally Moves all extremities. Full function Gait is steady, Speech is normal, Facial symmetry appears normal, c/o head and neck tingling. Cardiovascular: Capillary refill < 3 seconds Patient's skin is warm and dry. Rhythm is sinus rhythm. Respiratory: Airway is patent Respiratory effort is even, unlabored, Respiratory pattern is regular, symmetrical, Breath sounds are clear bilaterally. GI: No signs and/or symptoms were reported involving the gastrointestinal system. : No signs and/or symptoms were reported regarding the genitourinary system. EENT: No signs and/or symptoms were reported regarding the EENT system. Derm: Skin is intact, is healthy with good turgor, Skin is pink, warm \T\ dry. normal. Musculoskeletal: No signs and/or symptoms reported regarding the musculoskeletal system. 20:52 Reassessment: Patient appears in no apparent distress at this time. No changes from al5 previously documented assessment. Patient and/or family updated on plan of care and expected duration. Pain level reassessed. Patient is alert, oriented x 3, equal unlabored respirations, skin warm/dry/pink. Vital Signs: 17:57 BP 172 / 104; Pulse 87; Resp 16; Temp 98.3(TE); Pulse Ox 99% on R/A; hb 19:00 BP 125 / 82; Pulse 71; Resp 17; Pulse Ox 97% on R/A; al5 19:51 BP 145 / 94; sb4 20:30 BP 135 / 83; Pulse 69; Resp 17; Pulse Ox 100% on R/A; al5 ED Course: 17:45 Patient arrived in ED. im 17:46 Rama Rolle PA-C is [facility]. sb4 17:46 Kev Cat MD is Attending Physician. sb4 17:58 Triage completed. hb 17:58 Arm band placed on. hb 18:25 XRAY Chest (1 view) In Process Unspecified. EDMS 18:38 Martha Quevedo, RN is Primary Nurse. ap3 19:13 Head C Spine MPR Wo Con CT In Process Unspecified. EDMS 19:[address] In Process Unspecified. EDMS 19:[address] In Process Unspecified. EDMS 19:52 Patient has correct armband on for positive identification. Bed in low position. Call al5 light in reach. Side rails up X 1. Provided Education on: plan of care, notified of wait time for results. 19:53 No provider procedures requiring assistance completed. Inserted saline lock: 20 gauge al5 in left antecubital area, using aseptic technique. ,using aseptic technique. done by previous shift nurse. 20:23 Bhavik Pak MD is Referral Physician. sb4 20:53 IV discontinued, intact, bleeding controlled, No redness/swelling at site. Pressure al5 dressing applied. Administered Medications: No medications were administered Medication: 19:52 VIS not applicable for this client. al5 Outcome: 20:23 Discharge ordered by . sb4 20:53 Discharged to home ambulatory, al5 20:53 Condition: good 20:53 Discharge instructions given to patient, Instructed on discharge instructions, follow up and referral plans. Demonstrated understanding of instructions, follow-up care, 20:53 Patient left the ED. al5 Signatures: Dispatcher [employer] EDRI June Crawford RN RN hb Prokisch, Amanda, RN RN ap3 Rama Rolle, PA-Ondina PA-C sb4 Kerline Bernardo Amanda RN RN al5
[2024-10-22 21:04] VITALS: TEMP 98.3
[2024-10-22 21:21] VITALS: BP 135/83; O2SAT 100
--- NOTE | 2024-10-26 13:46 | EKG ---
Test Date: 2024-10-22 Test Time: 18:31:38 Supervisor Gluing: AM MEASUREMENT RESULTS: Intervals: Rate: 70 ND: 136 QRSD: 88 QT: 380 QTc: 410 [place]: P: 66 ND: 136 QRS: 71 T: 50 INTERPRETIVE STATEMENTS: Normal sinus rhythm Normal ECG Compared to ECG 05/23/2024 02:22:12 Myocardial infarct finding no longer present Electronically Signed On 10-26-24 13:38:40 ORE WASHER by Gordon Reed
== END 2024-10-22 20:53 | disposition home or self-care (01) ==
LOC: ER 17:41
DX: I10 Essential (primary) hypertension (principal); R20.2 Paresthesia of skin; E78.00 Pure hypercholesterolemia, unspecified; F41.9 Anxiety disorder, unspecified
CPT/HCPCS: 93005; 85025; 80048; 36415; 83735; 85610; 80076; 84484; 83880; 70450; 72125; 70496; 70498; 71045; 99283; Q9967